=== PATIENT | female | born 1990 | race Hispanic/Latino ===

== ENCOUNTER 2016-08-10 14:22 | Emergency (ER) | payer MEDICARE, MEDICAID ==
[~2016-08-10 14:22] MED LIST: Acetaminophen PO; CARV25TA2 PO; CHOL500050 PO; DILT30TA30 PO; GABA-500 PO; INSLIS SUBQ; LORA10CA PO; MYCO180T3 PO; NORT25CA PO; OMEP40CA36 PO; OXYC-474 PO; PRD5T PO; PREG50CA PO; RANI150T11 PO; SEVE800T7 PO; SPIR25TA PO; TACR1CAP8 PO
[2016-08-10 14:27] VITALS: BP 180/110; PULSE 75; RESP 20; O2SAT 57
--- NOTE | 2016-08-10 16:08 | ED.REPORT ---
HPI-Extremity Problem Lower Date of Service Aug 10, 2016 ED Provider: Ezequiel Thomas MD Pt is a 26 y.o. female with a hx of ESRD and Type 1 DM who presents to the ED c/ o right foot pain worsening today. Pt is status post a right forefoot amputation , 1 week ago, performed by Dr. Jc. Pt is currently taking 5mg of Oxycodone every 4 hours with no relief. Pt is also on gabapentin. She states that her sugars have been good recently but has not taken them today. She states that she is currently on dialysis, Saturday, Saturday, and Saturday. Nursing Notes Stated Complaint: R FOOT Chief Complaint: Extremity Trauma Nursing Notes Reviewed: Yes Allergies: Coded Allergies: Contrast Media (Verified Allergy, Severe, FULL BODY RASH AND HIVES, ) tramadol (Verified Allergy, Unknown, 06/14/16) Scheduled ([Acetaminophen]) 325 MG TABLET 975 MG PO TID Carvedilol (Carvedilol) 25 Mg Tablet 50 MG PO BID Cholecalciferol (Vitamin D3) (Vitamin D3) 50,000 Unit Capsule 50,000 UNIT PO WEEKLY Given at Dialysis Diltiazem (Cardizem) 30 Mg Tablet 30 MG PO BID Gabapentin (Gabapentin) 100 Mg Capsule 200 MG PO TID Insulin Human Lispro (HumaLOG U100 Insulin Vial) 100 Unit/Ml Unit 0 UNIT SUBQ WMHS Check blood sugars before meals and at bedtime. Use correction factor only before meals. Blood Sugar Lispro Correction: <151, 0 units; 151-175, 1 unit; 176-200, 2 units; 201-225, 3 units; 226-250, 4 units; 251-275, 5 units; 276-300 , 6 units; 301-325, 7 units; 326-350, 8 units; 351-375, 9 units; 376-400, 10 units; >400, 12 units. Loratadine (Claritin) 10 Mg Capsule 10 MG PO DAILY Mycophenolate DR (Mycophenolic DR) 180 Mg Tablet 180 MG PO BID Nortriptyline (Nortriptyline) 25 Mg Capsule 25 MG PO HS Omeprazole (Omeprazole) 40 Mg Capsule.dr 40 MG PO DAILY Prednisone (PredniSONE) 5 Mg Tab 5 MG PO DAILY Pregabalin (Lyrica) 50 Mg Capsule 50 MG PO HS Ranitidine (Zantac) 150 Mg Tablet 150 MG PO BID Sevelamer Carbonate (Renvela) 800 Mg Tablet 2,400 MG PO TIDWM Spironolactone (Aldactone) 25 Mg Tablet 25 MG PO BID Tacrolimus (Tacrolimus) 1 Mg Capsule 1 MG PO BID Scheduled PRN Oxycodone (Roxicodone) 5 Mg Tablet 5-10 MG PO Q4H PRN PRN For Pain for acute ischemic limb pain General Time Seen by MD: 15:36 Chief Complaint Foot injury right Hx Obtained From: Patient Arrived By: Walk-in Onset Occurred: 1 week ago Symptom Duration: Since onset Location: : Foot right Quality: Painful Severity: Current: Severe Recent Healthcare: Previous surgery Past Medical History Past Medical History Notes: Business Machine Mechanic: Dr. Ra Dickens and Dr. Mckeon Auto Wash Buffer: Dr. Jc Past Medical History 1. end-stage renal disease--dialysis dependent with poor clearance and chronic uremia, 2. Hypertension with hypertensive heart disease and hypertensive nephrosclerosis. 3. 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 b. Fistula placement in left upper extremity February 2003, with previous attempted failed right-sided fistula. 4. Prednisone-induced diabetes mellitus, insulin requiring, diagnosed in September 2005. a. Admission in 2008 for DKA. 5. G3, P2, with one miscarriage. 6. GERD. 7. Allergic rhinitis. 8. Acute on chronic anemia 9. gangrene of left big toe 10. lower extremity vascular disease Past Surgical History Renal transplant, [facility], [place], 2004 Fistula placement, 2008 Placement of peritoneal dialysis catheter. Multiple left toe amputations. Reports: Tubal ligation Family History non-contributory Smoking History Never Smoker Social History Alcohol Use: Denies alcohol use Drug Use: Denies drug use Other Social History: Good social support, Local resident Ambulatory Status Independent Review of Systems Musculoskeletal: Reports: Extremity pain Complete sys rev & neg: except as marked. Physical Exam Initial Vital Signs Vital Signs (First) Date Time Temp Pulse Resp B/P Pulse Ox O2 Delivery O2 Flow Rate FiO2 08/10/16 14:27 36.9 75 20 180/110 57 Room Air Initial VS: Reviewed General/Constitutional: Well-developed, Well-nourished Head / Eyes: Atraumatic, Normocephalic Skin: Warm, Dry, No cyanosis Neurologic: Alert, Oriented, Nonfocal Psychiatric: Mood/affect normal, Behavior normal, Normal thought content Lower Extremity / Pelvis / MS: Atraumatic, Non-tender, No erythema Ankle / Foot: No erythema Amputation of right forefoot, nylon sutures present Right foot wound is clean and closed with no purulent discharge, well perfused, no erythema or induration. Left foot bandages are present. Respiratory / Chest: Atraumatic, Breath sounds NL, Breath sounds = bilat, No respiratory distress, No rales, No rhonchi, No wheezing, No retractions, No stridor Cardiovascular: Heart rate NL, Regular rhythm, Heart sounds NL, No gallop, No murmurs, No rubs Abdomen: Atraumatic, Soft, Non-tender, No guarding, No rebound, No distention Re-Eval/Medical Decision Med Decision/Clinical Course In summary, the patient is a 26-year-old female with a history of type I diabetes, severe peripheral neuropathy and recent amputation of the right forefoot presents the emergency department due to uncontrolled pain. She has had no fevers, redness, discharge, swelling or signs of infection about the operative site. Examination of the operative site shows good healing, intact skin and no evidence of infection. She is nontoxic in appearance. She reports that her blood sugars have been running from 100-200 and that she is taking her insulin. She is currently taking oxycodone 5 mg every 4 hours and states that this has been inadequate to control her pain. Here the emergency department she was detained on pulse oximetry and continuous cardiac monitoring and we missed her 2 mg of intramuscular hydromorphone. This managed her pain well. She has been advised to call her surgeon and primary care doctor for ongoing recommendations regarding pain management. In the meantime she may increase her oxycodone 25-10 mg every 6 hours. Follow initial precautions were reviewed in detail and she was discharged in good condition. Source of Hx: Old records Re-Evaluation/Progress : Time of Eval: 17:36 Re-Evaluation/Progress Note: Pt rechecked. Pt pain is improved. Discussed plan for discharge, pt understands and agrees with plan. Counseled Regarding: Diagnosis, Need for follow-up, When/why to return to ED Discharge & Departure Impression: Primary Impression: Postoperative pain Additional Impressions: History of type 1 diabetes mellitus Toe amputation status Laterality: right Qualified Code: Z89.421 - Acquired absence of other right toe(s) Disposition: Home Discharge Condition All VS Reviewed: Yes Condition: Stable Additional Instructions: Thank you for seeking care at emergency room. It is difficult for us to make definitive diagnoses in the ED but we believe that you are experiencing postoperative pain. Our primary goal today in the ED was to evaluate you for any life-threatening conditions. Your evaluation was reassuring. You were treated here with intramuscular hydromorphone. You are currently taking oxycodone 5 mg every 4-6 hours, you may increase this to 5-10 mg every 4- 6 hours. You should follow up with your surgeon or primary care physician regarding any ongoing prescriptions for pain medication. You should follow-up with your primary doctor in the next week. You should return to the ED immediately if you develop worse pain, redness, swelling, discharge from your surgical site, fevers, vomiting, cough, shortness of breath, chest pain, lightheadedness, weakness or any other concerning signs or symptoms. Thank you for letting us partake in your care today. Referrals: Neelima Dumont (PCP) Scribjaky Attestation Portions of this note were transcribed by Lida Darden. I, Dr. Thomas personally performed the history, physical exam and medical decision-making; I reviewed and confirmed the accuracy of the information in the transcribed note. Signed by: Philip Watts, 08/10/2016 and 1750. copies to: Neelima Dumont Beck O MD Aug 10, 2016 16:08 LIDA DARDEN Aug 10, 2016 16:19
[2016-08-10] MEDS ORDERED: HYDROmorphone 0.5 mg/0.5 mL iSecure Syringe IM ONE (16:15)
[2016-08-10 17:45] VITALS: BP 141/89; PULSE 97; RESP 14; O2SAT 98
[2016-11-05] MEDS ORDERED: INSU100V7 SUBQ ×2 (09:59)
== END 2016-08-10 17:46 | disposition home or self-care (01) ==
LOC: SED 14:22
DX: G89.18 Other acute postprocedural pain (principal); E10.22 Type 1 diabetes mellitus with diabetic chronic kidney disease; E10.40 Type 1 diabetes mellitus with diabetic neuropathy, unspecified; M79.671 Pain in right foot; I12.0 Hypertensive chronic kidney disease with stage 5 chronic kidney disease or end stage renal disease; N18.6 End stage renal disease; K21.9 Gastro-esophageal reflux disease without esophagitis; Z89.431 Acquired absence of right foot; Z99.2 Dependence on renal dialysis; Z79.4 Long term (current) use of insulin; Z91.041 Radiographic dye allergy status; Z88.5 Allergy status to narcotic agent
CPT/HCPCS: 96372; 99283; J1170

== ENCOUNTER 2016-08-23 01:01 | Day surgery (SDC) | payer MEDICARE, MEDICAID ==
[~2016-08-23] VITALS: Ht 149.9 cm; Wt 52.0 kg
[2016-08-23] VITALS (11 sets, daily range): BP systolic 111–180; BP diastolic 77–98; PULSE 68–84; RESP 12–20; O2SAT 94–100
--- NOTE | 2016-08-23 06:30 | NUR ---
ADMISSION NOTE FEMALE PT ADMITTED FOR FISTULOGRAM. DISCUSSED PLAN OF CARE WITH PT . SEE ADMIT AND FLOW SHEET
[2016-08-23] MEDS ORDERED: NOVALOG SQ (07:32)
[2016-08-23] MEDS ORDERED: ONDA4TAB6 PO (07:38)
[2016-08-23] MEDS ORDERED: FLUD0.1T PO (07:38)
[2016-08-23] MEDS ORDERED: Heparin 5,000 Units/500 mL NS Premix IV ONE ×3 (07:42→09:04)
[2016-08-23 07:43] LABS: BASOPHILS % (AUTO) 0 % (0-3); EOSINOPHILS % (AUTO) 0.6 % (0-5); MONOCYTES % (AUTO) 0.9 % (4-12); Mean Corpuscular Hemoglobin 26.8 pg (27.0-35.0); Mean Corpuscular Volume 82.2 fL (81-100); NEUTROPHILS % (AUTO) 87.8 % (40-74); Platelet Count 196 bil/L (150-400)
[2016-08-23 08:01] LABS: INR 1.01 ratio
[2016-08-23] MEDS ORDERED: Heparin 1,000 Unit/mL 10 mL Inj ONE (08:02)
[2016-08-23] MEDS ORDERED: 0.9% Sodium Chloride 1,000 ML ONE (08:11)
[2016-08-23] MEDS ORDERED: predniSONE 20 mg Tablet PO ONE (08:20)
[2016-08-23] MEDS ORDERED: CeFAZolin 1 Gm/50 mL D5W Duplex Bag IV ONE (08:27)
[2016-08-23] MEDS ORDERED: fentaNYL-PF 50 mCg/mL 2 mL Inj ONE (08:43)
--- NOTE | 2016-08-23 10:00 | NUR ---
POST PROCEDURE NOTE RETURNED FROM MOTION PICTURE PROJECTIONIST. PURSE STRING SUTURE ON LEFT SITE. DROWSY. SEE FLOW SHEET
[2016-08-23] MEDS ORDERED: diphenhydrAMINE 25 mg Capsule PO ONE ×2 (10:40→10:50)
--- NOTE | 2016-08-23 13:30 | DRSVH ---
PROCEDURE: ARTERIO VENOUS FISTULOGRAM (PNL) INDICATIONS: ESRD TECHNIQUE: FLUOROSCOPY TIME: 14.4 minutes. Technique: 1. Conscious sedation for 60 minutes. 2. Antegrade access of the left upper extremity venous outflow. 3. Blood angioplasty of a moderate grade stenosis at the confluence of the cephalic and axillary vein s. 4. Completion fistulogram. COMPARISON: [facility], XA, ARTERIO VENOUS FISTULOGRAM (PNL), 06/19/2016, 10:51. The indications, alternatives, benefits, risks, and complications of the procedure were explained to the patient. Informed written consent was obtained and placed in the chart. The patient was brought to the angiography suite, and conscious sedation was administered intravenously by snf s taff, while continuous cardiorespiratory monitoring was performed. Maximum sterile barrier technique was employed per standard protocol, including hand hygiene, cap, ma sk, sterile gown and gloves, and 2% chlorhexidine. One percent lidocaine was used to anesthetize the skin over the area of interest. Using Seldinger technique and a micropuncture kit, the venous outflow was accessed in antegrade fashion at the peripheral portion of the vein. Fistulogram was performed i n stations to the level of the SVC. The micropuncture sheath was exchanged for a short 6 [place] sheat h. An 035 wire was advanced with the tip in the central portion of the axillary vein with the aid of a Glidewire and Kumpe catheter. Balloon angioplasty was performed for a moderate grade stenosis at th e central portion of the cephalic vein. Fistulogram was performed. Multiple attempts were undertaken to guide a wire into the brachiocephalic vein across the weblike stenosis without success. This is at tributable to a large 360 curve in the central portion of the cephalic vein. At this point, the wire was removed and the sheath was removed and hemostasis was achieved. FINDINGS: Initial fistulogram demonstrates a patent venous outflow of the peripheral and midportion of the left upper extremity fistula. A moderate grade stenosis is present at the confluence of the ce phalic and axillary veins. Status post angioplasty of this region, no definite stenosis persists. A focal high-grade weblike stenosis is present at the confluence of the axillary and internal jugular veins. No angioplasty was performed of this region as a wire could not access this stenosis. IMPRESSION: 1. Status post balloon angioplasty of a moderate grade stenosis at the confluence of the cephalic and axillary veins. 2. High-grade, weblike stenosis at the confluence of the internal jugular and axillary veins. Please note, given the marked tortuosity of the inflow vein, a wire could not be passed across the stenosis from the left upper extremity. This stenosis is likely the etiology of the patient's left upper extre mity swelling. This lesion may be accessible from a right femoral vein approach. Repeat fistulogram f rom a right femoral approach is recommended if. This finding was discussed with Dr. Gastelum at 1:15 PM on 08/23/16. Dictated by: Saray Veliz M.D. on 08/23/2016 at 13:06 Approved by: Saray Veliz M.D. on 08/23/2016 at 13:28
--- NOTE | 2016-08-23 14:15 | NUR ---
DISCHARGE NOTE SITE STABLE, UP IN ROOM, NO COMPLAINTS.INSTRUCTIONS GIVEN. HOME WITH
[2016-11-05] MEDS ORDERED: INSU100V7 SUBQ ×2 (09:59)
== END 2016-08-23 23:59 | disposition home or self-care (01) ==
LOC: SOUO 01:01
PROVIDERS: ATTEND Radiology Diagnostic Radiology
DX: I87.1 Compression of vein (principal); E11.22 Type 2 diabetes mellitus with diabetic chronic kidney disease; I12.0 Hypertensive chronic kidney disease with stage 5 chronic kidney disease or end stage renal disease; N18.6 End stage renal disease; E11.42 Type 2 diabetes mellitus with diabetic polyneuropathy; N25.0 Renal osteodystrophy; D63.1 Anemia in chronic kidney disease; Z79.4 Long term (current) use of insulin; Z91.041 Radiographic dye allergy status; Z99.2 Dependence on renal dialysis
CPT/HCPCS: 36415; 36902; 80048; 85025; 85610; 85730; 99152; 99153; C1725; C1769; C1894; J1644; J2250; J3010; Q9967

== ENCOUNTER 2016-08-30 00:22 | Day surgery (SDC) | payer MEDICARE, MEDICAID ==
[~2016-08-30] VITALS: Ht 152.4 cm; Wt 52.0 kg
[2016-08-30] VITALS (10 sets, daily range): BP systolic 134–162; BP diastolic 85–93; PULSE 71–86; RESP 15–16; O2SAT 95–100
[~2016-08-30 00:22] MED LIST changes: +FLUD0.1T PO; -INSLIS SUBQ; +NOVALOG SQ; +ONDA4TAB6 PO; -SPIR25TA PO
[2016-08-30] MEDS ORDERED: 0.9% Sodium Chloride 1,000 ML ONE (09:17)
[2016-08-30] MEDS ORDERED: Heparin 5,000 Units/500 mL NS Premix IV ONE (09:20)
[2016-08-30] MEDS ORDERED: Heparin 1,000 Unit/mL 10 mL Inj ONE (09:20)
[2016-08-30] MEDS ORDERED: CeFAZolin 1 Gm/50 mL D5W Duplex Bag IV ONE (09:25)
[2016-08-30] MEDS ORDERED: fentaNYL-PF 50 mCg/mL 2 mL Inj ONE (09:46)
--- NOTE | 2016-08-30 11:46 | DRSVH ---
PROCEDURE: VENOGRAPHY EXTREMITY UNILAT INDICATIONS: ESRD COMPARISON: [facility], XA, ARTERIO VENOUS FISTULOGRAM (PNL), 08/23/2016, 8:52. Fluoroscopy time: 9.8 minutes Technique: 1. Conscious sedation for 30 minutes. 2. Sonographically guided right femoral vein access. 3. Right brachiocephalic venogram. 4. Sheath removal hemostasis. The indications, alternatives, benefits, risks, and complications of the procedure were explained to the patient. Informed written consent was obtained and placed in the chart. The patient was brought to the angiography suite, and conscious sedation was administered intravenously by long term s taff, while continuous cardiorespiratory monitoring was performed. Maximum sterile barrier technique was employed per standard protocol, including hand hygiene, cap, ma sk, sterile gown and gloves, and 2% chlorhexidine. Sterile ultrasound probe cover was also utilized. 1% lidocaine was used to anesthetize the skin over the right femoral vein. Under ultrasound guidanc e using a micropuncture kit the right femoral vein was accessed in an antegrade fashion. The micropun cture sheath was exchanged for a 5 [place] sheath an 035 wire and angled catheter were advanced into t he right brachiocephalic vein. Multiple attempts were undertaken to advance the wire into the central portion of the subclavian vein without success. A venogram was performed in this region. Once the ce ntral portion of the subclavian vein was determined to be completely occluded, the wire, catheter, an d sheath were removed and hemostasis was achieved. FINDINGS: The central aspect of the left subclavian vein is occluded at the confluence with the inter nal jugular vein. IMPRESSION: 1. 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 In retrospect, this finding is corroborated on the fistulogram dated 08/23/16 . There is delayed filling of the brachiocephalic vein with respect to the subclavian vein, likely be cause the brachiocephalic vein is filling via collaterals not the subclavian vein. This finding was discussed with Dr. Gastelum at 11:39 AM on 08/30/16. Consider vascular surgery consulta tion. Dictated by: Saray Veliz M.D. on 08/30/2016 at 11:36 Approved by: Saray Veliz M.D. on 08/30/2016 at 11:44
--- NOTE | 2016-08-30 12:30 | NUR ---
TD ASSUMED CARE OF PT AT 1040 UPON RETURN FROM CHILDREN'S BOOK AUTHOR. RIGHT GROIN VENOUS APPROACH IS COVERED WITH OPSITE AND IS C/D/I WITH NO BLEEDING OR HEMATOMA NOTED. RIGHT POST TIB 2+, RIGHT LEG IS WARM. PT IS AWAKE AND TAKING MEAL. VSS.
--- NOTE | 2016-08-30 13:10 | NUR ---
TD DISCHARGE PT COMPLETED BEDREST TIME. RIGHT GROIN HAS REMAINED STABLE, NO BLEEDING OR HEMATOMA PRESENT. DISCHARGE INSTRUCTIONS INCLUDING POST SEDATION AND F/U WERE REVIEWED AND PT VERBALIZED UNDERSTANDING. SHE WAS DISCHARGED WITH FAMILY MEMBER AT 1300 VIA W/C IN STABLE CONDITION.
[2016-11-05] MEDS ORDERED: INSU100V7 SUBQ ×2 (09:59)
== END 2016-08-30 23:59 | disposition home or self-care (01) ==
LOC: SOUO 00:22
PROVIDERS: ATTEND Radiology Vascular & Interventional Radiology
DX: I82.B12 Acute embolism and thrombosis of left subclavian vein (principal); I12.0 Hypertensive chronic kidney disease with stage 5 chronic kidney disease or end stage renal disease; E11.22 Type 2 diabetes mellitus with diabetic chronic kidney disease; N18.6 End stage renal disease; N25.0 Renal osteodystrophy; D63.1 Anemia in chronic kidney disease; Z94.0 Kidney transplant status; Z99.2 Dependence on renal dialysis; Z89.431 Acquired absence of right foot; Z79.4 Long term (current) use of insulin; Z79.899 Other long term (current) drug therapy
CPT/HCPCS: 36011; 75820; C1769; J1644; J2250; J3010; Q9967

== ENCOUNTER 2016-09-02 16:42 | Emergency (ER) | payer MEDICARE, MEDICAID ==
[~2016-09-02] VITALS: Ht 152.4 cm; Wt 53.0 kg
[2016-09-02 16:55] VITALS: BP 214/103; PULSE 96; RESP 15; O2SAT 95
[2016-09-02 17:40] VITALS: BP 204/99
--- NOTE | 2016-09-02 18:11 | ED.REPORT ---
HPI-Extremity Problem Lower Date of Service Sep 02, 2016 ED Provider: Dr. Alexi Castellon Pt is a 26-year-old female with a history of ESRD and Type 1 DM who presents to the ED c/o right foot pain worsening today. Pt is status post right forefoot amputation, three months ago, performed by Dr. Jc. Pt is currently taking 5mg of Oxycodone every 4 hours with no relief. Pt is also on gabapentin. The foot began to get swollen and fill with pus about three weeks ago. Upon instruction from her physician, she drained the fluid out herself. Pt also reports abdominal pain and nausea. She denies vomiting and diarrhea and has dialysis scheduled tomorrow. Nursing Notes Stated Complaint: PAIN IN FEET,STOMACH ,LEG Chief Complaint: Extremity Trauma Nursing Notes Reviewed: Yes Allergies: Coded Allergies: Contrast Media (Verified Allergy, Severe, FULL BODY RASH AND HIVES, ) tramadol (Verified Allergy, Unknown, Rash, 09/02/16) Scheduled ([Acetaminophen]) 325 MG TABLET 975 MG PO TID ([Novalog]) SQ ACHS FLEX PEN, PRN WITH MEALS Carvedilol (Carvedilol) 25 Mg Tablet 50 MG PO BID Cholecalciferol (Vitamin D3) (Vitamin D3) 50,000 Unit Capsule 50,000 UNIT PO WEEKLY Given at Dialysis Diltiazem (Cardizem) 30 Mg Tablet 30 MG PO BID Fludrocortisone Acetate (Fludrocortisone Acetate) 0.1 Mg Tablet 0.1 MG PO BID Gabapentin (Gabapentin) 100 Mg Capsule 200 MG PO TID Loratadine (Claritin) 10 Mg Capsule 10 MG PO DAILY Mycophenolate DR (Mycophenolic DR) 180 Mg Tablet 180 MG PO BID Nortriptyline (Nortriptyline) 25 Mg Capsule 25 MG PO HS Omeprazole (Omeprazole) 40 Mg Capsule.dr 40 MG PO DAILY Prednisone (PredniSONE) 5 Mg Tab 5 MG PO DAILY Pregabalin (Lyrica) 50 Mg Capsule 50 MG PO HS Ranitidine (Zantac) 150 Mg Tablet 150 MG PO BID Sevelamer Carbonate (Renvela) 800 Mg Tablet 2,400 MG PO TIDWM Tacrolimus (Tacrolimus) 1 Mg Capsule 1 MG PO BID Scheduled PRN Ondansetron (Zofran) 4 Mg Tablet 4 MG PO Q4H PRN PRN For Nausea Oxycodone (Roxicodone) 5 Mg Tablet 5-10 MG PO Q4H PRN PRN For Pain for acute ischemic limb pain General Time Seen by MD: 18:11 Chief Complaint Foot injury right Hx Obtained From: Patient Arrived By: Walk-in Onset Occurred: 1 day ago Symptom Duration: Since onset Location: : Foot right (right forefoot amputation 3 months ago) Quality: Painful Severity: Current: Moderate Recent Healthcare: Recent doctor visit, Recent hospitalization Similar Sx Previous: Yes Past Medical History Past Medical History Notes: Rate Quoting Operator: Dr. Ra Dickens and Dr. Mckeon Surveillance Specialist: Dr. Jc Past Medical History 1. end-stage renal disease--dialysis dependent with poor clearance and chronic uremia, 2. Hypertension with hypertensive heart disease and hypertensive nephrosclerosis. 3. 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 b. Fistula placement in left upper extremity February 2003, with previous attempted failed right-sided fistula. 4. Prednisone-induced diabetes mellitus, insulin requiring, diagnosed in September 2005. a. Admission in 2008 for DKA. 5. G3, P2, with one miscarriage. 6. GERD. 7. Allergic rhinitis. 8. Acute on chronic anemia 9. gangrene of left big toe 10. lower extremity vascular disease Past Surgical History Renal transplant, [facility], 2004 Fistula placement, 2008 Placement of peritoneal dialysis catheter. Multiple left toe amputations. Reports: Tubal ligation Family History non-contributory Smoking History Never Smoker Social History Alcohol Use: Denies alcohol use Drug Use: Denies drug use Other Social History: Good social support, Local resident Ambulatory Status Independent Review of Systems Musculoskeletal: Reports: Extremity pain (right foot pain) Complete sys rev & neg: except as marked. GI: Reports: Abdominal pain, Nausea, Denies: Diarrhea, Vomiting Physical Exam Initial Vital Signs Vital Signs (First) Date Time Temp Pulse Resp B/P Pulse Ox O2 Delivery O2 Flow Rate FiO2 09/02/16 16:55 36.4 96 15 214/103 95 Room Air Initial VS: Reviewed Head / Eyes: Atraumatic, Normocephalic, PERRL ENT: Mucous membranes moist, Conjunctiva normal, No scleral icterus Neck: Supple, Non-tender, Full range of motion Respiratory: Breath sounds normal, Clear to auscultation, No respiratory distress Cardiovascular: Regular rate & rhythm, Heart sounds normal, Intact distal pulses Abdomen / GI: Soft, Non-tender, No guarding, No rebound, No distention Upper Extremities: Vascular intact, Neuro intact, No swelling, No tenderness Neurologic: Alert, Oriented, Nonfocal Psychiatric: Mood/affect normal, Behavior normal, Normal thought content Lower Extremity / Pelvis / MS: Atraumatic, Full range of motion Right Foot: Positive: Amputation (amputation of all 5 right toes), Erythema present, Swelling present... (Mild), Tenderness present... (Mild) Left Foot: Positive: Amputation (amputation 5 left toes, healing well) lateral aspect of right toe amputation is healing well with mild swelling medial aspect of toe there is a 1 cm area of wound with yellow exudate and mild erythema General/Constitutional: Awake, Alert, Well appearing, Cooperative, Not toxic appearing Tenderness/Guarding/Rebound: Positive: Tender RUQ... (Mild) Interpretation & Diagnostics Interpretation & Diagnostics: US ABDOMEN: No specific acute abnormality. Probably an element of fatty infiltration of the liver. Mild splenomegaly. Radiologist: Yonatan Rabago M.D. Lab Results Interpretation Result Diagram: 09/02/16191209/02/161912 Test 09/02/16 19:13 White Blood Count 7.1th/mm3 (3.8-10.1) Red Blood Count 4.14mil/mm3 (3.90-5.20) Hemoglobin 11.3g/dL (12.0-15.6) Hematocrit 36.2% (35.0-46.0) Mean Corpuscular Volume 87.4fL (81-100) Mean Corpuscular Hemoglobin 27.3pg (27.0-35.0) Mean Corpuscular Hemoglobin Concent 31.2% (32.0-37.0) Red Cell Distribution Width 16.7% (12.3-15.4) Platelet Count 155bil/L (150-400) Neutrophils (%) (Auto) 81.0% (40-74) Lymphocytes (%) (Auto) 12.0% (14-46) Monocytes (%) (Auto) 3.7% (4-12) Eosinophils (%) (Auto) 2.1% (0-5) Basophils (%) (Auto) 0.1% (0-3) Sodium Level 141mEq/L (134-144) Potassium Level 5.3mEq/L (3.5-5.2) Chloride Level 99mEq/L (97-108) Carbon Dioxide Level 24mmol/L (18-29) Blood Urea Nitrogen 56mg/dL (6-20) Creatinine 5.98mg/dL (0.57-1.00) Estimat Glomerular Filtration Rate 12mL/min (>59) Glucose Level 293mg/dL (60-99) Calcium Level 8.6mg/dL (8.5-10.1) Total Bilirubin 0.4mg/dL (0.0-1.2) Aspartate Amino Transf (AST/SGOT) 11U/L (0-50) Alanine Aminotransferase (ALT/SGPT) 8U/L (0-32) Alkaline Phosphatase 96U/L (25-150) C-Reactive Protein 0.1mg/dL (0.0-0.5) Total Protein 6.6g/dL (6.4-8.4) Albumin 3.9g/dL (3.4-5.0) Hold Soliman Top Tube Received (Received) X-Ray Interpretation Xray Interpretation: FOOT X-RAY IMPRESSION: Postsurgical sequelae. No acute fracture. No osseous lesion. If clinical suspicion and/or symptoms persist, further assessment with repeat plainfilms, or advanced imaging (e.g., CT, MRI, or bone scan) may be helpful for further assessment. Dictated by: Aime Springer M.D. on 09/02/2016 at 19:13 Approved by: Aime Springer M.D. on 09/02/2016 at 19:14 X-Ray Ordered: Foot right Interpretation / Wet Read by: Interpret - Radiologist Re-Eval/Medical Decision Med Decision/Clinical Course 26-year-old female with complex medical history presents with wound infection of her foot. She also right upper quadrant pain. Laboratory work is reassuring. This shows her chronic renal failure. Potassium is 5.3. The wound did appear to be infected. IV clindamycin was infused. Ultrasound of her belly was benign. I consulted with Dr. Monte the supervisor color making. He recommends oral clindamycin and we will have outpatient follow-up by for her scheduled appointment or tomorrow if she is not improved. Re-Evaluation/Progress #1: Time of Eval: 20:26 Patient Status: Mild relief Re-Evaluation/Progress Note: Pt rechecked. Informed pt plan for treatment. Pt understands and agrees with plan. Re-Evaluation/Progress #2: Time of Eval: 23:15 Patient Status: Mild relief Re-Evaluation/Progress Note: Pt rechecked. Informed pt of diagnosis and plan for treatment. Pt understands and agrees with plan. F/U and RTER warnings given. All questions addressed. Counseled Regarding: Diagnosis, Lab results, Need for follow-up, When/why to return to ED Discharge & Departure Impression: Primary Impression: Postoperative wound cellulitis Encounter type: initial encounter Qualified Code: T81.4XXA - Infection following a procedure, initial encounter Additional Impression: Abdominal pain Abdominal location: right upper quadrant Qualified Code: R10.11 - Right upper quadrant pain Disposition: Home Discharge Condition All VS Reviewed: Yes Condition: Stable Patient Instructions: Acute Abdominal Pain (ED), Cellulitis (DC) Additional Instructions: Please see the handwritten discharge. [facility] Referrals: Neelima Dumont (PCP) Scribe Attestation Portion of this note were transcribed by Eric Dodson. I, Dr. Castellon, personally performed the history, physical exam, and medical decision-making: I reviewed and confirmed the accuracy for the information in the transcribed note. Signed by: teresa Oakley, 09/02/16 0656 copies to: Neelima Dumont Todd P DO Sep 02, 2016 18:11 ERIC DODSON Sep 02, 2016 18:33
[2016-09-02] MEDS ORDERED: Clindamycin Inj 600 MG in IV Premix 1 EACH IV ONE (18:45)
[2016-09-02 19:12] VITALS: BP 210/101; PULSE 93; O2SAT 99
--- NOTE | 2016-09-02 19:15 | DRSVH ---
PROCEDURE: X-RAY RIGHT FOOT COMPLETE, MINIMUM THREE VIEWS ([id number]) INDICATIONS: post amputation pain and wound infection TECHNIQUE: 3 views of the foot were acquired. COMPARISON: None. FINDINGS: Bones: No fractures or dislocations. No suspicious bony lesions. The digits have been resected. Soft tissues: No tibiotalar joint effusion. Achilles tendon appears normal. IMPRESSION: Postsurgical sequelae. No acute fracture. No osseous lesion. If clinical suspicion and/or symptoms persist, further assessment with repeat plainfilms, or advanced imaging (e.g., CT, MRI, or bone scan) may be helpful for further assessment. Dictated by: Aime Springer M.D. on 09/02/2016 at 19:13 Approved by: Aime Springer M.D. on 09/02/2016 at 19:14
[2016-09-02 19:24] LABS: BASOPHILS % (AUTO) 0.1 % (0-3); EOSINOPHILS % (AUTO) 2.1 % (0-5); MONOCYTES % (AUTO) 3.7 % (4-12); Mean Corpuscular Hemoglobin 27.3 pg (27.0-35.0); Mean Corpuscular Volume 87.4 fL (81-100); Platelet Count 155 bil/L (150-400)
[2016-09-02] MEDS ORDERED: HYDROmorphone 1 mg/mL Inj IVPUSH ONE ×2 (19:45→20:20)
[2016-09-02 20:12] VITALS: BP 193/100
[2016-09-02] MEDS ORDERED: Labetalol 5 mg/mL 4 mL Inj IVPUSH ONE (20:15)
[2016-09-02 21:35] VITALS: BP 197/103
--- NOTE | 2016-09-03 08:50 | DRSVH ---
PROCEDURE: US ABDOMEN INDICATIONS: right upper quadrant pain and tenderness TECHNIQUE: Real-time scanning was performed of the abdominal and retroperitoneal organs, with image documentatio n. COMPARISON: [facility], US, US ABDOMEN, 12/06/2015, 10:39. FINDINGS: Liver length: 16.84 cm Gallbladder Wall Thickness: 2.40 mm CHD: 5 mm CBD: 5.20 mm Spleen length: 13. 4 Aorta(Proximal): 2.19 cm Aorta(Mid): 2.03 cm Liver: Liver is diffusely increased in echogenicity. No focal hepatic abnormalities identified. No rmal hepatic size. Gallbladder: 3 mm gallbladder polyp otherwise normal gallbladder. Biliary ducts: Intrahepatic bile ducts are non-dilated. Extrahepatic bile duct caliber is normal. Normal is 6-7 mm or less in diameter, or 10 mm or less post-cholecystectomy. Pancreas: Visualized portions of the pancreas are sonographically normal. Spleen: Spleen is normal in size and homogeneous in echotexture. Kidneys: Bilateral renal atrophy in the [place] kidneys not visualized. Right lower quadrant allograf t transplant kidney is noted measuring 10 cm in length and no hydronephrosis is seen. Aorta: Visualized aorta is normal in caliber at less than 3 cm. Iliacs: Not visualized. IVC: Intrahepatic inferior vena cava is patent. Miscellaneous: Trace free intraperitoneal fluid. IMPRESSION: 1. Increased hepatic echogenicity noted likely related to fatty infiltration of the liver but other s ources of hepatocellular disease cannot be excluded. Recommend clinical correlation. 2. 3 mm gallbladder polyp unchanged. 3. Trace free intraperitoneal fluid. 4. Sonographic splenomegaly redemonstrated. Dictated by: Kemal Siegel [facility] Interpreted: Zoey Mai MD on 09/03/2016 at 8:46 Transcribed by: RAKESH on 09/03/2016 at 8:49 Approved by: Zoey Mai MD, PhD on 09/03/2016 at 17:02
[2016-11-05] MEDS ORDERED: INSU100V7 SUBQ ×2 (09:59)
== END 2016-09-02 23:53 | disposition home or self-care (01) ==
LOC: SED 16:42
DX: T81.4XXA Infection following a procedure, initial encounter (principal); Y83.8 Other surgical procedures as the cause of abnormal reaction of the patient, or of later complication, without mention of misadventure at the time of the procedure; Y92.9 Unspecified place or not applicable; Y99.8 Other external cause status; R10.11 Right upper quadrant pain; E10.22 Type 1 diabetes mellitus with diabetic chronic kidney disease; N18.6 End stage renal disease; K21.9 Gastro-esophageal reflux disease without esophagitis; Z99.2 Dependence on renal dialysis; Z88.8 Allergy status to other drugs, medicaments and biological substances; Z91.041 Radiographic dye allergy status
CPT/HCPCS: 36415; 73630; 76700; 80053; 82948; 85025; 86140; 96365; 96375; 96376; 99285; J1170

== ENCOUNTER 2016-09-04 19:31 | Emergency (ER) | payer MEDICARE, MEDICAID ==
[~2016-09-04] VITALS: Ht 152.4 cm; Wt 53.0 kg
[2016-09-04 19:33] VITALS: BP 189/104; PULSE 95; RESP 18; O2SAT 100
[2016-09-04 19:39] VITALS: BP 188/101
--- NOTE | 2016-09-04 20:59 | ED.REPORT ---
HPI-Abd Pain F Under 40 Date of Service Sep 04, 2016 ED Provider: Yohannes Huizar MD Pt is a 26 y.o. female with an extensive medical hx including ESRD on hemodialysis, HTN, DM, and GERD who presents to the ED c/o gradually worsening abdominal pain onset 4 days ago. Pt reports associated belching, nausea, and fever (101.3F). She denies vomiting, diarrhea, constipation, dark/tarry stool, and cough. She reports currently taking ranitidine and omeprazole for GERD. She is also on Clindamycin for an infection. She denies intake of spring or well water. Pt received hemodialysis today and is also scheduled for tomorrow. Nursing Notes Stated Complaint: STOMACH PAIN Chief Complaint: Female Abdominal Pain Nursing Notes Reviewed: Yes Allergies: Coded Allergies: Contrast Media (Verified Allergy, Severe, FULL BODY RASH AND HIVES, ) tramadol (Verified Allergy, Unknown, Rash, 09/04/16) Scheduled ([Acetaminophen]) 325 MG TABLET 975 MG PO TID ([Novalog]) SQ ACHS FLEX PEN, PRN WITH MEALS Carvedilol (Carvedilol) 25 Mg Tablet 50 MG PO BID Cephalexin (Keflex) 500 Mg Capsule 500 MG PO BID Cholecalciferol (Vitamin D3) (Vitamin D3) 50,000 Unit Capsule 50,000 UNIT PO WEEKLY Given at Dialysis Diltiazem (Cardizem) 30 Mg Tablet 30 MG PO BID Fludrocortisone Acetate (Fludrocortisone Acetate) 0.1 Mg Tablet 0.1 MG PO BID Gabapentin (Gabapentin) 100 Mg Capsule 200 MG PO TID Loratadine (Claritin) 10 Mg Capsule 10 MG PO DAILY Mycophenolate DR (Mycophenolic DR) 180 Mg Tablet 180 MG PO BID Nortriptyline (Nortriptyline) 25 Mg Capsule 25 MG PO HS Omeprazole (Omeprazole) 40 Mg Capsule.dr 40 MG PO DAILY Prednisone (PredniSONE) 5 Mg Tab 5 MG PO DAILY Pregabalin (Lyrica) 50 Mg Capsule 50 MG PO HS Ranitidine (Zantac) 150 Mg Tablet 150 MG PO BID Sevelamer Carbonate (Renvela) 800 Mg Tablet 2,400 MG PO TIDWM Tacrolimus (Tacrolimus) 1 Mg Capsule 1 MG PO BID Scheduled PRN Ondansetron (Zofran) 4 Mg Tablet 4 MG PO Q4H PRN PRN For Nausea Oxycodone (Roxicodone) 5 Mg Tablet 5-10 MG PO Q4H PRN PRN For Pain for acute ischemic limb pain General Time Seen by MD: 20:59 Chief Complaint Abdominal pain Hx Obtained From: Patient Sudden in Onset?: Yes Onset Occurred: 4 days ago Symptom Duration: Since onset Progression since Onset: Gradually worsening Location: : Diffuse Quality: Painful Radiation: : Back Severity: Current: Moderate Past Medical History Past Medical History Notes: Quality Management Coordinator: Dr. Ra Dickens and Dr. Mckeon Software Build Engineer: Dr. Jc Past Medical History 1. end-stage renal disease--dialysis dependent with poor clearance and chronic uremia, 2. Hypertension with hypertensive heart disease and hypertensive nephrosclerosis. 3. 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 b. Fistula placement in left upper extremity February 2003, with previous attempted failed right-sided fistula. 4. Prednisone-induced diabetes mellitus, insulin requiring, diagnosed in September 2005. a. Admission in 2008 for DKA. 5. G3, P2, with one miscarriage. 6. GERD. 7. Allergic rhinitis. 8. Acute on chronic anemia 9. gangrene of left big toe 10. lower extremity vascular disease Past Surgical History Renal transplant, [facility], 2004 Fistula placement, 2008 Placement of peritoneal dialysis catheter. Multiple left toe amputations. Reports: Tubal ligation Family History non-contributory Smoking History Never Smoker Social History Alcohol Use: Denies alcohol use Drug Use: Denies drug use Other Social History: Good social support, Local resident Ambulatory Status Independent Review of Systems Constitutional: Reports: Fever (101.3F) Respiratory: Denies: Non-productive cough GI: Reports: Abdominal pain, Belching, Nausea, Denies: Bloody/tarry stool, Constipation, Diarrhea, Vomiting Complete sys rev & neg: except as marked. Physical Exam Initial Vital Signs Vital Signs (First) Date Time Temp Pulse Resp B/P Pulse Ox O2 Delivery O2 Flow Rate FiO2 09/04/16 19:33 36.9 95 18 189/104 100 Room Air Initial VS: Reviewed Head / Eyes: Atraumatic Skin: Warm, Dry Neurologic: Alert, Oriented, Nonfocal Psychiatric: Mood/affect normal, Behavior normal, Normal thought content General/Constitutional: Awake, Alert, Not toxic appearing Respiratory / Chest: Atraumatic, Breath sounds NL, Breath sounds = bilat, No respiratory distress, No rales, No rhonchi, No wheezing, No retractions, No stridor Cardiovascular: Heart rate NL, Regular rhythm, Heart sounds NL, No gallop, No murmurs, No rubs Abdomen: Atraumatic, Soft, No guarding, No rebound, BS normoactive, No distention Tenderness/Guarding/Rebound: Positive: Tender RUQ... (Mild) Back: Atraumatic Interpretation & Diagnostics Lab Results Interpretation Result Diagram: 09/04/16210309/04/162103 Test 09/04/16 21:04 09/04/16 21:26 White Blood Count 6.8th/mm3 (3.8-10.1) Red Blood Count 4.06mil/mm3 (3.90-5.20) Hemoglobin 11.1g/dL (12.0-15.6) Hematocrit 36.2% (35.0-46.0) Mean Corpuscular Volume 89.2fL (81-100) Mean Corpuscular Hemoglobin 27.3pg (27.0-35.0) Mean Corpuscular Hemoglobin Concent 30.7% (32.0-37.0) Red Cell Distribution Width 17.7% (12.3-15.4) Platelet Count 156bil/L (150-400) Neutrophils (%) (Auto) 70.5% (40-74) Lymphocytes (%) (Auto) 16.6% (14-46) Monocytes (%) (Auto) 7.9% (4-12) Eosinophils (%) (Auto) 4.1% (0-5) Basophils (%) (Auto) 0.3% (0-3) Sodium Level 140mEq/L (134-144) Potassium Level 5.2mEq/L (3.5-5.2) Chloride Level 98mEq/L (97-108) Carbon Dioxide Level 26mmol/L (18-29) Blood Urea Nitrogen 42mg/dL (6-20) Creatinine 5.17mg/dL (0.57-1.00) Estimat Glomerular Filtration Rate 14mL/min (>59) Glucose Level 255mg/dL (60-99) Calcium Level 8.1mg/dL (8.5-10.1) Magnesium Level 1.9mg/dL (1.6-2.6) Total Bilirubin 0.3mg/dL (0.0-1.2) Aspartate Amino Transf (AST/SGOT) 14U/L (0-50) Alanine Aminotransferase (ALT/SGPT) 8U/L (0-32) Alkaline Phosphatase 91U/L (25-150) Total Protein 5.8g/dL (6.4-8.4) Albumin 3.3g/dL (3.4-5.0) Lipase 59U/L (13-60) Human Chorionic Gonadotropin, Qual 0.500 (Negative) Hold Soliman Top Tube Received (Received) Urine Color Yellow (YELLOW) Urine Appearance Clear (CLEAR,HAZY) Urine pH 8.5 (5.0-8.0) Urine Specific [place] 1.020 (1.003-1.035) Urine Protein 30mg/dL (NEG,TRACE) Urine Glucose (UA) 500mg/dL (NEGATIVE) Urine Ketones Negativemg/dL (NEGATIVE) Urine Occult Blood Trace (NEGATIVE) Urine Nitrite Negative (NEGATIVE) Urine Bilirubin Negative (NEGATIVE) Urine Urobilinogen Normalmg/dL (NORMAL) Urine Leukocyte Esterase Trace (NEGATIVE) Urine RBC 0-2/hpf (0-2) Urine WBC 6-10/hpf (0-5) Urine Epithelial Cells None/hpf (NONE-MOD) Urine Crystals None seen (NONE SEEN) Urine Bacteria Few/hpf (NONE-FEW) Urine Hyaline Casts None/lpf (NONE) Urine Granular Casts None seen (NONE SEEN) Urine Waxy Casts None seen (NONE SEEN) Urine Red Blood Cell Casts None seen (NONE SEEN) Urine White Blood Cell Casts None seen (NONE SEEN) Urine Mucus Present (None Seen) Urine Trichomonas None seen (NONE SEEN) Urine Yeast None (NONE SEEN) Urinalysis Comment None Urine Culture Reflexed Indicated CT Abd / Pelvis Interpretation CONCLUSION: Findings of patient's known renal failure with bilateral renal atrophy. Right iliac fossa renal transplant, and current peritoneal dialysis catheter with mild posterior pelvic ascites. Diffuse subcutaneous edema is noted and nonspecific but could indicate third spacing. Splenomegaly. Diffuse vascular calcifications noted could be related to patients renal status. Radiologist: Toribio Bill D.O. Re-Eval/Medical Decision Med Decision/Clinical Course Med Decision/Clinical Course: 46-year-old with end-stage renal disease and a failed transplant presents with right-sided flank pain and nausea. CAT scan shows no obvious pathology. Urine is positive for leukocytes and this is presumptively a UTI with some upper tract disease. SHe is begun with Keflex twice a day at the recommended dose for dialysis patients. Discharged in stable condition. Source of Hx: Old records Re-Evaluation/Progress : Time of Eval: 23:00 Re-Evaluation/Progress Note: Pt rechecked. Discussed lab results and plan for discharge. Pt understands and agrees with plan. Counseled Regarding: Diagnosis, Lab results, Need for follow-up, When/why to return to ED Discharge & Departure Shift Change Sign-Out Response to Therapy: Improved Primary Impression: Abdominal pain Abdominal location: right upper quadrant Qualified Code: R10.11 - Right upper quadrant pain Additional Impressions: UTI (urinary tract infection) ESRD on dialysis Disposition: Home Discharge Condition All VS Reviewed: Yes Condition: Stable Additional Instructions: Add Keflex one capsule twice daily to your antibiotics. Follow-up with your doctor in the office and at dialysis. Continue your current pain meds. Return if any immediate issues. Referrals: Neelima Dumont (PCP) Philip Attestation Portions of this note were transcribed by Lida Darden. I, Dr. Huizar personally performed the history, physical exam and medical decision-making; I reviewed and confirmed the accuracy of the information in the transcribed note. Signed by: Philip Watts, 09/04/16 and 0361. copies to: Neelima Dumont Christopher W MD Sep 04, 2016 20:59 LIDA DARDEN Sep 04, 2016 21:12
[2016-09-04 21:26] LABS: BASOPHILS % (AUTO) 0.3 % (0-3); EOSINOPHILS % (AUTO) 4.1 % (0-5); MONOCYTES % (AUTO) 7.9 % (4-12); Mean Corpuscular Hemoglobin 27.3 pg (27.0-35.0); Mean Corpuscular Volume 89.2 fL (81-100); NEUTROPHILS % (AUTO) 70.5 % (40-74); Platelet Count 156 bil/L (150-400)
[2016-09-04 21:43] LABS: APPEARANCE,URINE CLEAR (CLEAR,HAZY); COLOR,URINE YELLOW (YELLOW); OCCULT BLOOD,URINE TRACE (NEGATIVE); PH,URINE 8.5 (5.0-8.0)
[2016-09-04 21:43] LABS: Magnesium 1.9 mg/dL (1.6-2.6)
[2016-09-04 21:44] LABS: UROBILINOGEN,URINE NORMAL (NORMAL)
[2016-09-04 22:39] VITALS: BP 185/99; PULSE 87; O2SAT 100
[2016-09-04] MEDS ORDERED: CEPH-512 PO (23:06)
[2016-09-05 00:01] VITALS: BP 165/92; PULSE 85; O2SAT 92
--- NOTE | 2016-09-05 10:07 | DRSVH ---
PROCEDURE: CT KUB ([id number]) INDICATIONS: Right flank and abdominal pain. TECHNIQUE: Noncontrast 5 mm thick sections acquired from the diaphragms to the symphysis. 5 mm thick coronal an d sagittal reformats were then performed. For radiation dose reduction, the following was used: aut omated exposure control, adjustment of mA and/or kV according to patient size. COMPARISON: [facility], CT, CT KUB, 12/03/2015, 1:30. FINDINGS: Image quality: Excellent. Lung bases: Lung bases are clear. Heart size is normal. Urinary system: Severe atrophy of [place] kidneys. There is a transplant kidney in the right iliac fos sa. There is no hydronephrosis. Bladder contracted and not well seen; no calcified bladder stones. There is a peritoneal dialysis catheter. There is a small amount of free fluid in peritoneal cavity. Other solid organs: Liver and spleen are normal in size. Gallbladder is normal. Pancreas is normal in contours. No adrenal nodules. Peritoneum and bowel: Unenhanced bowel loops demonstrate normal wall thickness and caliber. No free fluid or air. Nodes and vessels: The stomach is distended and filled with fluid/debris. There is a large amount of stool in colon. No retroperitoneal or mesenteric adenopathy by size criteria. Aorta and inferior ve na cava are normal in caliber. There is extensive vascular calcification. Abdominal wall: No ventral hernias. Mild diffuse body wall edema. Pelvis: No free pelvic fluid. No inguinal hernias or adenopathy. Bones: Diffusely increased bone density is consistent with renal osteodystrophy. No vertebral body c ompression fractures. IMPRESSION: 1. There is a small amount of free fluid in peritoneal cavity, most likely related to peritoneal dial ysis. Peritonitis, however, is not excluded. 2. Severe atrophy of [place] kidneys. Transplant kidney in the right iliac fossa. No hydronephrosis. 3. Extensive atherosclerosis. 4. There is mild diffuse body wall edema. 5. Large amount of stool in colon. Stomach is distended and filled with fluid/debris. The finding is nonspecific. 6. Renal osteodystrophy. No significant discrepancy with the air intelligence specialist radiology preliminary report. Dictated by: Radha Petty M.D. on 09/05/2016 at 9:53 Approved by: Radha Petty M.D. on 09/05/2016 at 10:05
[2016-11-05] MEDS ORDERED: INSU100V7 SUBQ ×2 (09:59)
== END 2016-09-05 00:02 | disposition home or self-care (01) ==
LOC: SED 19:31
DX: R10.11 Right upper quadrant pain (principal); I13.11 Hypertensive heart and chronic kidney disease without heart failure, with stage 5 chronic kidney disease, or end stage renal disease; E11.22 Type 2 diabetes mellitus with diabetic chronic kidney disease; N18.6 End stage renal disease; N39.0 Urinary tract infection, site not specified; R14.2 Eructation; K21.9 Gastro-esophageal reflux disease without esophagitis; Z99.2 Dependence on renal dialysis; Z94.0 Kidney transplant status; Z88.5 Allergy status to narcotic agent; Z91.041 Radiographic dye allergy status

== ENCOUNTER 2016-09-07 03:09 | Emergency (ER) | payer MEDICARE, MEDICAID ==
[~2016-09-07 03:09] MED LIST changes: +CEPH-512 PO
[2016-09-07 03:11] VITALS: BP 98/61; PULSE 110; RESP 18; O2SAT 100
[2016-09-07] MEDS ORDERED: Dexamethasone 10 mg/mL Inj ONE (03:19)
--- NOTE | 2016-09-07 03:26 | ED.REPORT ---
HPI-General Illness Date of Service Sep 07, 2016 ED Provider: Yohannes Huizar MD Patient is a 26 year old female with a history of ESRD on dialysis, diabetes mellitus, and hypertension with hypertensive heart disease and nephrosclerosis who started taking Nifedipine yesterday presents to the ED after she awoke from sleep with the sensation of swelling in her throat and shortness of breath. The patient reports the feeling that there is a knot in her throat and she states that it is difficult to swallow. The patient is frequently coughing. She is accompanied by her mother, who states that her face appears swollen. She denies swelling in her legs, swelling of her tongue, or rash. Nursing Notes Stated Complaint: SHORT OF BREATH Chief Complaint: General Complaint Nursing Notes Reviewed: Yes Allergies: Coded Allergies: Contrast Media (Verified Allergy, Severe, FULL BODY RASH AND HIVES, 09/07/16 ) tramadol (Verified Allergy, Unknown, Rash, 09/07/16) Scheduled ([Acetaminophen]) 325 MG TABLET 975 MG PO TID ([Novalog]) SQ ACHS FLEX PEN, PRN WITH MEALS Carvedilol (Carvedilol) 25 Mg Tablet 50 MG PO BID Cephalexin (Keflex) 500 Mg Capsule 500 MG PO BID Cholecalciferol (Vitamin D3) (Vitamin D3) 50,000 Unit Capsule 50,000 UNIT PO WEEKLY Given at Dialysis Diltiazem (Cardizem) 30 Mg Tablet 30 MG PO BID Fludrocortisone Acetate (Fludrocortisone Acetate) 0.1 Mg Tablet 0.1 MG PO BID Gabapentin (Gabapentin) 100 Mg Capsule 200 MG PO TID Loratadine (Claritin) 10 Mg Capsule 10 MG PO DAILY Mycophenolate DR (Mycophenolic DR) 180 Mg Tablet 180 MG PO BID Nortriptyline (Nortriptyline) 25 Mg Capsule 25 MG PO HS Omeprazole (Omeprazole) 40 Mg Capsule.dr 40 MG PO DAILY Prednisone (PredniSONE) 5 Mg Tab 5 MG PO DAILY Prednisone (PredniSONE) 20 Mg Tablet 60 MG PO DAILY Pregabalin (Lyrica) 50 Mg Capsule 50 MG PO HS Ranitidine (Zantac) 150 Mg Tablet 150 MG PO BID Sevelamer Carbonate (Renvela) 800 Mg Tablet 2,400 MG PO TIDWM Tacrolimus (Tacrolimus) 1 Mg Capsule 1 MG PO BID Scheduled PRN Ondansetron (Zofran) 4 Mg Tablet 4 MG PO Q4H PRN PRN For Nausea Oxycodone (Roxicodone) 5 Mg Tablet 5-10 MG PO Q4H PRN PRN For Pain for acute ischemic limb pain diphenhydrAMINE HCl (Benadryl) 25 Mg Capsule 25 MG PO QID PRN PRN For Itching General Time Seen by MD: 03:18 Chief Complaint Other (difficulty swallowing, shortness of breath) Hx Obtained From: Patient Arrived By: Walk-in Sudden in Onset?: Yes Onset Occurred: Just prior to arrival Symptom Duration: Since onset Quality: Painful Severity: Current: Moderate Severity: Maximum: Moderate Recent Healthcare: No recent doctor visit, No recent hospitalization Similar Sx Previous: No Past Medical History Past Medical History Notes: Merchandising Stock Associate: Dr. Ra Dickens and Dr. Mckeon Supreme Court Judge: Dr. Jc Past Medical History 1. end-stage renal disease--dialysis dependent with poor clearance and chronic uremia, 2. Hypertension with hypertensive heart disease and hypertensive nephrosclerosis. 3. 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 b. Fistula placement in left upper extremity February 2003, with previous attempted failed right-sided fistula. 4. Prednisone-induced diabetes mellitus, insulin requiring, diagnosed in September 2005. a. Admission in 2008 for DKA. 5. G3, P2, with one miscarriage. 6. GERD. 7. Allergic rhinitis. 8. Acute on chronic anemia 9. dry gangrene of left big toe and right toes, s/p amputation 10. lower extremity vascular disease Past Surgical History Renal transplant, [facility], 2004 Fistula placement, 2008 Placement of peritoneal dialysis catheter. Right foot digital disarticulation 1 through 5 and transmetatarsal incision wound closure Reports: Tubal ligation Family History non-contributory Smoking History Never Smoker Social History Alcohol Use: Denies alcohol use Drug Use: Denies drug use Other Social History: Good social support, Local resident Ambulatory Status Independent Review of Systems Full Review of Systems Ears / Nose / Throat: Reports: Throat pain, Throat swelling, Denies: Tongue swelling Respiratory: Reports: Non-productive cough, Shortness of breath GI: Reports: Dysphagia Musculoskeletal: Denies: Extremity swelling Skin: Denies Rash Complete sys rev & neg: except as marked. Physical Exam Vital Signs Vital Signs Date Time Temp Pulse Resp B/P Pulse Ox O2 Delivery O2 Flow Rate FiO2 09/07/16 05:07 95 18 93/51 100 Room Air 09/07/16 03:49 68 14 100 Room Air 09/07/16 03:11 36.4 110 18 98/61 100 Room Air Initial VS: Reviewed Neurologic: Alert, Oriented, Nonfocal Psychiatric: Mood/affect normal, Behavior normal, Normal thought content General/Constitutional: Awake, Alert Appearance / Presentation: Positive: Obese peritoneal dialysis catheter Head / Eyes: Normocephalic, PERRL facial edema, patient was seen by me several days ago and edema is unchanged from prior examinations ENT: Airway patent, Pharynx NL, No facial swelling mouth does not open wide but throat does not appear swollen Neck: Supple, Non-tender Respiratory / Chest: Breath sounds NL, Breath sounds = bilat, No respiratory distress, No rales, No rhonchi, No wheezing persistent cough, bronchospastic Cardiovascular: Heart rate NL, Regular rhythm, Heart sounds NL Abdomen: Soft, Non-tender Upper Extremities Upper Extremity / MS: No swelling, No edema Lower Extremity / Pelvis / MS: No swelling, No edema Skin: No rash, Warm, Dry Interpretation & Diagnostics Lab Results Interpretation Test 09/07/16 03:24 Hold Purple Top Tube Received (Received) Hold Blue Top Tube Received (Received) Hold [place] Top Tube Received (Received) Hold Soliman Top Tube Received (Received) ECG Interpretation ECG Interpretation: Sinus tachycardia, Rate 104 Time: 03:38 Interpreted by: ED physician Normal ECG Interpretation: No acute ischemic changes X-Ray Chest Interpretation Chest Xray Interpretation: Impression: Cardiomegaly. No acute process. View: Portable Interpretation / Wet Read by: Wet read ED physician Re-Eval/Medical Decision Med Decision/Clinical Course 26-year-old with swelling in her throat subjectively, some mucus production, and cough, attributed to nifedipine just begun. Uncertain if S the cause, but this could be an allergic reaction and she is advised to stop the nifedipine. Contact her doctor today Improved after Decadron and racemic epinephrine neb here. Continue Benadryl when necessary, brief prednisone course, and prompt return if worsening despite treatment Source of Hx: Old records Time of Eval: 04:51 Patient Status: Condition improved Re-Evaluation/Progress Note: Rechecked the patient, who is improved. She no longer reports the sensation in her throat but states that she has pain. Patient understands and agrees with the plan to be discharged home. Discharge instructions and follow-up discussed. All questions were addressed. Return to the ED warnings given. Counseled Regarding: Diagnosis, Lab results, Need for follow-up, When/why to return to ED Discharge & Departure Primary Impression: Urticaria Additional Impressions: ESRD on dialysis Angioedema Disposition: Home Discharge Condition All VS Reviewed: Yes Condition: Stable Patient Instructions: Urticaria (ED) Additional Instructions: I do not know for sure, but suspect your problem came from your nifedipine. Stop your nifedipine and contact your doctor this morning. Prednisone three tabs daily for three days. Benadryl four times daily if needed for itching or swelling. Follow-up with your doctor in the office as soon as possible. Return if any difficulties with breathing or swallowing or new symptoms develop. Continue your other meds for now. Referrals: Neelima Dumont (PCP) Philip Attestation Portions of this note were transcribed by Rohini Pina. I, Dr. Huizar personally performed the history, physical exam and medical decision-making; I reviewed and confirmed the accuracy of the information in the transcribed note. Signed by: Philip Estrada, 09/07/2016 [id number] copies to: Neelima Dumont Christopher W MD Sep 07, 2016 03:26 Rohini Pina Sep 07, 2016 03:32
[2016-09-07] MEDS ORDERED: Famotidine Inj 20 MG in IV Premix 1 EACH IV ONE (03:30)
[2016-09-07] MEDS ORDERED: Epinephrine Racemic 2.25% 0.5 mL Inhalation Solution NEB ONE (03:30)
[2016-09-07 03:49] VITALS: PULSE 68; RESP 14; O2SAT 100
[2016-09-07] MEDS ORDERED: PRE20 PO (04:56)
[2016-09-07] MEDS ORDERED: DIPH25CA6 PO (04:56)
[2016-09-07 05:07] VITALS: BP 93/51; PULSE 95; RESP 18; O2SAT 100
--- NOTE | 2016-09-07 09:06 | DRSVH ---
PROCEDURE: X-RAY CHEST ONE VIEW, PORTABLE ([id number]) INDICATIONS: SHORT OF BREATH TECHNIQUE: One view of the chest was acquired. COMPARISON: [facility], CR, XR CHEST 1VW (PORTABLE), 08/03/2016, 21:13. FINDINGS: Surgical changes and devices: None. Lungs and pleura: No pleural effusions or pneumothorax. Lungs are clear. Mediastinum: Mediastinal contours appear normal. Heart size is normal. Bones and chest wall: No suspicious bony lesions. Overlying soft tissues appear unremarkable. IMPRESSION: No acute cardiopulmonary disease. Dictated by: Kemal Siegel [facility] Interpreted: Zoey Mai MD on 09/07/2016 at 9:05 Transcribed by: RAKESH on 09/07/2016 at 9:05 Approved by: Zoey Mai MD, PhD on 09/07/2016 at 16:45
[2016-11-05] MEDS ORDERED: INSU100V7 SUBQ ×2 (09:59)
== END 2016-09-07 05:09 | disposition home or self-care (01) ==
LOC: SED 03:09
DX: T78.3XXA Angioneurotic edema, initial encounter (principal); I12.0 Hypertensive chronic kidney disease with stage 5 chronic kidney disease or end stage renal disease; N18.6 End stage renal disease; E11.22 Type 2 diabetes mellitus with diabetic chronic kidney disease; K21.9 Gastro-esophageal reflux disease without esophagitis; Z99.2 Dependence on renal dialysis; Z88.5 Allergy status to narcotic agent; Z91.041 Radiographic dye allergy status; Z79.4 Long term (current) use of insulin
CPT/HCPCS: 71010; 82948; 93005; 94664; 96374; 96375; 99285; J1100; J1200; J3490

== ENCOUNTER 2016-09-09 19:52 | Inpatient (IN) | payer MEDICARE, MEDICAID ==
[~2016-09-09] VITALS: Ht 160 cm; Wt 56.8 kg
[~2016-09-09 19:52] MED LIST changes: +DIPH25CA6 PO; +PRE20 PO
[2016-09-09 20:00] VITALS: BP 209/109; PULSE 89; RESP 18; O2SAT 100
--- NOTE | 2016-09-09 20:13 | ED.REPORT ---
HPI-General Illness Date of Service Sep 09, 2016 ED Provider: Dr. Lex Grewal M.D. A 26 year old female with a medical history including hypertension, diabetes, GERD, lower extremity vascular disease, membranoproliferative glomerulonephritis , and ESRD on dialysis presents to the ED with generalized myalgias onset yesterday. Associated symptoms include hypertension (209/109 in ED), headache, belching, vomiting, fever (high of 100.3), abdominal pain, and acid reflux flares. Her last dialysis was two days ago and she is due for another tomorrow. The patient denies cough or constipation. She was in the ED two days ago with an allergic reaction to Nifedipine. Her medications include 5mg Prednisone, Carvedilol (50mg twice daily), and Felodipine (10mg once daily, started recently ). Nursing Notes Stated Complaint: HIGH BLOOD PRESSURE,ABD PAIN,NAUSEA Chief Complaint: General Complaint Nursing Notes Reviewed: Yes Allergies: Coded Allergies: Contrast Media (Verified Allergy, Severe, FULL BODY RASH AND HIVES, 09/07/16 ) tramadol (Verified Allergy, Unknown, Rash, 09/07/16) Scheduled ([Acetaminophen]) 325 MG TABLET 975 MG PO TID ([Novalog]) SQ ACHS FLEX PEN, PRN WITH MEALS Carvedilol (Carvedilol) 25 Mg Tablet 50 MG PO BID Cephalexin (Keflex) 500 Mg Capsule 500 MG PO BID Cholecalciferol (Vitamin D3) (Vitamin D3) 50,000 Unit Capsule 50,000 UNIT PO WEEKLY Given at Dialysis Diltiazem (Cardizem) 30 Mg Tablet 30 MG PO BID Fludrocortisone Acetate (Fludrocortisone Acetate) 0.1 Mg Tablet 0.1 MG PO BID Gabapentin (Gabapentin) 100 Mg Capsule 200 MG PO TID Loratadine (Claritin) 10 Mg Capsule 10 MG PO DAILY Mycophenolate DR (Mycophenolic DR) 180 Mg Tablet 180 MG PO BID Nortriptyline (Nortriptyline) 25 Mg Capsule 25 MG PO HS Omeprazole (Omeprazole) 40 Mg Capsule.dr 40 MG PO DAILY Prednisone (PredniSONE) 5 Mg Tab 5 MG PO DAILY Prednisone (PredniSONE) 20 Mg Tablet 60 MG PO DAILY Pregabalin (Lyrica) 50 Mg Capsule 50 MG PO HS Ranitidine (Zantac) 150 Mg Tablet 150 MG PO BID Sevelamer Carbonate (Renvela) 800 Mg Tablet 2,400 MG PO TIDWM Tacrolimus (Tacrolimus) 1 Mg Capsule 1 MG PO BID Scheduled PRN Ondansetron (Zofran) 4 Mg Tablet 4 MG PO Q4H PRN PRN For Nausea Oxycodone (Roxicodone) 5 Mg Tablet 5-10 MG PO Q4H PRN PRN For Pain for acute ischemic limb pain diphenhydrAMINE HCl (Benadryl) 25 Mg Capsule 25 MG PO QID PRN PRN For Itching General Time Seen by MD: 20:12 Chief Complaint Other (Generalized Myalgias) Hx Obtained From: Patient Arrived By: Walk-in Sudden in Onset?: No Onset Occurred: Yesterday Symptom Duration: Since onset Location: : Abdomen: Back: Head Quality: Painful Severity: Current: Moderate Severity: Maximum: Moderate Associated with: Reports: Abdominal pain, Fever, Nausea, Vomiting, Denies: Cough Pertinent Negative: Relieved by nothing Context Related History: Reports Diabetes mellitus, Reports GERD Recent Healthcare: Recent doctor visit Similar Sx Previous: Yes Past Medical History Past Medical History Notes: Salesperson Corsets: Dr. Ra Dickens and Dr. Mckeon Fabrication Machine Operator: Dr. Jc Past Medical History 1. End-stage renal disease--dialysis dependent with poor clearance and chronic uremia, 2. Hypertension with hypertensive heart disease and hypertensive nephrosclerosis. 3. 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 b. Fistula placement in left upper extremity February 2003, with previous attempted failed right-sided fistula. 4. Prednisone-induced diabetes mellitus, insulin requiring, diagnosed in September 2005. a. Admission in 2008 for DKA. 5. G3, P2, with one miscarriage. 6. GERD. 7. Allergic rhinitis. 8. Acute on chronic anemia 9. 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 Lower extremity vascular disease Past Surgical History Renal transplant, [facility], 2004 Fistula placement, 2009 Placement of peritoneal dialysis catheter. Right foot digital disarticulation 1 through 5 and transmetatarsal incision wound closure Reports: Tubal ligation Family History non-contributory Smoking History Never Smoker Social History Alcohol Use: Denies alcohol use Drug Use: Denies drug use Other Social History: Good social support, Local resident Ambulatory Status Independent Review of Systems + Hypertension (209/109 in ED), acid reflux flares Full Review of Systems Constitutional: Reports: Fever (High of 100.3) Respiratory: Denies: Non-productive cough GI: Reports: Abdominal pain, Belching, Vomiting, Denies: Constipation Musculoskeletal: Reports: Myalgia (Generalized) Neurologic: Reports: Headache Complete sys rev & neg: except as marked. Physical Exam Vital Signs Vital Signs Date Time Temp Pulse Resp B/P Pulse Ox O2 Delivery O2 Flow Rate FiO2 09/09/16 20:00 36.6 89 18 209/109 100 Initial VS: Reviewed Head / Eyes: Atraumatic, Normocephalic ENT: Conjunctiva normal, No scleral icterus Neck: Supple, Full range of motion Respiratory: Breath sounds normal, Clear to auscultation, No respiratory distress Skin: Warm, Dry, No cyanosis Neurologic: Alert, Oriented, Nonfocal Psychiatric: Mood/affect normal, Behavior normal, Normal thought content General/Constitutional: Awake, Alert Respiratory / Chest: Breath sounds NL, Breath sounds = bilat, No respiratory distress Cardiovascular: Regular rhythm, Heart sounds NL Heart Rate / Rhythm: Positive: Tachycardia Abdomen: Soft, BS normoactive Tenderness/Guarding/Rebound: Positive: Tender diffuse (Mild) Interpretation & Diagnostics Blood work from September 04, [address] KUB NO CONTRAST September 04, 2016 IMPRESSION: 1. There is a small amount of free fluid in peritoneal cavity, most likely related to peritoneal dialysis. Peritonitis, however, is not excluded. 2. Severe atrophy of [place] kidneys. Transplant kidney in the right iliac fossa. No hydronephrosis. 3. Extensive atherosclerosis. 4. There is mild diffuse body wall edema. 5. Large amount of stool in colon. Stomach is distended and filled with fluid/ debris. The finding is nonspecific. 6. Renal osteodystrophy. No significant discrepancy with the film processing shift supervisor radiology preliminary report. Dictated by: Radha Petty M.D. on 09/05/2016 at 9:53 Normal chest x-ray on September 07, 2016 Lab Results Interpretation Result Diagram: 09/09/16214109/09/162141 Test 09/09/16 21:42 White Blood Count 7.2th/mm3 (3.8-10.1) Red Blood Count 3.95mil/mm3 (3.90-5.20) Hemoglobin 11.0g/dL (12.0-15.6) Hematocrit 34.8% (35.0-46.0) Mean Corpuscular Volume 88.1fL (81-100) Mean Corpuscular Hemoglobin 27.8pg (27.0-35.0) Mean Corpuscular Hemoglobin Concent 31.6% (32.0-37.0) Red Cell Distribution Width 17.1% (12.3-15.4) Platelet Count 98bil/L (150-400) Neutrophils (%) (Auto) 83.2% (40-74) Lymphocytes (%) (Auto) 8.7% (14-46) Monocytes (%) (Auto) 5.6% (4-12) Eosinophils (%) (Auto) 1.4% (0-5) Basophils (%) (Auto) 0.1% (0-3) Sodium Level 138mEq/L (134-144) Potassium Level 6.4mEq/L (3.5-5.2) Chloride Level 95mEq/L (97-108) Carbon Dioxide Level 24mmol/L (18-29) Blood Urea Nitrogen 75mg/dL (6-20) Creatinine 6.09mg/dL (0.57-1.00) Estimat Glomerular Filtration Rate 12mL/min (>59) Glucose Level 302mg/dL (60-99) Calcium Level 8.7mg/dL (8.5-10.1) Total Bilirubin 0.3mg/dL (0.0-1.2) Aspartate Amino Transf (AST/SGOT) 8U/L (0-50) Alanine Aminotransferase (ALT/SGPT) 6U/L (0-32) Alkaline Phosphatase 89U/L (25-150) Total Protein 6.2g/dL (6.4-8.4) Albumin 3.7g/dL (3.4-5.0) Lipase 81U/L (13-60) ECG Interpretation Time: 23:21 Interpreted by: ED physician Normal ECG Interpretation: Normal ECG w/ rate of... (86) Re-Eval/Medical Decision Med Decision/Clinical Course 197/96 now @ 22:46 Source of Hx: Old records Time of Eval: 22:43 Patient Status: Condition improved Re-Evaluation/Progress Note: Patient rechecked. Time of Eval: 23:17 Patient Status: Condition improved Re-Evaluation/Progress Note: Discussed with patient lab results, diagnosis, and plan for admit. Patient agrees with plan for care and all questions were addressed. Consultation #1: Referral / Consult Name: Elodia Mckeon MD Consulted With: Nephrology Call Returned at: 23:15 Sex Crimes Detective: Agrees with eval, Agrees with plan Note: Recommends admit. Consultation #2: Referral / Consult Name: Ra Dickens DO Consulted With: Nephrology Call Returned at: 23:29 Sex Crimes Detective: Will see patient (Tomorrow), Agrees with eval, Agrees with plan Consultation #3: Referral / Consult Name: Cesilia Johnson DO Consulted With: Hospitalist Call Returned at: 23:56 Sex Crimes Detective: Agrees with eval, Agrees with plan, Accepts admit Counseled Regarding: Diagnosis, Lab results, Need for admission Discharge & Departure Primary Impression: Hyperkalemia Additional Impressions: Abdominal pain Abdominal location: generalized Qualified Code: R10.84 - Generalized abdominal pain ESRD on dialysis Fever Fever type: unspecified Qualified Code: R50.9 - Fever, unspecified Disposition: ADMITTED TO HOSPITAL Discharge Condition All VS Reviewed: Yes Condition: Stable Referrals: Neelima Dumont (PCP) Elodia Mckeon MD Attestation Portions of this note were transcribed by Cristina Bennett. I, Dr. Grewal, personally performed the history, physical exam, and medical decision-making; I reviewed and confirmed the accuracy of the information in the transcribed note. Signed by: Philip Grijalva, 09/09/2016, 23:45 copies to: Neelima Dumont; Elodia Mckeon MD, Kirk H MD Sep 09, 2016 20:13 CRISTINA BENNETT Sep 09, 2016 20:41
[2016-09-09] MEDS ORDERED: Ondansetron 2 mg/mL 2 mL Inj IVPUSH PRN ×2 (20:35→23:55)
[2016-09-09] MEDS ORDERED: Pantoprazole 4 mg/mL 10 mL Inj IVPUSH ONE (20:35)
[2016-09-09] MEDS: HYDROmorphone 1 mg/mL Inj IVPUSH PRN ×2 (21:44→21:45)
[2016-09-09 21:51] LABS: BASOPHILS % (AUTO) 0.1 % (0-3); EOSINOPHILS % (AUTO) 1.4 % (0-5); MONOCYTES % (AUTO) 5.6 % (4-12); Mean Corpuscular Hemoglobin 27.8 pg (27.0-35.0); Mean Corpuscular Volume 88.1 fL (81-100); NEUTROPHILS % (AUTO) 83.2 % (40-74); Platelet Count 98 bil/L (150-400)
[2016-09-09 22:05] VITALS: BP 178/92; PULSE 88; RESP 17; O2SAT 97
[2016-09-09 23:20] VITALS: BP 182/92; PULSE 88; RESP 18; O2SAT 99
[2016-09-09] MEDS ORDERED: Calcium GLUCOnate 10% (Gm) 1 Gm/10 mL Inj IVPUSH PRN (23:20)
[2016-09-09] MEDS ORDERED: Polyethylene Glycol (PEG) 17 Gm Powder PO PRN (23:55)
[2016-09-10] VITALS (13 sets, daily range): BP systolic 136–206; BP diastolic 67–118; PULSE 84–105; RESP 18–20; O2SAT 96–98
[2016-09-10] MEDS ORDERED: HYDROmorphone 1 mg/mL Inj IVPUSH ONE (00:45)
[2016-09-10] MEDS ORDERED: Labetalol 5 mg/mL 4 mL Inj IVPUSH ONE ×4 (01:40→19:55)
[2016-09-10] MEDS ORDERED: Insulin Human REGular 300 Unit/3 mL Inj SUBQ ONE (01:40)
[2016-09-10] MEDS ORDERED: Glucose 40% Oral Gel 15 Gm Tube PO PRN ×2 (01:45→02:25)
[2016-09-10] MEDS ORDERED: Alum-Mag Hydrox-Simeth 30 mL Suspension PO PRN (01:55)
[2016-09-10] MEDS ORDERED: Polyethylene Glycol (PEG) 17 Gm Powder PO PRN (01:55)
[2016-09-10] MEDS: Labetalol 5 mg/mL 4 mL Inj IVPUSH ONE ×2 (02:07→02:08)
[2016-09-10] MEDS: HYDROcodone-APAP 5-325 mg Tablet PO PRN ×2 (02:34→18:26)
--- NOTE | 2016-09-10 02:36 | PCM.HPMED ---
Subjective Date of Service Sep 10, 2016 Primary Provider: Admitting Physician: Cesilia Johnson DO Primary Care Physician: Neelima Dumont Attending Physician: Cesilia Johnson DO Chief Complaint: Abdominal pain, elevated blood pressure History of Present Illness: Patient is a 26-year-old female with hypertension, diabetes, GERD, and ESRD secondary to membranoproliferative glomerulonephritis presenting with generalized myalgias, fever and abdominal pain. The patient reports elevated blood pressure at home despite being on newly prescribed felodipine. She is followed by corporate librarian, Dr. Mckeon, who recently started the patient on nifedipine on 09/06/2016; however, she had an allergic reaction and this was subsequently switched to felodipine. Patient visited the ED on 09/07/2016 for urticaria and found to be allergic to the nifedipine. She was discharged from the ED with prescription for prednisone 60mg x 3 days. Patient also reports abdominal pain with belching, which has been an ongoing issue over the past two months. Patient states she has visited [facility] ED on a couple of occasions for the issue. Patient says the pain is in her upper quadrants and is intermittent. Pain medication seem to briefly help otherwise she hasn't found anything to help with the pain. She reportedly has an appointment with GI in November for evaluation of this abdominal pain. Patient has also been having acid reflux issues despite being on omeprazole and ranitidine. She reports having an episode of emesis yesterday. Patient also endorses myalgias of two days and a fever of 100.3F. Patient otherwise denies shortness of breath, chest pain, diarrhea, constipation, hematochezia, dysuria, hematemesis, cough, rhinorrhea. Patient says her elevated blood pressure prompted her to be brought in by her mother for further evaluation. In the ED, vitals: temp 36.6, HR 89, RR 18 satting 100% on room air, BP 209/ 109. Notable labs: platelets 47472, K 6.4, BUN 75, creatinine 6.09, glucose 302. EKG in the ED shows sinus rhythm with HR 86. Review of Systems: A comprehensive review of systems was conducted with the patient and found to be negative except as above in the History of Present Illness. Allergies Coded Allergies: Contrast Media (Verified Allergy, Severe, FULL BODY RASH AND HIVES, 09/07/16 ) nifedipine (Verified Allergy, Severe, Anaphylaxis, 09/10/16) "Throat closing up; couldn't breathe tramadol (Verified Allergy, Unknown, Rash, 09/07/16) Home Medications Zofran 4mg PRN Mycophenolate 180mg BID Prograf 1mg BID Prednisone 5mg daily Carvedilol 50mg BID Nortriptyline 25mg BID Ranitidine 150mg BID Omeprazole 40mg daily Loratadine 10mg daily Renvela 800mg TIDAC Felodipine 10mg daily . PMH 1. End-stage renal disease--dialysis dependent with poor clearance and chronic uremia 2. Hypertension with hypertensive heart disease and hypertensive nephrosclerosis. 3. 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 b. Fistula placement in left upper extremity February 2003, with previous attempted failed right-sided fistula. 4. Prednisone-induced diabetes mellitus, insulin requiring, diagnosed in September 2005. a. Admission in 2008 for DKA. 5. G3, P2, with one miscarriage. 6. GERD. 7. Allergic rhinitis. 8. Acute on chronic anemia 9. Gangrene of left big toe s/p amputation 10. Lower extremity vascular disease . Surgical History Renal transplant, [facility], 2004 Fistula placement, 2008 Placement of peritoneal dialysis catheter Bilateral toes amputations Tubal ligation Family History Mother alive with DM2, dyslipidemia Father unknown . Social History Hx Alcohol Use: No Hx Substance Use: No Hx Tobacco Use: No Smoking Status: Never Smoker Living Arrangement: with Family Exam Vital Signs Vital Sign - Last Date Time Temp Pulse Resp B/P Pulse Ox O2 Delivery O2 Flow Rate FiO2 09/10/16 01:12 36.9 84 18 188/96 98 Room Air Exam General: No acute distress, well-developed, well-nourished, appropriately interactive HEENT: Normocephalic, atraumatic. External ears without defect. Pupils equal, round, and reactive to light. Anicteric sclerae, moist conjunctivae, and no lid lag. Oropharynx free of erythema and cobble stoning with moist mucosa. Neck: Supple. Palpable submandibular nodes. No appreciable thyromegaly. Cardiovascular: Regular rate and rhythm with no murmurs, rubs, or gallops appreciated Pulmonary: Clear to auscultation bilaterally with no crackles, wheezes, or rhonchi. Normal respiratory effort with no use of accessory muscles. Abdomen: Bowel tones present. Soft, nondistended. Mild tenderness to palpation in upper quadrants. Extremities: Amputated toes bilaterally with healing incisions, though with small open wound at site of amputated 5th toe. The right side with open wounds at location of 1st and 5th toes. Left upper AV fistula. Skin: Normal temperature, turgor, and texture; no rash, ulcers, or subcutaneous nodules appreciated. Healing skin ulcer superior to left orbit. Neurological: Cranial nerves grossly intact. Psychiatric: Normal mood and affect. Alert and oriented to person, place, and time. Lab and Diagnostics Result Diagram: 09/09/16214109/09/162141 Assessment & Plan Patient is a 26-year-old female with hypertension, diabetes, GERD, and ESRD secondary to membranoproliferative glomerulonephritis presenting with generalized myalgias, fever and abdominal pain, and admitted for hypertension and hyperkalemia: 1. Hypertensive urgency, present on admission. Active -BP 209/109 -Continue home antihypertensives -Labetalol 10mg IV one time -Continue to monitor BP 2. Acute on chronic abdominal pain. Present on admission. Active -Patient has been to [facility] ED on 09/02/2016 and 09/05/2016 with c/o abdominal pain -CT KUB on 09/04/2016 without obvious pathology but did show stool filled colon -Continue with supportive care -Tylenol for pain. Breakthrough pain with hydrocodone and morphine -Zofran PRN 3. Acute hyperkalemia. Present on admission. Active -K 6.4 on admit. No peaked T-waves on EKG -Kayexalate, regular insulin. Repeat CMP in AM -Dialysis in am, AM team to call nephrology, contacted by ED prior to admission 4. Thrombocytopenia, acute. Present on admission. Active -Uncertain etiology -Continue to follow with CBC 5. s/p bilateral toes amputation. Present on admission -Open wounds on feet bilaterally, looks to be healing -Wound care consult 6. End stage renal disease on hemodialysis, present on admission -Regular dialysis on Mon, Wed, Fri -Nephrology to see patient 7. Insulin-dependent type II diabetes. Present on admission -HbA1c 5.6% in 07/2016 -Glucose 302 on admit. Note, patient is in the midst of prednisone burst 60mg daily -Bedside blood glucose checks -Insulin Lispro low correction Patient is admitted under observation status with expected length of stay less than 2 midnights due to risk of adverse event, and complexity of treatment plan. . VTE Prophylaxis: Sub-Q Heparin (Unfractionated) Resuscitation Status: CPR: Attempt Resuscitation Attending Statement The patient was seen and examined together with house staff on 09/10/2016 and I agree with the history, exam and plan as outlined in the note above. Shade Christine DO Sep 10, 2016 01:40 Cesilia Johnson DO Sep 10, 2016 05:04
--- NOTE | 2016-09-10 04:37 | NUR ---
admit note Pt is admitted to room 3021 from ED for hyperkalemia and fever of unknown etiology. Pt is A&Ox4. c/o 9/10 sharp abdominal pain relieved by 2 tabs of [place] and 1mg Morphine. Pt has open wounds to right toe incision with yellow drainage. applied dressing as what pt has been doing at home; xeroform dressing covered with kerlix bandage. tip of left foot has open wounds but no drainage noted. covered with telfa and kerlix. pt has a scab on sacrum; she stated that "they" said it's not pressure ulcer but she thinks it is. no redness noted around the scab on her sacrum. own wheelchair in the room. JONAS fistula (+) for thrills and bruits. 10mg Labetalol given for BP 177/95, went up to 180s/104. Rec'd an order for another dose of 10mg Labetalol-given. will closely monitor pt's BP. 5units of Regular insulin given for 229 BG; went down to 178. Kayexalate given for hyperkalemia-no BM yet. pt is oriented to room and plan of care; she verbalized understanding. Addendum: 09/10/16 at 0447 by HIEU NEAL RN arrived in the room around 2AM.
[2016-09-10 07:16] LABS: BASOPHILS % (AUTO) 0.2 % (0-3); MONOCYTES % (AUTO) 7.7 % (4-12); Mean Corpuscular Hemoglobin 27.6 pg (27.0-35.0); Mean Corpuscular Volume 89.2 fL (81-100); NEUTROPHILS % (AUTO) 74.3 % (40-74); Platelet Count 102 bil/L (150-400)
[2016-09-10] MEDS: Insulin LISPRO 300 Unit/3 mL Inj SUBQ SCH ×5 (08:00→22:33)
[2016-09-10] MEDS: Heparin 5,000 Unit/mL Inj SUBQ SCH ×2 (08:30→21:09)
[2016-09-10] MEDS: PT Own Med->Oral Medication PO SCH ×3 (08:30→20:30)
[2016-09-10] MEDS: Pantoprazole 40 mg ER24 Tablet PO SCH (09:21)
--- NOTE | 2016-09-10 10:22 | NUR ---
[place] in [facility] [place] by bed to room 244-2. Report received by Xiomy Estrada RN. registered dietitian at bedside. Addendum: 09/10/16 at 1829 by EVERARDO DUTTA RN Transported back to [facility] RN. Report given by GILMAR Cardenas RN
--- NOTE | 2016-09-10 14:55 | NUR ---
Social Work-attempted initial assessment: Data:EMR Reviewed. Pt is on day 1 of hospitalization for hyperkalemia per H&P. Pt's insurance is [facility] and [facility] and PCP is HARSHA Butcher. EMR Reviewed. SW attempted to see pt, but pt currently out of room. Pt resides at home with her and family and has DAVID caregivers. SW to follow up with pt to discuss discharge planning. SW will continue to follow. Assessment:Pt who is independent at baseline. Plan:SW to follow up again tomorrow to complete assessment. SW will continue to follow. LORENA Gimenez
--- NOTE | 2016-09-10 15:09 | NUR ---
Dialysis note: 4 hr tx, Net UF 3700. Graft accessed with 15 g. needles without difficulty. QB 400. Pt ate lunch, BG 126 at 1237. site clamped x 10 min and secured with SS, gauze. Pt returned to floor stable. Please see DTR for complete record of VS.
--- NOTE | 2016-09-10 15:27 | PCM.CHPMED ---
Subjective Date of Service: Sep 10, 2016 Primary Physician: Admitting Physician: Cesilia Johnson DO Primary Care Physician: Neelima Dumont Attending Physician: Cesilia Johnson DO Chief Complaint: Chief Complaint: Abdominal pain and high blood pressure. History of Present Illness: The patient is a 27-year-old female who has a history of end-stage renal disease secondary to membranoproliferative glomerulonephritis, DM-2, s/p kidney transplant now with graft failure who presented to hospital due to abdominal pain and uncontrolled BP. Renal service was consulted to continue hemodialysis while being hospitalized. She is a patient of Dr. CAROLINA Mckeon. She used to be on PD but switched to HD due to poor clearance. She is dialyzed every Saturday, Saturday and Saturday. She came to the hospital this time with the complaint of epigastric pain with belching. She has felt weak and with some fever, temp in ED was 36.6. Pt reports having nausea and vomiting yesterday. She has no chest pain, shortness of breath, palpitation, diarrhea, poor appetite. She is now on dialysis. BP was elevated, BP 198/117. She was recently prescribed nifedipine but developed allergic reaction. She came to the ED on . Prednisone and benadryl were given. PAST MEDICAL HISTORY: Significant for membranoproliferative GN, status post failed renal transplant, DM-2, GERD, chronic anemia hypertension with hypertensive heart disease and hypertensive nephrosclerosis, and severe peripheral vascular disease, renal osteodystrophy. PAST SURGICAL HISTORY: Significant for an AV fistula placement, tubal ligation, peritoneal catheter placement, and a renal transplant. Bilateral transmetarsal amputation. SOCIAL HISTORY: She denies use of alcohol, tobacco, or illicit drugs. FAMILY HISTORY: Remarkable only for diabetes. ALLERGIES: NIFEDIPINE, CONTRAST MEDIA AND TRAMADOL. REVIEW OF SYSTEMS: 14-point ROS performed. MEDICATIONS: reviewed. PMH Bedside Blood Glucose: 126 Allergies: Coded Allergies: Contrast Media (Verified Allergy, Severe, FULL BODY RASH AND HIVES, 09/07/16 ) nifedipine (Verified Allergy, Severe, Anaphylaxis, 09/10/16) "Throat closing up; couldn't breathe tramadol (Verified Allergy, Unknown, Rash, 09/07/16) Social History Hx Alcohol Use: NoHx Substance Use: NoHx Tobacco Use: No Smoking Status: Never Smoker Living Arrangement: with Family Exam Vital Signs Vital Sign - Last Date Time Temp Pulse Resp B/P Pulse Ox O2 Delivery O2 Flow Rate FiO2 09/10/16 11:30 87 09/10/16 05:58 36.7 20 180/97 97 Room Air General: Alert, Oriented X3, Cooperative Head: Normal Eyes: PERRLA, EOMI, Scleral Anicteric Ears: Canals Mouth: Lips, Mouth Normal, Mucous Membr Moist/[place] Neck: Supple, Tenderness Chest & Lungs: Chest Wall Normal, Clear to auscultation & percussion, No adventitious breath sounds Cardiovascular: Exam Unremarkable, Regular Rate/Rhythm, Normal S1, Normal S2, No Murmurs/Rubs/Gallops Abdomen: Tender, Non-tender, Non-distended, No masses, No hepatosplenomegaly Musculoskeletal: Unremarkable, Normal Range of Motion Extremities: Edema (left arm swelling, left AVF good thrill and bruit. ) Lab and Diagnostics Result Diagram: 09/10/1664409/10/16644 Assessment & Plan Assessment 1. ESRD on HD Q MWF. - with hyperkalemia. 2. Uncontrolled HTN with hypertensive nephrosclerosis. 3. Acute on chronic epigastric pain with underlying disease of GERD. 4. Membranoproliferative GN, status post failed renal transplant, 5. DM-2 6. Severe peripheral vascular disease s/p bilateral TMA 7. Renal osteodystrophy. plan: Continue coreg, add losartan and hydralazine. increase fluid removal during HD. Thank you for consultation. We will monitor along with you. Problems: VTE Prophylaxis: Sub-Q Heparin (Unfractionated) Resuscitation Status: CPR: Attempt Resuscitation Trent Patrick MD Sep 10, 2016 15:11
--- NOTE | 2016-09-10 15:29 | NUR ---
Wound Care [facility] Patient seen for wound care evaluation to bilateral feet at transmetatarsal amputation site. Right foot with two open areas, medial and lateral. Medial wound measures approx 2.5cmL x 2cmL x 0.2cmD with 100% yellow slough. Wound edges macerated. Wound with minimal yellow serous drainage. Lateral open area measures approx 3.5cmW x 1cmL x 0.2cmD with 100% yellow slough and min yellow serous drainage. Cleaned both with NS. Patted dry. Applied adaptic, 4x4, and 3" conform. Secured with paper tape. Left foot healed with small scab vs. dried drainage to inner fold of scar laterally. Cleaned with NS, applied adaptic, 4x4 and 3" conform. Secured with paper tape. Patient reports some tenderness to medial aspect of scar. No redness or fluctuance noted. Will continue to monitor. Patient also noted with healed pressure ulcer to coccyx. Patient states was scabbed over recently, now resolved. Wound care to follow up in 24-48 hours for right foot wound care. Nursing to re-wrap left foot q48 hours and as needed for soiling.
[2016-09-10] MEDS: predniSONE 5 mg Tablet PO SCH (15:58)
[2016-09-10] MEDS ORDERED: MYCO180T3 PO (16:13)
[2016-09-10] MEDS ORDERED: FELO10TA3 PO (16:13)
[2016-09-10] MEDS ORDERED: ONDA-53 PO (16:21)
[2016-09-10] MEDS ORDERED: INSU100I SC (16:21)
--- NOTE | 2016-09-10 18:35 | NUR ---
Case Management: FRANCO explained to patient at 1730, all questions answered. Signed original placed in chart, patient given a copy. Charo Galaviz RN Addendum: 09/10/16 at 2135 by CHARO GALAVIZ CM Case Management: COS to Inpatient (received dialysis today). IMM provided and explained to patient at 2130. Signed original in the chart, copy given to the patient. Charo Galaviz RN
--- NOTE | 2016-09-10 19:21 | NUR ---
Hypertension BP upon returning from dialysis 213/121 with HR 89. Provider notified. New orders for Labetalol IV 10mg, oral meds ordered by Nephrology and admin daily meds. Meds admin as they became available, awaiting pharmacy delivery at this time. Tele monitoring in place at this time with BP checks Q4H.
--- NOTE | 2016-09-10 19:51 | PCM.PNMED ---
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 Patient had dialysis this morning which is her normal dialysis day, she also complains of worsening abdominal pain that has been constant for the last 4-5 days it is along her lower rib line on her right side. She says it feels sharp and all at the same time, it gets worse in the afternoon she also feels like she continues to have acid reflux symptoms despite being on multiple medications. No headache, shortness of breath, chest pain, or dizziness. Exam Vital Signs Vital Sign - Last Date Time Temp Pulse Resp B/P Pulse Ox O2 Delivery O2 Flow Rate FiO2 09/10/16 05:58 36.7 88 20 180/97 97 Room Air Exam General: No acute distress, well-developed, well-nourished, appropriately interactive HEENT: Normocephalic, atraumatic. External ears without defect. Neck: Supple Cardiovascular: Regular rate and rhythm with no murmurs, rubs, or gallops appreciated Pulmonary: Clear to auscultation bilaterally with no crackles, wheezes, or rhonchi. Normal respiratory effort with no use of accessory muscles. Abdomen: Bowel tones present. Soft, nondistended. Tender in right upper quadrant , negative Schmidt's sign, voluntary guarding. No hepatosplenomegaly or masses appreciated. Extremities: No clubbing, cyanosis, edema, or lymphadenopathy appreciated. Toes amputated bilaterally under dressings Skin: Normal temperature, turgor, and texture; multiple hyperpigmented nodules appreciated on bilateral lower extremities. Neurological: Cranial nerves grossly intact. Normal muscle strength, tone, and bulk. No known gait impairment. Psychiatric: Normal mood and affect. Alert and oriented to person, place, and time. 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 Hypertensive urgency, present on admission. Active -BP 209/109 -Continue home antihypertensives -Labetalol 10mg IV given multiple times -Continue to monitor BP -Losartan and hydralazine added per nephrology consult. 2. Acute on chronic abdominal pain. Present on admission. Active -Patient has been to [facility] ED on 09/02/2016 and 09/05/2016 with c/o abdominal pain -CT KUB on 09/04/2016 without obvious pathology but did show stool filled colon -Continue with supportive care -Tylenol for pain. Breakthrough pain with hydrocodone and morphine -Zofran PRN 3. Acute hyperkalemia. Present on admission. Active -K 6.4 on admit. A.m. recheck was 5.8 No peaked T-waves on EKG -Kayexalate, regular insulin. Repeat CMP again in AM -Dialysis performed today 4. Thrombocytopenia, acute. Present on admission. Active -Uncertain etiology -Continue to follow with CBC 5. s/p bilateral toes amputation. Present on admission -Open wounds on feet bilaterally, looks to be healing -Wound care assessed and redressed today 6. End stage renal disease on hemodialysis, present on admission -Regular dialysis on Mon, Wed, Fri -Nephrology to see patient 7. Insulin-dependent type II diabetes. Present on admission -HbA1c 5.6% in 07/2016 -Glucose 302 on admit. Note, patient is in the midst of prednisone burst 60mg daily -Bedside blood glucose checks -Insulin Lispro low correction Patient is admitted under observation status with expected length of stay less than 2 midnights due to risk of adverse event, and complexity of treatment plan. . Pain Evaluation: Adequate Pain Control (He had questions) VTE Prophylaxis: Sub-Q Heparin (Unfractionated) Resuscitation Status: CPR: Attempt Resuscitation Time spent 30 minutes Attending Statement I have seen and evaluated patient at bedside in addition to directly supervising care provided by resident physician. I agree with above documentation. This very complex and unfortunate 26 YO admitted with hypertensive urgency with acute on chronic abdominal pain. Blood pressure issues addressed with addition of standing and PRN medications. Abdominal pain likely related to mass, which had been evaluated extensively in the past, pt already well known to Dr. Adams ID following treatment course for presumed abdominal TB which subsequent studies (continued growth of mass in setting of TB medications) seems to have disproven. This condition may require further eval and surgical intervention, but should BP stabilize and pain improve, this would not be required during this hospitalization. Will continue to monitor closely, consider further eval/intervention based on Pt condition in AM. ROSA MARQUIS DO Sep 10, 2016 07:39 Demetrius Washington DO Sep 10, 2016 22:42
[2016-09-10] MEDS: Felodipine 5 mg ER24 Tablet PO SCH (21:07)
[2016-09-11] VITALS (8 sets, daily range): BP systolic 108–191; BP diastolic 66–111; PULSE 85–98; RESP 16–18; O2SAT 98–100
--- NOTE | 2016-09-11 02:47 | NUR ---
Pt concerns: Pt states having hot and cold flashes over the last week, unrelated to fevers. Pt did ask RN to write a note about this, stating she didn't know why this would be occurring. Pt has been afebrile through the night.
--- NOTE | 2016-09-11 02:49 | NUR ---
BP: Pt's BP at the beginning of the shift was 206/118. Pt did receive day medications and newly ordered medications late due to dialysis and received a dose of IV Labatolol a few hours prior to this. An hour after HS medications were given, BP was reassessed, due to the OT dose of additional IV Labatolol that was ordered to be given. BP one hour after PO medication was 136/67. The additional Labatolol was not given. The next BP was 125/83; pt states lower than her "normal" BP. The second dose of Hydralazine was held, will continue to monitor BP.
[2016-09-11] MEDS: Insulin LISPRO 300 Unit/3 mL Inj SUBQ SCH ×4 (07:30→22:00)
[2016-09-11] MEDS: Pantoprazole 40 mg ER24 Tablet PO SCH (08:53)
[2016-09-11] MEDS: predniSONE 5 mg Tablet PO SCH (08:54)
[2016-09-11] MEDS: Felodipine 5 mg ER24 Tablet PO SCH (08:54)
[2016-09-11] MEDS: Heparin 5,000 Unit/mL Inj SUBQ SCH ×2 (09:04→21:01)
--- NOTE | 2016-09-11 11:11 | PCM.PNMED ---
Subjective Date of Service Sep 11, 2016 Subjective Her BP has been normalized. She reports having mild RUQ/epigastric pain. She was able to have breakfast today without episode of nausea and vomiting. She has no fever/chills. Exam Vital Signs Vital Sign - Last Date Time Temp Pulse Resp B/P Pulse Ox O2 Delivery O2 Flow Rate FiO2 09/11/16 11:04 85 09/11/16 10:36 36.8 18 118/73 100 Room Air Intake and Output 09/10/16 09/10/16 09/11/16 Cumulative From/Thru 15:00 23:00 07:00 09/10/16 01:36 - 09/11/16 06:05 Intake Total 118 ml 700 ml 440 ml 1258 ml Output Total 3700 ml 0 ml 3700 ml Balance -3582 ml 700 ml 440 ml -2442 ml Intake Oral 118 ml 700 ml 440 ml 1258 ml Output Urine Total 0 ml 0 ml 0 ml Ultrafiltrate 3700 ml 3700 ml # Voids 1 1 # Bowel Movements 0 0 0 Exam General: Alert, Oriented X3, Cooperative Head: Normal Eyes: PERRLA, EOMI, Scleral Anicteric Ears: Canals Mouth: Lips, Mouth Normal, Mucous Membr Moist/[place] Neck: Supple, Tenderness Chest & Lungs: Chest Wall Normal, Clear to auscultation & percussion, No adventitious breath sounds Cardiovascular: Exam Unremarkable, Regular Rate/Rhythm, Normal S1, Normal S2, No Murmurs/Rubs/Gallops Abdomen: Tender, mild tenderness on RUQ, Non-distended, No masses, No hepatosplenomegaly Musculoskeletal: Unremarkable, Normal Range of Motion Extremities: No cyanosis/clubbing left arm edema, AVF with good thrill, s/p bilateral TMA. Lab and Diagnostics Result Diagram: 09/10/16 0645 09/11/16 1000 Assessment & Plan 1. ESRD on HD Q MWF. 2. Uncontrolled HTN with hypertensive nephrosclerosis. 3. Acute on chronic epigastric pain with underlying disease of GERD. 4. Membranoproliferative GN, status post failed renal transplant, 5. DM-2 6. Severe peripheral vascular disease s/p bilateral TMA 7. Renal osteodystrophy. plan: Continue coreg and losartan Decrease hydralazine 50 mg to twice a day. Next HD in am. VTE Prophylaxis: Sub-Q Heparin (Unfractionated) Resuscitation Status: CPR: Attempt Resuscitation Trent Patrick MD Sep 11, 2016 11:10
[2016-09-11] MEDS ORDERED: Albuterol 2.5 mg/3 mL Inhalation Solution NEB ONE (12:40)
[2016-09-11] MEDS ORDERED: Insulin Human REGular-Omnicell 100 Unit/mL IV ONE ×2 (12:50→13:50)
--- NOTE | 2016-09-11 13:47 | PCM.PNMED ---
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 Overnight no acute events. Blood pressure is in normal range for patient with addition of hydralazine and losartan. She continues to report right upper quadrant abdominal pain that is only mildly relieved for a short time with IV morphine. She reports no headache, dizziness, or SOB. Exam Vital Signs Vital Sign - Last Date Time Temp Pulse Resp B/P Pulse Ox O2 Delivery O2 Flow Rate FiO2 09/11/16 04:34 36.7 85 18 144/87 99 Room Air Intake and Output 09/10/16 09/10/16 09/11/16 Cumulative From/Thru 15:00 23:00 07:00 09/10/16 01:36 - 09/11/16 06:05 Intake Total 118 ml 700 ml 440 ml 1258 ml Output Total 3700 ml 0 ml 3700 ml Balance -3582 ml 700 ml 440 ml -2442 ml Intake Oral 118 ml 700 ml 440 ml 1258 ml Output Urine Total 0 ml 0 ml 0 ml Ultrafiltrate 3700 ml 3700 ml # Voids 1 1 # Bowel Movements 0 0 0 Exam General: No acute distress, well-developed, well-nourished, appropriately interactive HEENT: Normocephalic, atraumatic. External ears without defect. Neck: Supple Cardiovascular: Regular rate and rhythm with no murmurs, rubs, or gallops appreciated Pulmonary: Clear to auscultation bilaterally with no crackles, wheezes, or rhonchi. Normal respiratory effort with no use of accessory muscles. Abdomen: Bowel tones present. Soft, nondistended. Tender in right upper quadrant , voluntary guarding, rebound tenderness. No hepatosplenomegaly or masses appreciated. Extremities: No clubbing, cyanosis, edema, or lymphadenopathy appreciated. Toes amputated bilaterally under dressings which are clean and dry. Skin: Normal temperature, turgor, and texture; multiple hyperpigmented nodules appreciated on bilateral lower extremities. Neurological: Cranial nerves grossly intact. Normal muscle strength, tone, and bulk. No known gait impairment. Psychiatric: Normal mood and affect. Alert and oriented to person, place, and time. 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 Hypertensive urgency, present on admission. resolved -BP 108/66 -Continue hydralazine, losartan, carvedilol, felodipine -Continue to monitor BP 2. Acute on chronic abdominal pain. Present on admission. Active -Patient has been to [facility] ED on 09/02/2016 and 09/05/2016 with c/o abdominal pain -CT KUB on 09/04/2016 without obvious pathology but did show stool filled colon -MiraLAX and Colace, senna PRN -Continue with supportive care -Tylenol for pain. Breakthrough pain with hydrocodone and morphine -Zofran PRN 3. Acute hyperkalemia. Present on admission. Active -K 6.4 on admit. A.m. recheck was 5.8, remains elevated at 5.7 this morning No peaked T-waves on EKG -Kayexalate, regular insulin, D5, albuterol. Repeat BMP again in AM -Hemodialysis in a.m. 4. Thrombocytopenia, acute. Present on admission. Active -Uncertain etiology -Continue to follow with CBC 5. s/p bilateral toes amputation. Present on admission -Open wounds on feet bilaterally, looks to be healing -Wound care assessed and is following thank you 6. End stage renal disease on hemodialysis, present on admission -Regular dialysis on Mon, Wed, Fri -Nephrology following, we appreciate your input 7. Insulin-dependent type II diabetes. Present on admission -HbA1c 5.6% in 07/2016 -Glucose 302 on admit. Note, patient is in the midst of prednisone burst 60mg daily -Bedside blood glucose checks -Insulin Lispro low correction Patient is admitted under observation status with expected discharge tomorrow after dialysis due to risk of adverse event, and complexity of treatment plan. . VTE Prophylaxis: Sub-Q Heparin (Unfractionated) Resuscitation Status: CPR: Attempt Resuscitation Attending Statement The patient was seen and examined together with Dr. Steward on 09/11/2016 and I agree with the history, exam and plan as outlined in the note above. Beatris Steward DO Sep 11, 2016 06:53 Merrill Desai MD Sep 12, 2016 10:27
[2016-09-11] MEDS: Ondansetron 2 mg/mL 2 mL Inj IVPUSH PRN ×2 (13:53→17:32)
--- NOTE | 2016-09-11 16:20 | NUR ---
Crit Lab Result Called by lab, critical result Potassium 6.2. RB. Paged of result, entered intervention. called back 16:20. Expected Lab value, treatment administered: Kayexalate + D50 & Insulin. Next Lab draw at 18:00. Will relay to next shift.
--- NOTE | 2016-09-11 16:51 | NUR ---
Social Work-initial assessment: Data:See initial assessment. Pt is a 26 y/o female who was admitted on 09/10/16 for hyperkalemia per H&P. Pt insurance is [employer] and [employer] and PCP is HARSHA Butcher. EMR reviewed. Pt resides at home with her where she remains independent with ADLs. Pt uses a w/c at baseline and does not drive. Pt has no HH Or SNF history. 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 SW discussed DPOA/ advanced directive, pt declining resources. Pt goes to dialysis. Pt has DAVID and her CM is Susan Obrien, clinicals faxed. Pt's family to provide transport home. SW provided phone number and plan on white board in room. No discharge needs identified. SW will continue to follow if needs arise. Assessment:Pt who is independent at baseline. Plan:Pt to discharge home when medically stable via POV. No discharge needs identified. SW will continue to follow if needs arise. LORENA Gimenez Addendum: 09/11/16 at 1654 by SUSAN OSHEA Amended: Links added.
[2016-09-11] MEDS: HYDROcodone-APAP 5-325 mg Tablet PO PRN (16:52)
[2016-09-11] MEDS: Polyethylene Glycol (PEG) 17 Gm Powder PO SCH (17:31)
--- NOTE | 2016-09-11 20:03 | NUR ---
HYPERKALEMIA Morning LAB value for K+ at 5.7. ordered Kayexalate, and D50 push, with 10 U Insulin Regular. Verified order with Pharmacy and MD. Initial BG 271. Medications administered. 1/2 Syringe D50 administered. Next BG checks in 15 min: 289. Continued checks QHour, BG dropping slowly. Continuing to monitor, Dinner Insulin held. Notified of critical lab value for K+: 6.2 at 1600. paged, Lab taken prior to medication administration. New labs ordered at 1800. Report given to next shift to continue with checks.
[2016-09-11] MEDS: PT Own Med->Oral Medication PO SCH ×2 (20:30)
[2016-09-11] MEDS: Alum-Mag Hydrox-Simeth 30 mL Suspension PO PRN (23:12)
[2016-09-12] VITALS (10 sets, daily range): BP systolic 123–216; BP diastolic 87–118; PULSE 45–101; RESP 17–20; O2SAT 95–100
--- NOTE | 2016-09-12 05:49 | NUR ---
Hypertension / Pain At start of shift BP 179/111 now BP 194/104 Pulse 90 MD aware of HTN Controlling pain with 2mg IV morphine. Pain declines from 7/10 to 5/10 in abdominal area with each admin. and is acceptable to patient.
[2016-09-12 06:46] LABS: Mean Corpuscular Hemoglobin 27.5 pg (27.0-35.0); Mean Corpuscular Volume 90.3 fL (81-100)
--- NOTE | 2016-09-12 07:05 | NUR ---
Hypertension Morning VS at 0705 had BP of 213/109 and HR of 45. paged, morning dose hydralazine given. Confirmed with pharmacy about heart medications, gave some heart meds early to lower BP: Losartan & Felodipine. Continuing to monitor BP/HR prior to Dialysis tx. 0830 BP 216/118, HR 97. Continuing care with MD to control BP/HR.
[2016-09-12] MEDS: Felodipine 5 mg ER24 Tablet PO SCH (07:51)
[2016-09-12] MEDS: Pantoprazole 40 mg ER24 Tablet PO SCH (07:51)
[2016-09-12] MEDS: Polyethylene Glycol (PEG) 17 Gm Powder PO SCH (07:53)
[2016-09-12] MEDS: Heparin 5,000 Unit/mL Inj SUBQ SCH ×2 (07:53→20:43)
[2016-09-12] MEDS: Insulin LISPRO 300 Unit/3 mL Inj SUBQ SCH ×4 (07:58→22:00)
[2016-09-12] MEDS: PT Own Med->Oral Medication PO SCH ×4 (08:30→20:30)
--- NOTE | 2016-09-12 08:50 | NUR ---
Off Floor to Dialysis - MOC Report given to AQUILES Lock in MOC. aware. Tele notified. Medications with chart for afternoon dose. Pt transferred via Bed with GROUP FITNESS INSTRUCTOR and SN. No apparent s/sx of distress.
--- NOTE | 2016-09-12 09:34 | NUR ---
Dialysis in [facility] Patient arrived to [facility] by bed to room 244-2. Plan of care discussed. supervisor pipe joints at bedside. Report received from Rajesh Mansfield RN. surgical scrub technologist notified of room change. Addendum: 09/12/16 at 1315 by EVERARDO DUTTA RN Dialysis has ended. PD catheter flushed by winch truck operator. Report given to Rajesh Mansfield RN. Awaiting transport. Addendum: 09/12/16 at 1355 by EVERARDO DUTTA RN Patient transported by bed back to room 3021.
--- NOTE | 2016-09-12 11:24 | PCM.PNMED ---
Subjective Date of Service Sep 12, 2016 Subjective c/o mild abd pain. Today she has pain on LUQ. She has no fever/chills. BP has elevated. She is seen while on HD. BP 168/70 Exam Vital Signs Vital Sign - Last Date Time Temp Pulse Resp B/P Pulse Ox O2 Delivery O2 Flow Rate FiO2 09/12/16 10:34 93 09/12/16 08:30 216/118 09/12/16 07:06 36.7 17 100 Room Air Intake and Output 09/11/16 09/11/16 09/12/16 Cumulative From/Thru 15:00 23:00 07:00 09/10/16 01:36 - 09/12/16 05:46 Intake Total 700 ml 400 ml 2358 ml Output Total 3700 ml Balance 700 ml 400 ml -1342 ml Intake Oral 700 ml 400 ml 2358 ml Output Urine Total 0 ml Ultrafiltrate 3700 ml # Voids 2 2 5 # Bowel Movements 0 0 Exam General: Alert, Oriented X3, Cooperative Head: Normal Eyes: PERRLA, EOMI, Scleral Anicteric Ears: Canals Mouth: Lips, Mouth Normal, Mucous Membr Moist/[place] Neck: Supple, Tenderness Chest & Lungs: Chest Wall Normal, Clear to auscultation & percussion, No adventitious breath sounds Cardiovascular: Exam Unremarkable, Regular Rate/Rhythm, Normal S1, Normal S2, No Murmurs/Rubs/Gallops Abdomen: Tender, mild tenderness on LUQ, Non-distended, No masses, No hepatosplenomegaly. PD cath: dry, clean and intact. Musculoskeletal: Unremarkable, Normal Range of Motion Extremities: No cyanosis/clubbing left arm edema, AVF with good thrill, s/p bilateral TMA. Lab and Diagnostics Result Diagram: 09/12/1662409/12/16624 Assessment & Plan 1. ESRD on HD Q MWF. 2. Uncontrolled HTN with hypertensive nephrosclerosis. 3. Acute on chronic epigastric pain with underlying disease of GERD. 4. Membranoproliferative GN, status post failed renal transplant, 5. DM-2 6. Severe peripheral vascular disease s/p bilateral TMA 7. Renal osteodystrophy. plan: Continue coreg, felodipine and losartan increase hydralazine 50 mg TID. will order PD fluid analysis for cell diff/count/gram stain/culture. VTE Prophylaxis: Sub-Q Heparin (Unfractionated) Resuscitation Status: CPR: Attempt Resuscitation Trent Patrick MD Sep 12, 2016 11:24
--- NOTE | 2016-09-12 12:45 | NUR ---
Dialysis note: 3 1/2 hrs tx. 3000 ml net UF. JONAS graft. Pls see DTR for VS details. Qb 400-450. Heparin given. O2 @ 2L via NC on. Tolerated tx, slept at intervals. Graft needle sites clotted w/in 10 min. PD catheter exit site dsg changed, no s/s of infection noted. PD catheter flushed, effluent clear, no fibrin, no sediments. PD solution 1.5% dwelled for culture, gm stain and cell count to be obtained after 1 hour. Report given to Hayde Leon and Markell Stauffer RN. Stable at time of transfer.
[2016-09-12] MEDS: predniSONE 5 mg Tablet PO SCH (14:26)
--- NOTE | 2016-09-12 14:49 | NUR ---
HANNAH signed. LORENA Gimenez
[2016-09-12 15:33] LABS: BFWBC 19 /mm3; MONOCYTES,BODY FLUID 18 %; OTHER CELLS,BODY FLUID 34
--- NOTE | 2016-09-12 15:47 | PCM.PNMED ---
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 Patient is elevated blood pressures throughout the night with highest pressure this morning of 216/118 despite being on 4 antihypertensive medications. She received dialysis this morning and her blood pressure afterward was 160/89. She reported having continued abdominal pain. Records review she had a gastric emptying study in August 2015 with 44% residual. She was subsequently seen at [facility] for gastroparesis. Dr. Babin recommended obtaining domperidone from [facility] as she is not eligible for a stimulator due to her peritoneal dialysis catheter. There was some concern about being on Reglan long-term due to possible side effects. Patient recalls eating exceptionally more while on Reglan but is willing to try it to see if treating her gastroparesis will help with her abdominal pain. EGD was performed in January 2015 with evidence of a linear esophageal ulcer. Exam Vital Signs Vital Sign - Last Date Time Temp Pulse Resp B/P Pulse Ox O2 Delivery O2 Flow Rate FiO2 09/12/16 14:00 36.8 101 18 160/89 99 Room Air Intake and Output 09/11/16 09/11/16 09/12/16 Cumulative From/Thru 14:59 22:59 06:59 09/10/16 01:36 - 09/12/16 05:46 Intake Total 700 ml 400 ml 2358 ml Output Total 3700 ml Balance 700 ml 400 ml -1342 ml Intake Oral 700 ml 400 ml 2358 ml Output Urine Total 0 ml Ultrafiltrate 3700 ml # Voids 2 2 5 # Bowel Movements 0 0 Exam General: No acute distress, well-developed, well-nourished, appropriately interactive, seen during hemodialysis HEENT: Normocephalic, atraumatic. External ears without defect. Neck: Supple Cardiovascular: Regular rate and rhythm with no murmurs, rubs, or gallops appreciated Pulmonary: Clear to auscultation bilaterally with no crackles, wheezes, or rhonchi. Normal respiratory effort with no use of accessory muscles. Abdomen: Bowel tones present. Soft, nondistended. mildly tender in right upper quadrant. No hepatosplenomegaly or masses appreciated. Extremities: No clubbing, cyanosis, edema, or lymphadenopathy appreciated. Toes amputated bilaterally under dressings which are clean and dry. Skin: Normal temperature, turgor, and texture; multiple hyperpigmented nodules and dry skin appreciated on bilateral lower extremities. Neurological: Cranial nerves grossly intact. Normal muscle strength, tone, and bulk. No known gait impairment. Psychiatric: Normal mood and affect. Alert and oriented to person, place, and time. 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 Hypertensive urgency, present on admission. Active -BP 160/89 - Hydralazine increased to every 8 hours -Continue hydralazine, losartan, carvedilol, felodipine -Continue to monitor BP 2. Acute on chronic abdominal pain. Present on admission. Active -Patient has been to [facility] ED on 09/02/2016 and 09/05/2016 with c/o abdominal pain -CT KUB on 09/04/2016 without obvious pathology but did show stool filled colon -Abdominal ultrasound 09/02/2016 shows increased hepatic echogenicity likely related to fatty infiltration of liver, and unchanged gallbladder polyp, trace free intraperitoneal fluid, sonographic splenomegaly. -Peritoneal fluid analysis pending -MiraLAX and Colace, senna PRN -Continue with supportive care -Tylenol for pain. Breakthrough pain with hydrocodone and morphine -Zofran PRN -5 mg Reglan by mouth 30 minutes before meals 3. Acute hyperkalemia. Present on admission. Active -K 6.4 on admit. A.m. recheck was 5.8, remains elevated at 5.7 this morning No peaked T-waves on EKG -Kayexalate, regular insulin, D5, albuterol. Repeat BMP this morning shows potassium of 5.9 -Hemodialysis done today. 4. Thrombocytopenia, acute. Present on admission. Active -Uncertain etiology -Continue to follow with CBC 5. s/p bilateral toes amputation. Present on admission -Open wounds on feet bilaterally, looks to be healing -Wound care assessed and is following thank you 6. End stage renal disease on hemodialysis, present on admission -Regular dialysis on Mon, Wed, Fri -Nephrology following, we appreciate your input 7. Insulin-dependent type II diabetes. Present on admission -HbA1c 5.6% in 07/2016 -Glucose 302 on admit. Note, patient is in the midst of prednisone burst 60mg daily -Bedside blood glucose checks -Insulin Lispro low correction Patient is admitted under observation status with expected discharge tomorrow based on improved blood pressure control. Pain Evaluation: Adequate Pain Control GI Prophylaxis: H2 stephen, Proton Pump Inhibitor VTE Prophylaxis: Sub-Q Heparin (Unfractionated) Resuscitation Status: CPR: Attempt Resuscitation Attending Statement The patient was seen and examined together with Dr. Steward on 09/12/2016 and I agree with the history, exam and plan as outlined in the note above. Beatris Steward DO Sep 12, 2016 15:47 Merrill Desai MD Sep 13, 2016 10:23
--- NOTE | 2016-09-12 15:58 | NUR ---
Social Work-readiness for discharge: Data:EMR Reviewed. Pt is on day 2 of hospitalization for Hyperkalemia per H&P. Pt is not medically stable, anticipate tomorrow. SW checked in with pt and she anticipates to return home no needs. Pt uses w/c at baseline. Pt to go to dialysis M/W/F. Pt's CM is Susan Obrien, updated clinicals have been faxed. Pt's family to provide transport home. No discharge needs identified. SW will continue to follow if needs arise. Assessment:Pt who is independent at baseline. Plan:Pt to discharge home with family when medically stable via POV. Pt to continue with DAVID at home. No discharge needs identified. SW will continue to follow if needs arise. LORENA Gimenez
--- NOTE | 2016-09-12 18:35 | NUR ---
Gastroparesis Pt started on treatment for gastroparesis. Given ordered 5mg Reglan 30 minutes before meals. Pt reports feeling some cramping and pinching in middle of abdomen after lunch meal. Discussed with pt and willing to continue with treatment for MD to assess gastroparesis. MD aware of symptoms. Continuing with plan of care, reporting to next shift.
[2016-09-12] MEDS: HYDROcodone-APAP 5-325 mg Tablet PO PRN (20:50)
[2016-09-13] VITALS (10 sets, daily range): BP systolic 91–207; BP diastolic 59–107; PULSE 75–100; RESP 18; O2SAT 95–100
[2016-09-13] MEDS: Ondansetron 2 mg/mL 2 mL Inj IVPUSH PRN ×3 (01:05→22:58)
--- NOTE | 2016-09-13 05:56 | NUR ---
Itchy back c/o itchy back, PRN order given for IV Benadryl. Patient reporting good response to medication.
[2016-09-13 06:31] LABS: Mean Corpuscular Hemoglobin 27.4 pg (27.0-35.0); Mean Corpuscular Volume 88.2 fL (81-100)
[2016-09-13] MEDS: Polyethylene Glycol (PEG) 17 Gm Powder PO SCH (08:30)
[2016-09-13] MEDS: PT Own Med->Oral Medication PO SCH ×4 (08:30→20:30)
[2016-09-13] MEDS: Heparin 5,000 Unit/mL Inj SUBQ SCH ×2 (09:08→20:47)
[2016-09-13] MEDS: Felodipine 5 mg ER24 Tablet PO SCH (09:09)
[2016-09-13] MEDS: Pantoprazole 40 mg ER24 Tablet PO SCH (09:09)
[2016-09-13] MEDS: predniSONE 5 mg Tablet PO SCH (09:09)
[2016-09-13] MEDS: Insulin LISPRO 300 Unit/3 mL Inj SUBQ SCH ×4 (09:26→22:00)
--- NOTE | 2016-09-13 12:34 | PCM.PNMED ---
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 Patient is elevated blood pressures throughout the night 180s-210's systolic despite being on 4 antihypertensive medications. She feels okay with some mild decrease in her abdominal pain. She did note some additional cramping while eating after taking the Reglan. Exam Vital Signs Vital Sign - Last Date Time Temp Pulse Resp B/P Pulse Ox O2 Delivery O2 Flow Rate FiO2 09/13/16 11:23 90 192/94 09/13/16 10:36 36.9 18 95 Room Air Intake and Output 09/12/16 09/12/16 09/13/16 Cumulative From/Thru 15:00 23:00 07:00 09/10/16 01:36 - 09/12/16 19:29 Intake Total 837 ml 3195 ml Output Total 3000 ml 6700 ml Balance -3000 ml 837 ml -3505 ml Intake Oral 837 ml 3195 ml Output Urine Total 0 ml Ultrafiltrate 3000 ml 6700 ml # Voids 0 5 # Bowel Movements 2 2 Exam General: No acute distress, well-developed, well-nourished, appropriately interactive HEENT: Normocephalic, atraumatic. External ears without defect. Neck: Supple Cardiovascular: Regular rate and rhythm with no murmurs, rubs, or gallops appreciated Pulmonary: Clear to auscultation bilaterally with no crackles, wheezes, or rhonchi. Normal respiratory effort with no use of accessory muscles. Abdomen: Bowel tones present. Soft, nondistended. mildly tender in right upper quadrant. No hepatosplenomegaly or masses appreciated. peritoneal dialysis catheter in LLQ without erythema dressing intact without erythema. Extremities: No clubbing, cyanosis, edema, or lymphadenopathy appreciated. Toes amputated bilaterally under dressings which are clean and dry. Skin: Normal temperature, turgor, and texture; multiple hyperpigmented nodules and dry skin appreciated on bilateral lower extremities. Neurological: Cranial nerves grossly intact. Normal muscle strength, tone, and bulk. No known gait impairment. Psychiatric: Normal mood and affect. Alert and oriented to person, place, and time. 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 Hypertensive urgency, present on admission. Active -BP systolic remains greater than 160 -Hydralazine discontinued minoxidil started per Dr. Burnette of Nephrology -Continue losartan, carvedilol, felodipine -Continue to monitor BP 2. Acute on chronic abdominal pain. Present on admission. Active -Patient has been to [facility] ED on 09/02/2016 and 09/05/2016 with c/o abdominal pain -CT KUB on 09/04/2016 without obvious pathology but did show stool filled colon -Abdominal ultrasound 09/02/2016 shows increased hepatic echogenicity likely related to fatty infiltration of liver, and unchanged gallbladder polyp, trace free intraperitoneal fluid, sonographic splenomegaly. -Peritoneal fluid analysis pending -MiraLAX and Colace, senna PRN -Continue with supportive care -Tylenol for pain. Breakthrough pain with hydrocodone and morphine -Zofran PRN -5 mg Reglan by mouth 30 minutes before meals -GI consulted, They are not able to formally consult and see patient as an inpatient but will see her within 10 days in the outpatient setting. 3. Acute hyperkalemia. Present on admission. Active -K 6.4 on admit. A.m. recheck was 5.8, remains elevated at 5.5 this morning No peaked T-waves on EKG on admission -Kayexalate given again today 4. Thrombocytopenia, acute. Present on admission. Active improving -Uncertain etiology -Trending upward 98 to 139 over the last 5 days -Continue to follow with CBC 5. s/p bilateral toes amputation. Present on admission -Open wounds on feet bilaterally, looks to be healing -Wound care assessed and is following thank you 6. End stage renal disease on hemodialysis, present on admission -Regular dialysis on Mon, Wed, Fri -Nephrology following, we appreciate their input 7. Insulin-dependent type II diabetes. Present on admission, stable -HbA1c 5.6% in 07/2016 -Glucose 302 on admit. Note, patient is in the midst of prednisone burst 60mg daily -Bedside blood glucose checks -Home insulin dose Patient is admitted under observation status with expected discharge tomorrow based on improved blood pressure control. Pain Evaluation: Adequate Pain Control GI Prophylaxis: H2 stephen, Proton Pump Inhibitor VTE Prophylaxis: Sub-Q Heparin (Unfractionated) Resuscitation Status: CPR: Attempt Resuscitation Attending Statement The patient was seen and examined together with Dr. Steward on 09/13/2016 and I agree with the history, exam and plan as outlined in the note above. Beatris Steward DO Sep 13, 2016 12:34 Merrill Desai MD Sep 14, 2016 11:58
--- NOTE | 2016-09-13 12:36 | PCM.PNMED ---
Subjective Date of Service Sep 13, 2016 Subjective Reglan started, doing better. BP very labile. Exam Vital Signs Vital Sign - Last Date Time Temp Pulse Resp B/P Pulse Ox O2 Delivery O2 Flow Rate FiO2 09/13/16 11:23 90 192/94 09/13/16 10:36 36.9 18 95 Room Air Intake and Output 09/12/16 09/12/16 09/13/16 Cumulative From/Thru 15:00 23:00 07:00 09/10/16 01:36 - 09/12/16 19:29 Intake Total 837 ml 3195 ml Output Total 3000 ml 6700 ml Balance -3000 ml 837 ml -3505 ml Intake Oral 837 ml 3195 ml Output Urine Total 0 ml Ultrafiltrate 3000 ml 6700 ml # Voids 0 5 # Bowel Movements 2 2 Exam General: Alert, Oriented X3, Cooperative Head: Normal Eyes: PERRLA, EOMI, Scleral Anicteric Ears: Canals Mouth: Lips, Mouth Normal, Mucous Membr Moist/[place] Neck: Supple, Tenderness Chest & Lungs: Chest Wall Normal, Clear to auscultation & percussion, No adventitious breath sounds Cardiovascular: Exam Unremarkable, Regular Rate/Rhythm, Normal S1, Normal S2, No Murmurs/Rubs/Gallops Abdomen: Tender, mild tenderness on LUQ, Non-distended, No masses, No hepatosplenomegaly. PD cath: dry, clean and intact. Musculoskeletal: Unremarkable, Normal Range of Motion Extremities: No cyanosis/clubbing left arm edema, AVF with good thrill, s/p bilateral TMA. Lab and Diagnostics Result Diagram: 09/13/16 0610 09/13/16 0610 Assessment & Plan 1. ESRD on HD Q MWF. - with hyperkalemia. 2. Uncontrolled HTN with hypertensive nephrosclerosis. - likely due to volume related, high SAUD activation ? from [place] kidneys and transplanted kidney. - will challenge more fluid removal with HD. 3. Acute on chronic epigastric pain with underlying disease of GERD. 4. Membranoproliferative GN, status post failed renal transplant. 5. DM-2. 6. Severe peripheral vascular disease s/p bilateral TMA. 7. Renal osteodystrophy. plan: Continue coreg, hydralazine, felodipine and losartan Add minoxidil. Continue to monitor her BP fo another 6-12 hr. Add one dose of kayexalate. GI Prophylaxis: H2 stephen, Proton Pump Inhibitor VTE Prophylaxis: Sub-Q Heparin (Unfractionated) Resuscitation Status: CPR: Attempt Resuscitation Trent Patrick MD Sep 13, 2016 12:36
--- NOTE | 2016-09-13 18:01 | NUR ---
B/P Patient continues to have elevated B/P. Provider notified and additional medications were ordered. She will receive dialysis in the am and be reevaluated by MD. Patient aware of plan, no questions at this time. Addendum: 09/13/16 at 1913 by ARNAV HAMILTON RN Reviewed and agree with student nurse Kristal's note. Pt also reports her back itching has resolved today after sponge bath and lotion applied to back, declines any need for benadryl this shift. Call light in reach. Care continues.
[2016-09-13] MEDS: Alum-Mag Hydrox-Simeth 30 mL Suspension PO PRN (20:43)
[2016-09-14] VITALS (11 sets, daily range): BP systolic 127–187; BP diastolic 82–103; PULSE 70–97; RESP 16–18; O2SAT 97–100
[2016-09-14] MEDS: PT Own Med->Oral Medication PO SCH ×2 (08:02)
[2016-09-14] MEDS: Polyethylene Glycol (PEG) 17 Gm Powder PO SCH (08:03)
[2016-09-14] MEDS: Insulin LISPRO 300 Unit/3 mL Inj SUBQ SCH ×2 (08:06→13:04)
[2016-09-14] MEDS: predniSONE 5 mg Tablet PO SCH (08:07)
[2016-09-14] MEDS: Pantoprazole 40 mg ER24 Tablet PO SCH (08:07)
[2016-09-14] MEDS: Heparin 5,000 Unit/mL Inj SUBQ SCH (08:08)
--- NOTE | 2016-09-14 08:27 | NUR ---
Off Unit: Patient transported to [facility] [place] room 243 in bed for dialysis. surgical tech notified. Scheduled am medications administered including BP med (except for 2QD BP meds) per mill crane operator request. Daily scheduled BP meds sent with patient per mill crane operator request.
--- NOTE | 2016-09-14 09:33 | PCM.PNMED ---
Subjective Date of Service Sep 14, 2016 Subjective Pt is seen while on HD treatment. BP is trending down during the treatment. Exam Vital Signs Vital Sign - Last Date Time Temp Pulse Resp B/P Pulse Ox O2 Delivery O2 Flow Rate FiO2 09/14/16 08:21 36.7 89 18 176/95 100 Room Air Intake and Output 09/13/16 09/13/16 09/14/16 Cumulative From/Thru 15:00 23:00 07:00 09/10/16 01:36 - 09/14/16 05:23 Intake Total 200 ml 500 ml 3895 ml Output Total 6700 ml Balance 200 ml 500 ml -2805 ml Intake Oral 200 ml 500 ml 3895 ml Output Urine Total 0 ml Ultrafiltrate 6700 ml # Voids 0 1 6 # Bowel Movements 1 2 5 Exam General: Alert, Oriented X3, Cooperative HEENT:: PERRLA, EOMI, Scleral Anicteric Mouth: Lips, Mouth Normal, Mucous Membr Moist/[place] Chest & Lungs: Chest Wall Normal, Clear to auscultation & percussion, No adventitious breath sounds Cardiovascular: Exam Unremarkable, Regular Rate/Rhythm, Normal S1, Normal S2, No Murmurs/Rubs/Gallops Abdomen: mild tenderness on LUQ, Non-distended, No masses, No hepatosplenomegaly. PD cath: dry, clean and intact. Musculoskeletal: Unremarkable, Normal Range of Motion Extremities: No cyanosis/clubbing left arm edema, AVF with good thrill, s/p bilateral TMA. Lab and Diagnostics Result Diagram: 09/13/1610 09/13/16 0610 Assessment & Plan 1. ESRD on HD Q MWF. 3.5 hr, UF 3-4L, DFR 600, BFR 400 1K for one hour and 2 K for the rest of the treatment. 35HCO3, revaclear, left AVF. 2. Uncontrolled HTN with hypertensive nephrosclerosis. - likely due to volume related, high SAUD activation ? from [place] kidneys and transplanted kidney. 3. Acute on chronic epigastric pain with underlying disease of GERD. 4. Membranoproliferative GN, status post failed renal transplant. 5. DM-2. 6. Severe peripheral vascular disease s/p bilateral TMA. 7. Renal osteodystrophy. plan: Continue minoxidil, coreg, hydralazine, felodipine and losartan. Will notify HD unit to increase fluid removal during HD. if stable after HD, she can be d/c'd home. GI Prophylaxis: H2 stephen, Proton Pump Inhibitor VTE Prophylaxis: Sub-Q Heparin (Unfractionated) Resuscitation Status: CPR: Attempt Resuscitation Trent Patrick MD Sep 14, 2016 09:32
--- NOTE | 2016-09-14 09:53 | NUR ---
Pt arrived to [facility] [place] [place]: Pt arrived to [facility] [place] [place] for dialysis. Report received from primary RN. press technician aware of transfer. Addendum: 09/14/16 at 1233 by OKSAR MCLEOD RN Pt completed treatment and may return to unit. Report given to primary. commercial hvac service technician aware of transfer.
--- NOTE | 2016-09-14 11:32 | NUR ---
Dialysis note: 3 1/2 hrs tx. 3000 ml net UF. JONAS graft. Pls see DTR for VS details. Qb 400. Heparin prime given. O2 @ 2L via NC on. Tolerated tx, slept at intervals. Graft needle sites clotted w/in 10 min. Report given to Amelia KWAN. Stable at time of transfer.
[2016-09-14] MEDS: Felodipine 5 mg ER24 Tablet PO SCH (13:02)
[2016-09-14] MEDS ORDERED: LOSA100T3 PO (14:17)
[2016-09-14] MEDS ORDERED: LON25 PO (14:17)
[2016-09-14] MEDS ORDERED: HYDR-3940 PO (14:17)
--- NOTE | 2016-09-14 14:23 | PCM.DIMED ---
Beatris Steward DO 09/12/16 0633: Discharge Instructions Date of Service Sep 14, 2016 Dates of Hospitalization Sep 10, 2016 at 00:10 Discharge Diagnosis Discharge Diagnosis Hypertension End Stage Renal Disease Gastroparesis Medication Instructions Take your hypertension medications as prescribed. Diet Renal Diet Activity No restrictions Call your provider Fever or Chills, Shortness of breath, Chest pain, Vomitting, Excessive diarrhea , Weakness (unilateral) Patient Instructions Take medications as prescribed. Try to eat small meals throughout the day. Follow-up plan Follow up with your rag cutting machine tender early next week. You will be able to see GI in the next 10 days regarding your abdominal pain and gastroparesis. Make an appointment to see your primary care provider within the next 2 weeks for a hospital follow up. Follow-up Provider: Elodia Mckeon MD Follow-up with PCP in: 1 week Provider: Ivelisse Hale MD Follow-up in: 1 week Mid-level Provider (F9): Elly Dumont Follow-up with Mid-level in: 2 weeks Merrill Desai MD 09/15/16 1419: Beatris Steward DO Sep 12, 2016 06:33 Merrill Desai MD Sep 15, 2016 14:19
--- NOTE | 2016-09-14 15:16 | NUR ---
Social Work: Discharge Data: Pt is on day 4 of hospitalization. EMR reviewed. No d/c planning needs identified. STAFF HOME THERAPY RN will continue to follow if needs arise. Assessment: Pt who is independent at baseline. Plan: Pt will d/c home today via POV. Pt is a dialysis pt. No d/c planning needs identified. STAFF HOME THERAPY RN will continue to follow if needs arise. LORENA Dacosta
--- NOTE | 2016-09-14 17:22 | NUR ---
Discharge: Patient discharged to home @ approx 1700. IV d/c'd intact, telemetry removed, desk monitor notified. Personal belongings sent home with patient. Home medication returned to patient. Reviewed three new prescriptions, home medication list, d/c instructions, and follow up appointments. Stressed importance of returning to hospital with severe ARCHIBALD and/or neurological symptoms. Patient verbalized understanding. Escorted to main entrance using patients personal wheelchair accompanied by HAIRSPRING VIBRATOR and family.
--- NOTE | 2016-09-14 17:30 | PCM.DC.MED ---
Discharge Summary Date of Service Sep 14, 2016 Dates of Hospitalization Date of Hospital Admission Sep 10, 2016 at 00:10 Date of Discharge: Sep 14, 2016 Providers: Admitting Physician: Cesilia Johnson DO Primary Care Physician: Neelima Dumont Attending Physician: Cesilia Johnson DO Diagnosis at Time of Discharge Diagnosis at Time of Discharge 1. Hypertensive urgency 2. Abdominal pain related to gastroparesis 3. Hyperkalemia 4. Thrombocytopenia 5. End-stage renal disease on hemodialysis 6. Insulin-dependent type II diabetes Consultations Dr. 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 Renal service was consulted to continue hemodialysis while being hospitalized. She is a patient of Dr. CAROLINA Mckeon. She used to be on PD but switched to HD due to poor clearance. She is dialyzed every Saturday, Saturday and Saturday. She came to the hospital this time with the complaint of epigastric pain with belching. She has felt weak and with some fever, temp in ED was 36.6. Pt reports having nausea and vomiting yesterday. She has no chest pain, shortness of breath, palpitation, diarrhea, poor appetite. She is now on dialysis. BP was elevated, BP 198/117. She was recently prescribed nifedipine but developed allergic reaction. She came to the ED on . Prednisone and benadryl were given. PAST MEDICAL HISTORY: Significant for membranoproliferative GN, status post failed renal transplant, DM-2, GERD, chronic anemia hypertension with hypertensive heart disease and hypertensive nephrosclerosis, and severe peripheral vascular disease, renal osteodystrophy. PAST SURGICAL HISTORY: Significant for an AV fistula placement, tubal ligation, peritoneal catheter placement, and a renal transplant. Bilateral transmetarsal amputation. SOCIAL HISTORY: She denies use of alcohol, tobacco, or illicit drugs. FAMILY HISTORY: Remarkable only for diabetes. ALLERGIES: NIFEDIPINE, CONTRAST MEDIA AND TRAMADOL. REVIEW OF SYSTEMS: 14-point ROS performed. MEDICATIONS: reviewed. Hospital Course Patient is a 26-year-old female with hypertension, diabetes, GERD, and ESRD secondary to membranoproliferative glomerulonephritis presenting with generalized myalgias, fever and abdominal pain, and admitted for hypertension and hyperkalemia: 1. Hypertensive urgency, present on admission. resolved -BP 165/97 -Continue hydralazine, losartan, carvedilol, felodipine, minoxidil for blood pressure control -Case discussed with Dr. Patrick of nephrology, patient stable after dialysis today with systolic blood pressure less than 180 she is okay to discharge with close follow-up. 2. Acute on chronic abdominal pain likely related to gastroparesis. Present on admission. Active -Patient has been to [facility] ED on 09/02/2016 and 09/05/2016 with c/o abdominal pain -CT KUB on 09/04/2016 without obvious pathology but did show stool filled colon -MiraLAX and Colace, senna PRN -5 mg Reglan 30 minutes before meals was started in the hospital with resolution of abdominal pain. -Continue with supportive care -Tylenol for pain. Breakthrough pain with hydrocodone and morphine -Zofran PRN -GI consulted, They are not able to formally consult and see patient as an inpatient but will see her within 10 days in the outpatient setting 3. Acute hyperkalemia. Present on admission. Active -K 6.4 on admit, No peaked T-waves on EKG -Kayexalate, regular insulin, D5, albuterol given once with subsequent dosing of Kayexalate -Hemodialysis was done on normal Saturday schedule 4. Thrombocytopenia, acute. Present on admission. Improving -Uncertain etiology -Platelets went from 98 up to 139 on day of discharge 5. s/p bilateral toes amputation. Present on admission -Open wounds on feet bilaterally, healing -Wound care assessed and is following thank you 6. End stage renal disease on hemodialysis, present on admission -Regular dialysis on Sat, Sat, Sat -Nephrology following 7. Insulin-dependent type II diabetes. Present on admission -HbA1c 5.6% in 07/2016 -Glucose 302 on admit. Note, patient is in the midst of prednisone burst 60mg daily -Bedside blood glucose checks -Home insulin dosing Exam Vital Signs (Last) Date Time Temp Pulse Resp B/P Pulse Ox O2 Delivery O2 Flow Rate FiO2 09/12/16 05:49 90 194/104 09/12/16 05:33 36.8 20 97 Room Air Exam General: No acute distress, well-developed, well-nourished, appropriately interactive HEENT: Normocephalic, atraumatic. External ears without defect. Neck: Supple Cardiovascular: Regular rate and rhythm with no murmurs, rubs, or gallops appreciated Pulmonary: Clear to auscultation bilaterally with no crackles, wheezes, or rhonchi. Normal respiratory effort with no use of accessory muscles. Abdomen: Bowel tones present. Soft, nondistended. nontender. No hepatosplenomegaly or masses appreciated. Extremities: No clubbing, cyanosis, edema, or lymphadenopathy appreciated. Toes amputated bilaterally under dressings. Skin: Normal temperature, turgor, and texture; multiple hyperpigmented nodules and dry skin appreciated on bilateral lower extremities. Neurological: Cranial nerves grossly intact. Normal muscle strength, tone, and bulk. No known gait impairment. Psychiatric: Normal mood and affect. Alert and oriented to person, place, and time. Test 09/09/16 21:42 09/10/16 02:25 09/10/16 06:45 09/11/16 10:00 Lipase 81U/L (13-60) Hold Soliman Top Tube Received (Received) White Blood Count 5.7th/mm3 (3.8-10.1) Red Blood Count 3.62mil/mm3 (3.90-5.20) Hemoglobin 10.0g/dL (12.0-15.6) Hematocrit 32.3% (35.0-46.0) Mean Corpuscular Volume 89.2fL (81-100) Mean Corpuscular Hemoglobin 27.6pg (27.0-35.0) Mean Corpuscular Hemoglobin Concent 31.0% (32.0-37.0) Red Cell Distribution Width 17.2% (12.3-15.4) Platelet Count 102bil/L (150-400) Neutrophils (%) (Auto) 74.3% (40-74) Lymphocytes (%) (Auto) 14.3% (14-46) Monocytes (%) (Auto) 7.7% (4-12) Eosinophils (%) (Auto) 3.0% (0-5) Basophils (%) (Auto) 0.2% (0-3) Total Bilirubin 0.2mg/dL (0.0-1.2) Aspartate Amino Transf (AST/SGOT) 7U/L (0-50) Alanine Aminotransferase (ALT/SGPT) 5U/L (0-32) Alkaline Phosphatase 77U/L (25-150) Total Protein 5.1g/dL (6.4-8.4) Albumin 3.2g/dL (3.4-5.0) Pro-B-Type Natriuretic Peptide 31459fa/mL (0-130) Test 09/11/16 15:00 09/11/16 18:28 Sodium Level 141mEq/L (134-144) Chloride Level 98mEq/L (97-108) Carbon Dioxide Level 27mmol/L (18-29) Blood Urea Nitrogen 48mg/dL (6-20) Creatinine 4.79mg/dL (0.57-1.00) Estimat Glomerular Filtration Rate 16mL/min (>59) Glucose Level 307mg/dL (60-99) Calcium Level 8.2mg/dL (8.5-10.1) Potassium Level 5.9mEq/L (3.5-5.2) Microbiology Results Blood culture showed no growth Discharge Medications Discharge Medications Carvedilol (Carvedilol) 25 Mg Tablet 50 MG PO BID (Reported) Felodipine ER (Felodipine ER) 10 Mg Tab.er.24h 10 MG PO DAILY (Reported) Hydralazine (Hydralazine) 50 Mg Tablet 50 MG PO Q8H Prescribed by: ROSA MARQUIS DO Insulin Aspart (NovoLOG U-100 Pen) 100 Unit/Ml Insuln.pen 1-12 UNITS SC ACHS ( Reported) 151-175 take 1unit 176-200 take 2units 201-225 take 3units 226-250 take 4units 251-275 take 5units 276-300 take 6units 301-325 take 7units 326-350 take 8units 351-375 take 9units 376-400 take 10units >400 take 12units Loratadine (Claritin) 10 Mg Capsule 10 MG PO DAILY (Reported) Losartan Potassium (Cozaar) 100 Mg Tablet 100 MG PO DAILY Prescribed by: ROSA MARQUIS DO Minoxidil (Minoxidil) 2.5 Mg Tablet 2.5 MG PO BID Prescribed by: ROSA MARQUIS DO Mycophenolate DR (Mycophenolic DR) 180 Mg Tablet 180 MG PO BID (Reported) Nortriptyline (Nortriptyline) 25 Mg Capsule 25 MG PO HS (Reported) Omeprazole (Omeprazole) 40 Mg Capsule.dr 40 MG PO DAILY (Reported) Prednisone (PredniSONE) 5 Mg Tab 5 MG PO DAILY (Reported) Ranitidine (Zantac) 150 Mg Tablet 150 MG PO BID (Reported) Sevelamer Carbonate (Renvela) 800 Mg Tablet 2,400 MG PO TIDWM (Reported) Tacrolimus (Tacrolimus) 1 Mg Capsule 1 MG PO BID (Reported) As needed Ondansetron (Ondansetron) 4 Mg Tablet 4 MG PO QID PRN PRN For Nausea (Reported) Followup Plan Disposition: Discharge home Follow-up plan Follow up with your zipper lining folder early next week. You will be able to see GI in the next 10 days regarding your abdominal pain and gastroparesis. Make an appointment to see your primary care provider within the next 2 weeks for a hospital follow up. Discharge Diet: Renal Diet Discharge Activity: No restrictions Patient Instructions Take medications as prescribed. Try to eat small meals throughout the day. Return to the hospital for severe sudden onset headache, or any unilateral weakness or other neurologic symptoms. Follow-up Provider: Elodia Mckeon MD Follow-up with PCP in: 1 week Provider: Ivelisse Hale MD Follow-up in: 1 week Mid-level Provider: Neelima Dumont Follow-up with Mid-level in: 2 weeks Time spent 45 minutes Attending Statement The patient was seen and examined together with Dr. Marquis on 09/14/2016 and I agree with the history, exam and plan as outlined in the note above. copies to: Ivelisse Hale MD; Neelima Dumont; Elodia Mckeon MD, Erika R DO Sep 12, 2016 06:34 Merrill Desai MD Sep 15, 2016 14:19
[2016-11-05] MEDS ORDERED: INSU100V7 SUBQ ×2 (09:59)
== END 2016-09-14 16:50 | disposition home or self-care (01) | DRG 391 ==
LOC: SED 19:52 → OBSVTOIN 09-10 00:10 → MPC 09-10 00:10 → INTOOBSV 09-10 00:10
PROVIDERS: ADMIT Internal Medicine; ATTEND Internal Medicine
PROC: 5A1D60Z (ICD-10-PCS; principal; 2016-09-10)
DX: K31.84 Gastroparesis (principal); N18.6 End stage renal disease; T86.12 Kidney transplant failure; I13.11 Hypertensive heart and chronic kidney disease without heart failure, with stage 5 chronic kidney disease, or end stage renal disease; E87.5 Hyperkalemia; I16.0 Hypertensive urgency; K21.9 Gastro-esophageal reflux disease without esophagitis; J30.9 Allergic rhinitis, unspecified; I73.9 Peripheral vascular disease, unspecified; D69.6 Thrombocytopenia, unspecified; Z79.4 Long term (current) use of insulin; Z89.412 Acquired absence of left great toe; Z89.421 Acquired absence of other right toe(s); Z99.2 Dependence on renal dialysis

== ENCOUNTER 2016-10-06 21:02 | Emergency (ER) | payer MEDICARE, MEDICAID ==
[~2016-10-06] VITALS: Ht 152.4 cm; Wt 56.0 kg
[~2016-10-06 21:02] MED LIST changes: -Acetaminophen PO; -CEPH-512 PO; -CHOL500050 PO; -DILT30TA30 PO; -DIPH25CA6 PO; +FELO10TA3 PO; -FLUD0.1T PO; -GABA-500 PO; +HYDR-3940 PO; +INSU100I SC; +LON25 PO; +LOSA100T3 PO; -NOVALOG SQ; +ONDA-53 PO; -ONDA4TAB6 PO; -OXYC-474 PO; -PRE20 PO; -PREG50CA PO
[2016-10-06 21:05] VITALS: BP 197/96; PULSE 99; RESP 16; O2SAT 100
--- NOTE | 2016-10-06 22:16 | ED.REPORT ---
HPI-General Illness Date of Service Oct 06, 2016 ED Provider: Luis Felipe Cabrera MD A 26 year old female with a history of ESRD on dialysis presents to the ED complaining of nonlabored shortness of breath. This has been occurring for the last two days. The pt is on MWF dialysis regularly, though she has had an extra treatment for the last three weeks. This is due to a new equation that has been used to calculate the amount of fluid to take off. With this equation, she has been fluid overloaded every time. She also had high potassium when labs were drawn four days ago. She was admitted for hyperkalemia on 10/01/2016. The pt denies pain. Nursing Notes Stated Complaint: SHORTNESS OF BREATH Chief Complaint: Respiratory Complaints Nursing Notes Reviewed: Yes Allergies: Coded Allergies: Contrast Media (Verified Allergy, Severe, FULL BODY RASH AND HIVES, 10/06/16 ) nifedipine (Verified Allergy, Severe, Anaphylaxis, 10/06/16) "Throat closing up; couldn't breathe tramadol (Verified Allergy, Unknown, Rash, 10/06/16) Scheduled Carvedilol (Carvedilol) 25 Mg Tablet 50 MG PO BID Felodipine ER (Felodipine ER) 10 Mg Tab.er.24h 10 MG PO DAILY Hydralazine (Hydralazine) 50 Mg Tablet 50 MG PO Q8H Insulin Aspart (NovoLOG U-100 Pen) 100 Unit/Ml Insuln.pen 1-12 UNITS SC ACHS 151-175 take 1unit 176-200 take 2units 201-225 take 3units 226-250 take 4units 251-275 take 5units 276-300 take 6units 301-325 take 7units 326-350 take 8units 351-375 take 9units 376-400 take 10units >400 take 12units Loratadine (Claritin) 10 Mg Capsule 10 MG PO DAILY Losartan Potassium (Cozaar) 100 Mg Tablet 100 MG PO DAILY Minoxidil (Minoxidil) 2.5 Mg Tablet 2.5 MG PO BID Mycophenolate DR (Mycophenolic DR) 180 Mg Tablet 180 MG PO BID Nortriptyline (Nortriptyline) 25 Mg Capsule 25 MG PO HS Omeprazole (Omeprazole) 40 Mg Capsule.dr 40 MG PO DAILY Prednisone (PredniSONE) 5 Mg Tab 5 MG PO DAILY Ranitidine (Zantac) 150 Mg Tablet 150 MG PO BID Sevelamer Carbonate (Renvela) 800 Mg Tablet 2,400 MG PO TIDWM Tacrolimus (Tacrolimus) 1 Mg Capsule 1 MG PO BID Scheduled PRN Ondansetron (Ondansetron) 4 Mg Tablet 4 MG PO QID PRN PRN For Nausea General Time Seen by MD: 22:11 Chief Complaint Other (Shortness of breath) Hx Obtained From: Patient Arrived By: Walk-in Sudden in Onset?: No Onset Occurred: 2 days ago Symptom Duration: Since onset Recent Healthcare: Recent doctor visit, Recent hospitalization Similar Sx Previous: Yes Past Medical History Past Medical History Notes: Supervisor Delivery Department: Dr. Ra Dickens and Dr. Mckeon Sprinkler Helper: Dr. Jc Past Medical History 1. End-stage renal disease--dialysis dependent with poor clearance and chronic uremia, 2. Hypertension with hypertensive heart disease and hypertensive nephrosclerosis. 3. Membranoproliferative glomerulonephritis diagnosed by kidney biopsy in 1998, Status post renal transplantation in [place] 2004, failed. b. Fistula placement in left upper extremity February 2003, with previous attempted failed right-sided fistula. 4. Prednisone-induced diabetes mellitus, insulin requiring, diagnosed in September 2005. a. Admission in 2008 for DKA. 5. G3, P2, with one miscarriage. 6. GERD. 7. Allergic rhinitis. 8. Acute on chronic anemia 9. 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 Lower extremity vascular disease Past Surgical History Renal transplant, [facility], [place], operated by [facility], 2004 Fistula placement, 2008 Placement of peritoneal dialysis catheter. Right foot digital disarticulation 1 through 5 and transmetatarsal incision wound closure Reports: Tubal ligation Family History non-contributory Smoking History Never Smoker Social History Alcohol Use: Denies alcohol use Drug Use: Denies drug use Other Social History: Good social support, Local resident Ambulatory Status Independent Review of Systems Full Review of Systems Constitutional: Denies: Fever Respiratory: Reports: Shortness of breath Cardiovascular: Denies: Chest pain GI: Denies: Abdominal pain, Nausea, Vomiting Musculoskeletal: Denies: Back pain, Neck pain Skin: Denies Rash Complete sys rev & neg: except as marked. Physical Exam Vital Signs Vital Signs Date Time Temp Pulse Resp B/P Pulse Ox O2 Delivery O2 Flow Rate FiO2 10/07/16 01:48 93 16 189/96 99 Room Air 10/06/16 23:50 91 21 98 Room Air 10/06/16 21:05 36.3 99 16 197/96 100 Room Air Initial VS: Reviewed, Vital signs abnormal General/Constitutional: Awake, Alert shunt site appears well facial puffiness Head / Eyes: Atraumatic, Normocephalic, PERRL, EOMI ENT: Atraumatic, Airway patent, Mucous membranes moist Neck: Atraumatic, Supple, Full range of motion Respiratory / Chest: Atraumatic, Breath sounds NL, Breath sounds = bilat, No respiratory distress Cardiovascular: Regular rhythm, Heart sounds NL mild tachycardia Abdomen: Atraumatic, Soft mild tenderness in RUQ, baseline Back: Atraumatic, Full range of motion Upper Extremities Upper Extremity / MS: Atraumatic, Full range of motion, No edema Lower Extremity / Pelvis / MS: Atraumatic, Full range of motion, No edema Skin: Atraumatic, Color NL, No rash, Warm, Dry Neurologic: Oriented X3, Speech NL, No motor deficits, No sensory deficits Psychiatric: Affect NL, Mood NL Interpretation & Diagnostics Lab Results Interpretation Result Diagram: 10/06/16 2355 10/06/16 2355 Test 10/06/16 23:55 White Blood Count 5.5th/mm3 (3.8-10.1) Red Blood Count 3.59mil/mm3 (3.90-5.20) Hemoglobin 10.1g/dL (12.0-15.6) Hematocrit 31.7% (35.0-46.0) Mean Corpuscular Volume 88.3fL (81-100) Mean Corpuscular Hemoglobin 28.1pg (27.0-35.0) Mean Corpuscular Hemoglobin Concent 31.9% (32.0-37.0) Red Cell Distribution Width 14.9% (12.3-15.4) Platelet Count 156bil/L (150-400) Neutrophils (%) (Auto) 62.5% (40-74) Lymphocytes (%) (Auto) 21.4% (14-46) Monocytes (%) (Auto) 10.5% (4-12) Eosinophils (%) (Auto) 4.0% (0-5) Basophils (%) (Auto) 0.7% (0-3) Sodium Level 140mEq/L (134-144) Potassium Level 5.0mEq/L (3.5-5.2) Chloride Level 95mEq/L (97-108) Carbon Dioxide Level 25mmol/L (18-29) Blood Urea Nitrogen 61mg/dL (6-20) Creatinine 6.09mg/dL (0.57-1.00) Estimat Glomerular Filtration Rate 12mL/min (>59) Glucose Level 355mg/dL (60-99) Calcium Level 8.7mg/dL (8.5-10.1) Magnesium Level 2.3mg/dL (1.6-2.6) Total Bilirubin 0.3mg/dL (0.0-1.2) Aspartate Amino Transf (AST/SGOT) 19U/L (0-50) Alanine Aminotransferase (ALT/SGPT) 17U/L (0-32) Alkaline Phosphatase 122U/L (25-150) Troponin T 0.097ug/L (0.0-0.011) Total Protein 6.4g/dL (6.4-8.4) Albumin 4.2g/dL (3.4-5.0) Hold Soliman Top Tube Received (Received) Lab Results Interpretation: Elevated blood glucose, normal potassium. All other values as expected. ECG Interpretation ECG Interpretation: sinus tachycardia with a rate of 100 Time: 22:45 Interpreted by: ED physician X-Ray Chest Interpretation Chest Xray Interpretation: no acute findings unchanged from previous dated 09/07/2016 Interpretation / Wet Read by: Wet read ED physician Re-Eval/Medical Decision Med Decision/Clinical Course 26-year-old female who dialyzes on Saturday. The last couple of runs they have taken off less fluid and she feels puffy an fluid overloaded. She is not having significant respiratory distress and there is no hypoxemia. No evidence of CHF on her chest x-ray. Her potassium is within normal limits. Her case was discussed with Dr. Hilton. She will be discharged home to follow up Saturday morning for dialysis as scheduled. She does not currently meet requirements for inpatient emergent hemodialysis. Source of Hx: Old records Time of Eval: 01:13 Patient Status: Condition improved Re-Evaluation/Progress Note: Pt rechecked, who is resting comfortably. She is informed of her lab and radiology results as well as the plan for nephrology consultation. Time of Eval: 01:20 Patient Status: Condition improved Re-Evaluation/Progress Note: Pt rechecked and informed of consultation and diagnosis. The plan for discharge is discussed. The pt understands and agrees with the plan. All questions are addressed at this time. Consultation : Referral / Consult Name: Elodia Mckeon MD Consulted With: Nephrology Call Returned at: 01:17 Note: Consulted with Dr. Mckeon, pt's teacher of the deaf/hard of hearing, regarding pt's case. Dr. Mckeon recommends discharge. Given lack of high K, low O2,and clinical evidence of CFH, Dr. Mckeon does not recmmend dialysis at this time. Counseled Regarding: Diagnosis, Lab results, Need for follow-up, When/why to return to ED Discharge & Departure Primary Impression: Fluid overload Hypervolemia type: other Qualified Code: E87.79 - Other fluid overload Additional Impressions: Chronic renal failure Chronic kidney disease stage: stage 5 Qualified Code: N18.5 - Chronic kidney disease, stage 5 Hemodialysis patient Hyperglycemia Disposition: Home Discharge Condition All VS Reviewed: Yes Condition: Stable Additional Instructions: Your case was discussed with Dr. Mckeon. He does not feel that emergent dialysis is necessary at this time but would like you to keep your scheduled dialysis appointment 06Saturday morning. Your blood sugar is high. Use your sliding scale as soon as you get home. Your potassium is normal. Referrals: Neelima Dumont (PCP) Scribe Attestation Portions of this note were transcribed by Yaquelin Wong. I, Dr. Cabrera personally performed the history, physical exam and medical decision-making; I reviewed and confirmed the accuracy of the information in the transcribed note. Signed by: Philip Frazier, 10/07/2016 and 0130. copies to: Neelima Dumont Howard L MD Oct 06, 2016 22:16 YAQUELIN WONG Oct 06, 2016 22:36
[2016-10-06 23:50] VITALS: PULSE 91; RESP 21; O2SAT 98
[2016-10-07 00:02] LABS: BASOPHILS % (AUTO) 0.7 % (0-3); MONOCYTES % (AUTO) 10.5 % (4-12); Mean Corpuscular Hemoglobin 28.1 pg (27.0-35.0); Mean Corpuscular Volume 88.3 fL (81-100); NEUTROPHILS % (AUTO) 62.5 % (40-74); Platelet Count 156 bil/L (150-400)
[2016-10-07 00:50] LABS: Magnesium 2.3 mg/dL (1.6-2.6); TROPONIN T 0.097 ug/L (0.0-0.011)
[2016-10-07 01:48] VITALS: BP 189/96; PULSE 93; RESP 16; O2SAT 99
--- NOTE | 2016-10-07 06:06 | DRSVH ---
PROCEDURE: X-RAY CHEST ONE VIEW, PORTABLE ([id number]) INDICATIONS: 26 year-old female with fluid overload. TECHNIQUE: One view of the chest was acquired. COMPARISON: [facility], CR, XR CHEST 1VW (PORTABLE), 09/07/2016, 3:38. [facility], CR, XR CHEST 1VW (PORTABLE), 08/03/2016, 21:13. [facility], CR, XR CHEST 1VW (POR TABLE), 07/31/2016, 23:40. FINDINGS: Surgical changes and devices: None. Lungs and pleura: No pleural effusions or pneumothorax. Lungs are clear. Mediastinum: Mediastinal contours appear normal. Heart size is normal given AP technique. Bones and chest wall: No suspicious bony lesions. Overlying soft tissues appear unremarkable. IMPRESSION: No pulmonary edema to suggest fluid overload. Dictated by: Spencer Rolon M.D. on 10/07/2016 at 6:04 Approved by: Spencer Rolon M.D. on 10/07/2016 at 6:05
[2016-11-05] MEDS ORDERED: INSU100V7 SUBQ ×2 (09:59)
== END 2016-10-07 01:50 | disposition home or self-care (01) ==
LOC: SED 21:02
DX: E87.79 Other fluid overload (principal); I12.0 Hypertensive chronic kidney disease with stage 5 chronic kidney disease or end stage renal disease; E09.65 Drug or chemical induced diabetes mellitus with hyperglycemia; T38.0X5A Adverse effect of glucocorticoids and synthetic analogues, initial encounter; N18.6 End stage renal disease; E09.22 Drug or chemical induced diabetes mellitus with diabetic chronic kidney disease; I11.9 Hypertensive heart disease without heart failure; K21.9 Gastro-esophageal reflux disease without esophagitis; Z99.2 Dependence on renal dialysis; Z94.0 Kidney transplant status; Z88.5 Allergy status to narcotic agent; Z88.8 Allergy status to other drugs, medicaments and biological substances; Z91.041 Radiographic dye allergy status

== ENCOUNTER 2016-10-21 18:03 | Inpatient (IN) | payer MEDICARE, MEDICAID ==
[~2016-10-21] VITALS: Ht 152.4 cm; Wt 62.6 kg
[2016-10-21] VITALS (7 sets, daily range): BP systolic 168–179; BP diastolic 91–106; PULSE 97–132; RESP 16–22; O2SAT 95–100
[2016-10-21 19:07] LABS: BASOPHILS % (AUTO) 0.3 % (0-3); MONOCYTES % (AUTO) 2.3 % (4-12); Mean Corpuscular Hemoglobin 28.4 pg (27.0-35.0); Mean Corpuscular Volume 86.1 fL (81-100); NEUTROPHILS % (AUTO) 85.6 % (40-74); Platelet Count 173 bil/L (150-400)
--- NOTE | 2016-10-21 19:35 | ED.REPORT ---
HPI-General Illness Date of Service Oct 21, 2016 ED Provider: Shelly Chambers MD A 26 year old female with a history of renal failure on dialysis, diabetes, hypertension, anemia, and multiple other medical concerns presents to the ED complaining of weakness. For the last two years, the pt has been experiencing occasional episodes of severe weakness where she is unable to walk or stand. She also experiences difficulty speaking, fatigue, and bilateral arm heaviness. An episode of these symptoms began this morning. She has improved slightly from this point, but is concerned because the symptoms usually resolve within an hour but are still ongoing today. Her last episode was in 03/2017. The pt's last dialysis was two days ago and she has been taking her insulin normally. She has not been evaluated for these symptoms before. Nursing Notes Stated Complaint: WEAKNESS, UNABLE TO WALK Chief Complaint: General Complaint Nursing Notes Reviewed: Yes Allergies: Coded Allergies: Contrast Media (Verified Allergy, Severe, FULL BODY RASH AND HIVES, ) nifedipine (Verified Allergy, Severe, Anaphylaxis, 10/21/16) "Throat closing up; couldn't breathe tramadol (Verified Allergy, Unknown, Rash, 10/21/16) Scheduled Carvedilol (Carvedilol) 25 Mg Tablet 50 MG PO BID Felodipine ER (Felodipine ER) 10 Mg Tab.er.24h 10 MG PO DAILY Hydralazine (Hydralazine) 50 Mg Tablet 50 MG PO Q8H Insulin Aspart (NovoLOG U-100 Pen) 100 Unit/Ml Insuln.pen 1-12 UNITS SC ACHS 151-175 take 1unit 176-200 take 2units 201-225 take 3units 226-250 take 4units 251-275 take 5units 276-300 take 6units 301-325 take 7units 326-350 take 8units 351-375 take 9units 376-400 take 10units >400 take 12units Loratadine (Claritin) 10 Mg Capsule 10 MG PO DAILY Losartan Potassium (Cozaar) 100 Mg Tablet 100 MG PO DAILY Minoxidil (Minoxidil) 2.5 Mg Tablet 2.5 MG PO BID Mycophenolate DR (Mycophenolic DR) 180 Mg Tablet 180 MG PO BID Nortriptyline (Nortriptyline) 25 Mg Capsule 25 MG PO HS Omeprazole (Omeprazole) 40 Mg Capsule.dr 40 MG PO DAILY Prednisone (PredniSONE) 5 Mg Tab 5 MG PO DAILY Ranitidine (Zantac) 150 Mg Tablet 150 MG PO BID Sevelamer Carbonate (Renvela) 800 Mg Tablet 2,400 MG PO TIDWM Tacrolimus (Tacrolimus) 1 Mg Capsule 1 MG PO BID Scheduled PRN Ondansetron (Ondansetron) 4 Mg Tablet 4 MG PO QID PRN PRN For Nausea General Time Seen by MD: 19:33 Chief Complaint Weakness Hx Obtained From: Patient Arrived By: Walk-in Sudden in Onset?: Yes Onset Occurred: 9 - 12 hours ago Symptom Duration: Since onset Recent Healthcare: Recent doctor visit, Recent hospitalization Similar Sx Previous: Yes Past Medical History Past Medical History Notes: Detailer Furniture: Dr. Ra Dickens and Dr. Mckeon [employer] Professor: Dr. Jc Past Medical History 1. End-stage renal disease--dialysis dependent with poor clearance and chronic uremia, 2. Hypertension with hypertensive heart disease and hypertensive nephrosclerosis. 3. 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 b. Fistula placement in left upper extremity February 2003, with previous attempted failed right-sided fistula. 4. Prednisone-induced diabetes mellitus, insulin requiring, diagnosed in September 2005. a. Admission in 2008 for DKA. 5. G3, P2, with one miscarriage. 6. GERD. 7. Allergic rhinitis. 8. Acute on chronic anemia 9. 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 Lower extremity vascular disease Past Surgical History Renal transplant, [facility], 2004 Fistula placement, 2008 Placement of peritoneal dialysis catheter. Right foot digital disarticulation 1 through 5 and transmetatarsal incision wound closure Reports: Tubal ligation Family History non-contributory Smoking History Never Smoker Social History Alcohol Use: Denies alcohol use Drug Use: Denies drug use Other Social History: Good social support, Local resident Ambulatory Status Independent Review of Systems difficulty speaking bilateral arm heaviness Full Review of Systems Constitutional: Reports: Fatigue, Weakness - generalized Cardiovascular: Denies: Chest pain GI: Denies: Abdominal pain, Vomiting Skin: Denies Rash Complete sys rev & neg: except as marked. Physical Exam Vital Signs Vital Signs Date Time Temp Pulse Resp B/P Pulse Ox O2 Delivery O2 Flow Rate FiO2 10/21/16 20:12 100 19 100 Room Air 10/21/16 19:56 132 21 100 Room Air 10/21/16 18:04 36.2 98 16 179/106 95 Room Air Initial VS: Reviewed General/Constitutional: Awake, Alert chronically ill appearing Head / Eyes: Atraumatic, Normocephalic, PERRL, EOMI ENT: Atraumatic, Airway patent, Mucous membranes moist Neck: Atraumatic, Supple, Full range of motion Respiratory / Chest: Atraumatic, Breath sounds NL, Breath sounds = bilat, No respiratory distress Cardiovascular: Heart rate NL, Regular rhythm, Heart sounds NL Abdomen: Atraumatic, Soft, Non-tender Back: Atraumatic, Full range of motion Upper Extremities Upper Extremity / MS: Atraumatic, Full range of motion fistula in LUE Lower Extremity / Pelvis / MS: Atraumatic, Full range of motion Skin: Atraumatic, Color NL, No rash, Warm, Dry Neurologic: Oriented X3, Speech NL, No motor deficits, No sensory deficits Psychiatric: Affect NL, Mood NL Interpretation & Diagnostics Lab Results Interpretation Result Diagram: 10/21/16185810/21/161858 Test 10/21/16 18:59 White Blood Count 7.5th/mm3 (3.8-10.1) Red Blood Count 4.09mil/mm3 (3.90-5.20) Hemoglobin 11.6g/dL (12.0-15.6) Hematocrit 35.2% (35.0-46.0) Mean Corpuscular Volume 86.1fL (81-100) Mean Corpuscular Hemoglobin 28.4pg (27.0-35.0) Mean Corpuscular Hemoglobin Concent 33.0% (32.0-37.0) Red Cell Distribution Width 14.6% (12.3-15.4) Platelet Count 173bil/L (150-400) Neutrophils (%) (Auto) 85.6% (40-74) Lymphocytes (%) (Auto) 9.7% (14-46) Monocytes (%) (Auto) 2.3% (4-12) Eosinophils (%) (Auto) 2.0% (0-5) Basophils (%) (Auto) 0.3% (0-3) Sodium Level 126mEq/L (134-144) Potassium Level 8.2mEq/L (3.5-5.2) Chloride Level 86mEq/L (97-108) Carbon Dioxide Level 18mmol/L (18-29) Blood Urea Nitrogen 85mg/dL (6-20) Creatinine 7.06mg/dL (0.57-1.00) Estimat Glomerular Filtration Rate 10mL/min (>59) Glucose Level 647mg/dL (60-99) Calcium Level 8.4mg/dL (8.5-10.1) Phosphorus Level 6.5mg/dL (2.5-4.9) Magnesium Level 2.4mg/dL (1.6-2.6) Total Bilirubin 0.3mg/dL (0.0-1.2) Aspartate Amino Transf (AST/SGOT) 32U/L (0-50) Alanine Aminotransferase (ALT/SGPT) 40U/L (0-32) Alkaline Phosphatase 192U/L (25-150) Total Protein 6.4g/dL (6.4-8.4) Albumin 4.1g/dL (3.4-5.0) Hold Soliman Top Tube Received (Received) Ketones Negative (Negative) Lab Results Interpretation: blood gas 20:09. pH 7.229/pCO2 45/pO2 49.9/cHCO3- 21.2/cBase -4.7 ECG Interpretation ECG Interpretation: normal sinus rhythm with a rate of [address] elevations Q wave in lead 3 peaked T waves T wave inversion in AVR Time: 19:50 Interpreted by: ED physician Re-Eval/Medical Decision Med Decision/Clinical Course 26-year-old female with extensive past medical history including diabetes, hypertension, end-stage renal disease on Saturday dialysis here with weakness. Differential diagnosis includes but is not limited to hyperkalemia versus DKA versus other electrolyte abnormality versus worried well. Patient's labs returned with hyperkalemia with potassium of 8. I immediately gave her calcium, insulin, and glucose. Additionally, she had an anion gap greater than 20, and bicarbonate was low. She is in DKA. Her pH on VBG was 7.3. She was started on an insulin drip and given hydration. I discussed the case with nephrology Dr. Dickens who came in for emergent dialysis. Patient has been accepted by the hospitalist to the ICU for hyperkalemia and DKA treatment. She is aware and amenable to plan. Source of Hx: Old records Time of Eval: 19:52 Re-Evaluation/Progress Note: Pt rechecked, who is stable. She is informed of her lab results and the plan for dialysis. The plan for admission is discussed. The pt understands and agrees with the plan. All questions were addressed at this time. Consultation #1: Referral / Consult Name: Ra Dickens DO Call Returned at: 19:50 Construction Supervisor/Carpenter: Agrees with eval, Agrees with plan Note: Spoke with Dr. Dickens, exhaust and muffler repairer, regarding pt's case. Dr. Dickens recommends immediate dialysis and agrees to do so himself. Consultation #2: Referral / Consult Name: Ra Dickens DO Call Returned at: 20:03 Construction Supervisor/Carpenter: Agrees with eval Note: Spoke with Dr. Dickens in the ED regarding pt's case. Dr. Dickens agrees with the evaluation. Consultation #3: Referral / Consult Name: Cesilia Johnson DO Consulted With: Hospitalist Call Returned at: 20:17 Construction Supervisor/Carpenter: Agrees with eval, Agrees with plan, Accepts admit Note: Spoke with Dr. Johnson, hospitalist, regarding pt's case. Dr. Johnson agrees with the evaluation and agrees to admit the pt. Counseled Regarding: Diagnosis, Lab results, Need for admission Discharge & Departure Primary Impression: Hyperkalemia Additional Impression: DKA (diabetic ketoacidoses) Disposition: ADMITTED TO HOSPITAL Discharge Condition All VS Reviewed: Yes Condition: Stable Referrals: Neelima Dumont (PCP) Elodia Mckeon MD Crit Care Except Billable Proc Time Spent: 30-74 minutes Services Performed: Patient management by me, Time spent at bedside, Reviewing test results, Reviewing imaging, Discussing patient care, Documentation in record Scribe Attestation Portions of this note were transcribed by Yaquelin Wong. I, Dr. Chambers personally performed the history, physical exam and medical decision-making; I reviewed and confirmed the accuracy of the information in the transcribed note. Signed by: Philip Frazier, 10/21/2016 and 1952. copies to: Neelima Dumont; Elodia Mckeno MD, Rebecca A MD Oct 21, 2016 19:35 YAQUELIN WONG Oct 21, 2016 19:47
[2016-10-21] MEDS ORDERED: Insulin Human REGular-Omnicell 100 Unit/mL SUBQ ONE (19:45)
[2016-10-21] MEDS ORDERED: Albuterol 2.5 mg/3 mL Inhalation Solution NEB ONE (19:45)
[2016-10-21 19:50] LABS: Magnesium 2.4 mg/dL (1.6-2.6); Phosphorus 6.5 mg/dL (2.5-4.9)
[2016-10-21] MEDS ORDERED: Calcium GLUCOnate 10% (Gm) 1 Gm/10 mL Inj IVPUSH PRN (19:50)
[2016-10-21] MEDS ORDERED: 0.9% Sodium Chloride 1,000 ML IV ONE (20:00)
--- NOTE | 2016-10-21 20:13 | ABG ---
DateTimeAnalyzed 20:09:00 -_ pH ____7.299 - 7.350 7.450 pCO2 ___44.5__ -mmHg 35.0 45.0 pO2 ___49.9__ -mmHg 69.0 116 HCO3- ___21.2__ -mmol/L ABE ___-4.7__ -mmol/L tHb ___12.5__ -g/dL O2Hb ___76.2__ -% COHb ____1.6__ -% MetHb ____1.2__ -% sO2 ___78.4__ -% FIO2 ___21.0__ -% Drawn By LT - Date/Time Notified____ 20:13:00 -_ Notified By LT - Notified Whom ___DR. LINK - B 763 -mmHg tO2 ___13.4__ -Vol% Mati test N/A -
[2016-10-21] MEDS ORDERED: Insulin Human REGular Inj 100 UNIT in 0.9% Sodium Chloride-Pha MIX 100 ML IV ONE (20:20)
[2016-10-21] MEDS ORDERED: Polyethylene Glycol (PEG) 17 Gm Powder PO PRN (20:20)
[2016-10-21] MEDS ORDERED: Senna-Docusate 8.6-50 mg Tablet PO PRN (20:20)
--- NOTE | 2016-10-21 21:05 | CONS ---
[address] [address] CONSULTATION REPORT PATIENT: AMIRA ZALDIVAR : 1990 MR#: [id number] ADMIT: 10/21/2016 JOB ID: [id number] DATE OF SERVICE: HISTORY OF PRESENT ILLNESS: The patient is a rather unfortunate 26-year-old female who was admitted to [facility] for acute hyperkalemia and diabetic ketoacidosis. She has a history of end-stage renal disease and renal consultation is being sought for further management of her acute hyperkalemia and end-stage renal disease. The patient is quite well known to me from previous evaluations and has a rather complicated medical history. She has a longstanding history of end-stage renal disease secondary to a failed renal transplant, membranoproliferative GN and insulin-requiring diabetes mellitus secondary to longstanding prednisone use. She normally dialyzes Saturday, Saturday and Saturday, and her last dialysis was on Saturday. She states that one of her children had been sick recently with a cough. For the last several days, she states that she has been having some diarrhea and today has had some progressive weakness to the point were she had considerable difficulty in walking. She was afraid of having acute hyperkalemia and in the emergency department she was found to have a potassium of 8.2. Her glucose was 647. I was contacted and we have made arrangements for her to receive acute dialysis this evening. She states that besides the weakness she has been having some difficulty in speaking, generalized fatigue. When asked if she ever checked her blood sugar, she stated she had not, but had been taking her insulin. PAST MEDICAL HISTORY: Significant for end-stage renal disease, which is dialysis dependent, membranoproliferative GN dating back 18 years, and status post failed renal transplant. Diabetes secondary to medication induced and multiple complications of dialysis including chronic anemia and calciphylaxis. She had been on peritoneal dialysis for about 10 months and was taken off of this because of progressive calciphylaxis. Since starting hemodialysis, she has had aggressive treatment with sodium thiosulfate. She has had some improvement in her calciphylaxis lesions. She also has a history of hypertension with hypertensive heart disease and hypertensive nephrosclerosis, peripheral vascular disease. PAST SURGICAL HISTORY: Is significant for renal transplant, fistula placed, peritoneal dialysis placement, right foot digital disarticulation of toes one through five due to dry gangrene and calciphylaxis. ALLERGIES: She is allergic to: 1. CONTRAST MEDIA. 2. NIFEDIPINE. 3. TRAMADOL. SOCIAL HISTORY: She denies use of alcohol, tobacco, or illicit drugs. REVIEW OF SYSTEMS: Is detailed above. Otherwise she denies any cough, wheezing, rash, or unilateral weakness. MEDICATIONS: At time of my evaluation, include carvedilol, felodipine, hydralazine, insulin, losartan, minoxidil, mycophenolate, nortriptyline, omeprazole, prednisone, Zantac, Renvela and tacrolimus. PHYSICAL EXAMINATION: Revealed a cushingoid 26-year-old white female who is alert and oriented x3, but appeared to have some generalized weakness. There is a healing skin lesion over the lateral aspect of her right orbit consistent with her history of calciphylaxis. HEENT examination: Otherwise was remarkable for pale sclerae. Neck is supple without adenopathy, thyromegaly or jugular venous distention. Lungs are clear to auscultation. Heart is regular and rhythmical with a soft systolic murmur. Abdomen is soft, without any tenderness, rebound, guarding or masses noted. Her bowel sounds are diminished. Extremities did not show any evidence of any clubbing, cyanosis or edema. Skin turgor is good. Sodium in the emergency department was 126, potassium 8.2, chloride of 86, bicarbonate of 18, BUN and creatinine were 85 and 7.1 respectively. Her glucose was 647 and her alkaline phosphatase was elevated at 192. EKG is remarkable only for a mild sinus tachycardia and peaked T-waves. There was no evidence of any intraventricular conduction delay. IMPRESSION: 1. Diabetic ketoacidosis. 2. Hyperkalemia secondary to #1. 3. End-stage renal disease. 4. Metabolic acidosis. 5. Diabetic nephropathy. RECOMMENDATION: I will make arrangements for her to be dialyzed this evening for two hours on a 2 potassium bath and a Revaclear Max dialyzer. We will load her with 1200 of heparin and try to take 1 L of fluid off. I will also make arrangements for her dialysis in the morning. Once again, I would like to thank you for allowing me to participate in the care of this most pleasant, but unfortunate, patient. I will be following her closely with you.
--- NOTE | 2016-10-21 21:36 | PCM.HPMED ---
Subjective Date of Service Oct 21, 2016 Primary Provider: Admitting Physician: Cesilia Johnson DO Primary Care Physician: Neelima Dumont Attending Physician: Cesilia Johnson DO Admit Status: From the Emergency Department Chief Complaint: weakness History of Present Illness: Patient is a 26-year-old female with hypertension, diabetes, GERD, and ESRD secondary to membranoproliferative glomerulonephritis admitted with generalized weakness found to have elevated potassium and elevated glucose. Patient states that she was at home prior to presentation and she became increasingly weak and eventually unable to walk. She mentions that this has happened over the past couple of years to the extent of immobility. Due to concerns of fatigue and possible hyperkalemia she came into the ED for further evaluation where she was found to be hyperkalemic and hyperglycemic. She denies fevers, chills, nausea, vomiting, changes in vision or hearing, chest pain, chest tightness, dyspnea. She does endorse mild diarrhea however this is semiformed and been 4 times over the course of the day. No melena or hematochezia. She has been compliant with medications and using SSI throughout the day. Review of Systems: complete review of systems obtained. positive as per HPI otherwise negative Allergies Coded Allergies: Contrast Media (Verified Allergy, Severe, FULL BODY RASH AND HIVES, ) nifedipine (Verified Allergy, Severe, Anaphylaxis, 10/21/16) "Throat closing up; couldn't breathe tramadol (Verified Allergy, Unknown, Rash, 10/21/16) Home Medications As per recent admit 2/2 Med rec pending Zofran 4mg PRN Mycophenolate 180mg BID Prograf 1mg BID Prednisone 5mg daily Carvedilol 50mg BID Nortriptyline 25mg BID Ranitidine 150mg BID Omeprazole 40mg daily Loratadine 10mg daily Renvela 800mg TIDAC Felodipine 10mg daily . PMH 1. End-stage renal disease--dialysis dependent with poor clearance and chronic uremia 2. Hypertension with hypertensive heart disease and hypertensive nephrosclerosis. 3. 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 b. Fistula placement in left upper extremity February 2003, with previous attempted failed right-sided fistula. 4. Prednisone-induced diabetes mellitus, insulin requiring, diagnosed in September 2005. a. Admission in 2008 for DKA. 5. G3, P2, with one miscarriage. 6. GERD. 7. Allergic rhinitis. 8. Acute on chronic anemia 9. Gangrene of left big toe s/p amputation 10. Lower extremity vascular disease Surgical History Renal transplant, [facility], 2004 Fistula placement, 2009 Placement of peritoneal dialysis catheter Bilateral toes amputations Tubal ligation Family History Mother alive with DM2, dyslipidemia Father unknown . Social History Hx Alcohol Use: No Hx Substance Use: No Hx Tobacco Use: No Smoking Status: Never Smoker Exam Vital Signs Vital Sign - Last Date Time Temp Pulse Resp B/P Pulse Ox O2 Delivery O2 Flow Rate FiO2 10/21/16 20:39 101 22 168/101 100 Room Air 10/21/16 18:04 36.2 Exam General: somnolent but easily arousable, Oriented X3, Cooperative, No acute Distress Eyes: PERRLA, Scleral Anicteric Mouth: Mouth Normal, Mucous Membranes Moist/Steger Neck: Supple, no Thyromegaly, trachea central. Chest & Lungs: CTA bilat, anterior exam, good resp effort Cardiovascular: Normal S1, Normal S2, No Murmurs/Rubs/Gallops, Regular Rate/ Rhythm, (No JVD, no peripheral edema) Pulses: Radial (present and equal), Dorsalis Pedi (present and equal) Abdomen: Soft, no tenderness, not distended, hypoactive bowel tones. Musculoskeletal: Unremarkable. Normal range of motion, no swollen or erythematous joints Extremities: No edema, no cyanosis, no clubbing. Skin: no rashes, ecchymosis Neurological: Grossly neurologically intact, has generalized weakness, Normal Speech, Sensation Intact Lymphatic: Lymph nodes Cervical and Axillary not palpable. Lab and Diagnostics Result Diagram: 10/21/16185810/21/161858 12-lead ECG 10/21/2016 @19:50:46 HR 99, sinus IL 193 QTc 460 Peaked T waves noted. Flipped T waves in AVR Assessment & Plan Patient is a 26-year-old female with hypertension, diabetes, GERD, and ESRD secondary to membranoproliferative glomerulonephritis admitted with generalized weakness found to have elevated potassium and elevated glucose Hyperosmotic hyperglycemic nonketotic state, HHNK -elevated glucose, no ketones, osml >320 -compliant with medications -DKA/HHS insulin gtt protocol -repeat BMP following dialysis -CCU status until resolved Hyperkalemia, acute, POA -ESRD on hemodialysis -hyperkalemia, potassium of 8.2, peaked T waves on EKG -urgent dialysis -patient was given insulin, calcium gluconate, kayexalate, albuterol in ED -repeat BMP following dialysis to reassess Hyponatremia, acute, POA - likely pseudohyponatremia secondary to elevated blood glucose - repeat following dialysis and with am labs End stage renal disease on hemodialysis, present on admission -Regular dialysis on Sat, Sat, Sat -s/p renal transplant 2003 (failed) continue prednisone, mycophenolate, tacrolimus -continue sevelamer -Nephrology consulted, recs appreciated Hypertension, chronic, POA -continue felodipine, carvedilol, hydralazine, losartan, minoxidil following dialysis as appropriate Insulin-dependent type II diabetes. Present on admission -insulin gtt as above -transition to subcutaneous in am GERD, chronic - continue ranitidine and pantoprazole (omeprazole as outpt) Pain Evaluation: Adequate Pain Control VTE Prophylaxis: Sub-Q Heparin (Unfractionated) Resuscitation Status: CPR: Attempt Resuscitation Cesilia Johnson DO Oct 21, 2016 21:36
[2016-10-22] VITALS (13 sets, daily range): BP systolic 145–207; BP diastolic 61–106; PULSE 83–102; RESP 11–18; O2SAT 97–100
[2016-10-22] MEDS ORDERED: Glucose 40% Oral Gel 15 Gm Tube PO PRN (00:55)
--- NOTE | 2016-10-22 01:00 | NUR ---
CCU admit Pt arrived from ER to CCU # 2019 approx at 2200. Upon arrival to CCU pt received HD session urgently. She was also on Insulin gtt DKA protocol. BG monitored. BG dropped to 97 while receiving HD treatment. Pt was asymptomatic. Pt is alert. Snacks provided. Dr. Johnson aware. No new orders . Pt tolerated HD treatment well. No overt complications noted.
--- NOTE | 2016-10-22 01:02 | NUR ---
Dialysis note: 2 hrs tx. 1000 ml net UF. JONAS graft. Pls see DTR for VS details. Qb 400. Heparin prime given. O2 @ 2L via NC on. Tolerated tx, slept at intervals. Graft needle sites clotted w/in 10 min. Report given to Tanner KWAN.
[2016-10-22] MEDS ORDERED: MYCOPHENOLATE 180 MG PO SCH (01:03)
[2016-10-22] MEDS ORDERED: MINOXIDIL 2.5 MG PO SCH (01:11)
--- NOTE | 2016-10-22 06:21 | NUR ---
Transfer Pt is hypertensive (which is chronic problem. She stated her BP 200s/100s). Home meds initiated. BG stable. Pt status downgraded to PCC/Tele. Last BG = 147. No overt complications noted.
[2016-10-22] MEDS: Pantoprazole 40 mg ER24 Tablet PO SCH (07:42)
[2016-10-22] MEDS: Felodipine 5 mg ER24 Tablet PO SCH (07:42)
[2016-10-22] MEDS: predniSONE 5 mg Tablet PO SCH (07:43)
[2016-10-22] MEDS: Insulin LISPRO 300 Unit/3 mL Inj SUBQ SCH ×5 (07:44→21:56)
--- NOTE | 2016-10-22 10:53 | NUR ---
[facility]. -updated [facility]
--- NOTE | 2016-10-22 11:28 | PCM.PNNEPH ---
Subjective Date of Service Oct 22, 2016 Subjective Her blood pressure has improved current one is 169/61. Her blood sugar came down to less than 200. She had an urgent dialysis yesterday given hyperkalemia. UF was 1L. Her current potassium level is 4.6. Exam Vital Signs Vital Sign - Last Date Time Temp Pulse Resp B/P Pulse Ox O2 Delivery O2 Flow Rate FiO2 10/22/16 09:23 93 10/22/16 09:08 169/61 10/22/16 07:37 36.9 18 100 Room Air Intake and Output 10/21/16 10/21/16 10/22/16 Cumulative From/Thru 15:00 23:00 07:00 10/21/16 18:04 - 10/21/16 22:53 Intake Total 1000 ml 1000 ml Output Total 1000 ml 1000 ml Balance 0 ml 0 ml Intake IV Total 1000 ml 1000 ml Output Ultrafiltrate 1000 ml 1000 ml Exam GENERAL: The patient in no apparent distress, and alert and oriented x3. HEENT: Head is normocephalic and atraumatic. Extraocular muscles are intact. Pupils are equal, round, and reactive to light and accommodation. Nares appeared normal. Mouth is well hydrated and without lesions. Mucous membranes are moist. Posterior pharynx clear of any exudate or lesions. NECK: Supple, no elevation of JVD, No carotid bruits. No lymphadenopathy or thyromegaly. LUNGS: Clear to auscultation, equal breath sounds bilaterally, no wheezing, no rhonchi no rales. HEART: Normal S1/S2, Regular rate and rhythm, soft murmurs, rubs or gallops. 2+ pules throughout. ABDOMEN: Soft, nontender, and nondistended. Positive bowel sounds. No hepatosplenomegaly was noted. EXTREMITIES: 1+ edema, bilateral transmetatarsal amputation. Lab and Diagnostics Result Diagram: 10/21/16 1859 10/22/16 0216 12-lead ECG 10/21/2016 @19:50:46 HR 99, sinus AL 193 QTc 460 Peaked T waves noted. Flipped T waves in AVR Plan Impression -End-stage disease on hemodialysis every Saturday was a Saturday -Hyperkalemia secondary to uncontrolled blood sugar, resolved -Pseudo-hyponatremia -Hyperosmotic hyperglycemic nonketotic state -History of membranoproliferative glomerulonephritis status post kidney transplant -Kidney graft failure -Hypertension with hypertensive nephrosclerosis. Plan We will perform a full treatment of hemodialysis today. Fluid removal as tolerated. Reason monitor antihypertensive medications including felodipine, carvedilol, hydralazine, losartan and minoxidil. Continue anti-rejection medications. The rest of management as per primary team. We will monitor along. Trent Patrick MD Oct 22, 2016 11:28
[2016-10-22] MEDS ORDERED: Insulin Human REGular Inj 100 UNIT in 0.9% Sodium Chloride-Pha MIX 100 ML IV SCH (14:30)
[2016-10-22] MEDS ORDERED: Dextrose 5% 0.45% NaCl 1,000 ML IV PRN (14:30)
--- NOTE | 2016-10-22 14:32 | NUR ---
NUTRITION ASSESSMENT Assess: 26 YO F admitted with DKA, hyperkalemia. 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 DIET: Heart healthy, Consistent Carb. PO intake 25% X 1 meal. LABS: BUN 39, Cr 4.08, Glu 171 Ca 8.2 MEDICATIONS: Reviewed. Prednisone, Insulin. GI: No BM noted. SKIN: No issues noted. ANTHROPOMETRICS: 64.3 kg, BMI 27.7 kg/m2 ESTIMATED NEEDS: DIALYSIS Calories: 2219-3459 kcal/day (25-35 kcal/kg BW) Protein: 77-129 g/day (1.2-2.0 g/kg BW) NUTRITION DIAGNOSIS: 1) Increased nutrient needs related to chronic kidney disease as evidenced by need for dialysis. INTERVENTION: 1) No intervention at this time. MONITOR/EVALUATE: PO intake, labs, nutrition status. Follow per moderate nutrition risk guidelines.
--- NOTE | 2016-10-22 16:16 | NUR ---
Social Work Note: Initial Assessment Data& Assessment: EMR reviewed. SW met with pt at bedside to discuss discharge planning, SW role explained. Annie Santana is a 26 year old female admitted on 10/21/2016 for DKA and hyperkaemia. Pt has Medicare and [employer] insurance coverage. Pt sees HARSHA Butcher for primary care. Pt lives in [place] with her family and is independent at baseline. Pt family usually drives pt to appointments. Pt does not use any DME at baseline. Pt does not have HH or SNF hx. Pt does not have LTC insurance or VA benefits. Pt is a M, W, F dialysis pt at [facility]. Pt is active with [facility] for 40hrs weekly. CM is Susan Obrien, clinicals have been faxed. Pt offered DPOA/Advance Directive paperwork but she declined and will follow up with [facility] if she changes her mind. Pt family to transport pt home when medically ready. Pt denies any other needs at this time. SW to continue to follow if any needs arise. Plan: Anticipated discharge home via POV when medically ready with continued [facility] caregiving. Pt denies any other needs at this time. SW to continue to follow if any needs arise. LORENA [place] Addendum: 10/22/16 at 1619 by FABIEN OSHEA Amended: Links added.
--- NOTE | 2016-10-22 18:48 | NUR ---
Blood glucose Pt. hyperglycemic today at lunch. BG 560s. Gave 8 units humalog and provider notified. f/u BG was 522. Insulin gtt ordered and started. Starting BG before insulin gtt start was 405. After 1 nour, BG 209. After another hour BG 110. (see NKDA intervention for record). MD notified of significant gtt. gtt to be continued per protocol. After 45 minutes, pt c/o feeling hypoglycemic. BG checked and it was 55. Insulin gtt stopped and 15 g oral glucose administered. After 15 min, BG was 74. paged. Will follow up with provider.
--- NOTE | 2016-10-22 19:26 | NUR ---
blood glucose/htn: pt. finishing up dialysis, blood glucose 74, was 55 earlier, night hospitalist paged, received order to dc insulin drip and restart ADA/Renal diet. bp was 184/100 will give hydralazine after dialysis.
--- NOTE | 2016-10-22 20:00 | NUR ---
Dialysis note: 4 hrs tx. 4000 ml net UF. JONAS graft. Pls see DTR for VS details. Qb 400. Heparin given. O2 @ 2L via NC on. Tolerated tx, slept at intervals. Graft needle sites clotted w/in 10 min. Report given to Sandra Catherine RN.
--- NOTE | 2016-10-22 20:08 | PCM.PNMED ---
Subjective Date of Service Oct 22, 2016 Subjective Leonard be doing well since overnight, feels better since admission. Tolerated hemodialysis well. Brings in numerous vague complaints not currently present this morning such as intermittent weakness in her legs, but is not currently present. Epigastric pain which she attributes to gastroparesis. He denies any lightheadedness, dizziness, nausea, vomiting, diarrhea, no chest pain. Exam Vital Signs Vital Sign - Last Date Time Temp Pulse Resp B/P Pulse Ox O2 Delivery O2 Flow Rate FiO2 10/22/16 19:37 100 14 188/96 100 Nasal Cannula 2.00 10/22/16 17:03 37.0 Intake and Output 10/21/16 10/21/16 10/22/16 Cumulative From/Thru 14:59 22:59 06:59 10/21/16 18:04 - 10/21/16 22:53 Intake Total 1000 ml 1000 ml Output Total 1000 ml 1000 ml Balance 0 ml 0 ml Intake IV Total 1000 ml 1000 ml Output Ultrafiltrate 1000 ml 1000 ml Exam General: Laying in bed, no apparent distress. HEENT: Normocephalic, atraumatic, EOMI grossly, Cardiovascular: Regular rate and rhythm, no clicks murmurs rubs, peripheral pulses 2/4 equal bilaterally Pulmonary: Clear to auscultation bilaterally, no W/R/R. Abdominal: Soft to palpation, bowel sounds present 4, no hepatosplenomegaly. Negative rebound. Peritoneal dialysis catheter in place right lower abdomen Extremities: No edema appreciated. No tenderness, asymmetry. Patient does not have any toes, surgically amputated bilaterally Neuro: Neurologically grossly intact, strength is equal bilaterally upper and lower extremities. MSK: able to move extremities on their own volition, strength 5 out of 5 equal bilaterally to upper and lower extremities. Lab and Diagnostics Result Diagram: 10/21/169 10/22/16 0216 12-lead ECG 10/21/2016 @19:50:46 HR 99, sinus [place] 193 QTc 460 Peaked T waves noted. Flipped T waves in AVR Assessment & Plan Patient is a 26-year-old female with hypertension, diabetes, GERD, and ESRD secondary to membranoproliferative glomerulonephritis admitted with generalized weakness found to have elevated potassium and elevated glucose #1 Hyperosmotic hyperglycemic nonketotic state, HHNK -elevated glucose, no ketones, osml >320 on admission -compliant with medications -Patient was able to be placed on sliding scale insulin, but sugar above 500, and non-DKA insulin drip was started -Dialysis today, able to remove 4 L - PCC status #2 End stage renal disease on hemodialysis, present on admission, ongoing -Regular dialysis on Mon, Sat, Sat -s/p renal transplant 2003 (failed) continue prednisone, mycophenolate, tacrolimus -continue sevelamer -Nephrology consulted, recs appreciated #3 Hyperkalemia, acute, POA, resolved -ESRD on hemodialysis -hyperkalemia, potassium of 8.2, peaked T waves on EKG on admission, has decreased to 4.6 -urgent dialysis performed, repeat dialysis today -patient was given insulin, calcium gluconate, kayexalate, albuterol in ED -repeat BMP in the morning #4 Hyponatremia, acute, POA, resolved - likely pseudohyponatremia secondary to elevated blood glucose - repeat following dialysis and with am labs #5 Hypertension, chronic, POA -continue felodipine, carvedilol, hydralazine, losartan, minoxidil following dialysis as appropriate #6 Insulin-dependent type II diabetes. Present on admission -insulin gtt as above -Patient did not tolerate transfer to sliding scale insulin. -We will reattempt transition to correctional insulin following second round of dialysis #7 GERD, chronic - continue ranitidine and pantoprazole (omeprazole as outpt) -Responded to 12.5 promethazine by mouth Pain Evaluation: Adequate Pain Control VTE Prophylaxis: Sub-Q Heparin (Unfractionated) VTE Mechanical Devices: Intermittant Pneumatic CD Resuscitation Status: CPR: Attempt Resuscitation Attending Statement The patient was seen and examined together with Dr. Moralez on 10/22/2016 and I agree with the history, exam and plan as outlined in the note above. . Mert Moralez DO Oct 22, 2016 20:08 Nadeem Plunkett MD Oct 26, 2016 07:36
[2016-10-22] MEDS ORDERED: HYDROcodone-APAP 5-325 mg Tablet PO PRN (23:05)
[2016-10-22] MEDS ORDERED: oxyCODONE-Acetamin 5-325 mg Tablet PO PRN (23:20)
[2016-10-23 03:08] VITALS: BP 190/100; PULSE 100; RESP 14; O2SAT 97
--- NOTE | 2016-10-23 03:14 | NUR ---
HTN: pt's blood pressure elevated 170-190's systolic 100's diastolic, pt. states shes not on the same blood pressure medications she on at home.
[2016-10-23 03:52] LABS: Mean Corpuscular Hemoglobin 28.1 pg (27.0-35.0); Mean Corpuscular Volume 89.2 fL (81-100)
[2016-10-23 07:42] VITALS: BP 206/93; PULSE 89; RESP 16; O2SAT 100
[2016-10-23] MEDS: Pantoprazole 40 mg ER24 Tablet PO SCH (08:08)
[2016-10-23] MEDS: Felodipine 5 mg ER24 Tablet PO SCH (08:08)
[2016-10-23] MEDS: predniSONE 5 mg Tablet PO SCH (08:08)
[2016-10-23 08:10] VITALS: PULSE 89
--- NOTE | 2016-10-23 10:30 | NUR ---
Wound Care Wound evaluation orders received, pt seen at bedside. 26 yo female, sees Dr Jc for foot care currently has a non healed TMA of the right foot. There are 2 wounds on the incision line. medial wound is 2 cm L x 1 cm W x 0.2 cm D, distal edge of skin is undermined 0.3 cm, periwound skin is macerated, would bed is fibrin, this was removed partial with sterile q tip, serous drainage is minimal. Lateral wound is 1 cm L x 0.5 cm D x 0.3 cm D, periwound skin is macerated, wound base is fibrinous slough this was removed partial with sterile q tip, drainage is serous and minimal. These wounds do not appear infected, no erythema noted, periwound skin was treated with calmoseptine to protect and aquacell ag was placed over the wounds and taped in place, pt instructed to change dresings q 48 hrs and follow up with Dr Jc in his office.
[2016-10-23] MEDS ORDERED: AMLO10TA3 PO (11:01)
[2016-10-23] MEDS ORDERED: ATEN50TA PO (11:01)
[2016-10-23] MEDS ORDERED: SODI15OR2 PO (11:05)
[2016-10-23 11:11] VITALS: PULSE 95
--- NOTE | 2016-10-23 11:30 | PCM.PNNEPH ---
Subjective Date of Service Oct 23, 2016 Subjective Patient had dialysis yesterday without complications. Ultrafiltration was 4 L. Her blood pressure remains elevated. Blood sugar has been better controlled. Exam Vital Signs Vital Sign - Last Date Time Temp Pulse Resp B/P Pulse Ox O2 Delivery O2 Flow Rate FiO2 10/23/16 11:11 95 10/23/16 07:42 36.9 16 206/93 100 Room Air 10/22/16 19:37 2.00 Intake and Output 10/22/16 10/22/16 10/23/16 Cumulative From/Thru 15:00 23:00 07:00 10/21/16 18:04 - 10/23/16 05:26 Intake Total 220 ml 700 ml 1920 ml Output Total 4000 ml 5000 ml Balance -3780 ml 700 ml -3080 ml Intake Oral 700 ml 700 ml IV Total 220 ml 1220 ml Output Ultrafiltrate 4000 ml 5000 ml # Voids 3 3 # Bowel Movements 0 0 Exam GENERAL: The patient in no apparent distress, and alert and oriented x3. HEENT: Head is normocephalic and atraumatic. Extraocular muscles are intact. Pupils are equal, round, and reactive to light and accommodation. Nares appeared normal. Mouth is well hydrated and without lesions. Mucous membranes are moist. Posterior pharynx clear of any exudate or lesions. NECK: Supple, no elevation of JVD, No carotid bruits. No lymphadenopathy or thyromegaly. LUNGS: Clear to auscultation, equal breath sounds bilaterally, no wheezing, no rhonchi no rales. HEART: Normal S1/S2, Regular rate and rhythm, soft murmurs, rubs or gallops. ABDOMEN: Soft, nontender, and nondistended. Positive bowel sounds. No hepatosplenomegaly was noted. EXTREMITIES: 1+ edema, bilateral transmetatarsal amputation. Lab and Diagnostics Result Diagram: 10/23/16 0320 10/23/16 0320 12-lead ECG 10/21/2016 @19:50:46 HR 99, sinus SC 193 QTc 460 Peaked T waves noted. Flipped T waves in AVR Plan Impression -End-stage disease on hemodialysis every Saturday was a Saturday -Hyperkalemia secondary to uncontrolled blood sugar, resolved -Pseudo-hyponatremia -Hyperosmotic hyperglycemic nonketotic state -History of membranoproliferative glomerulonephritis status post kidney transplant -Kidney graft failure -Hypertension with hypertensive nephrosclerosis. Plan Patient will have dialysis tomorrow for 4 hours. We will add minoxidil 5 mg daily. Continue current blood pressure medications. Patient to be discharged home once her blood pressure is better controlled. Trent Patrick MD Oct 23, 2016 11:30
[2016-10-23 12:00] VITALS: BP 152/89; PULSE 67; RESP 16; O2SAT 100
[2016-10-23] MEDS: Insulin LISPRO 300 Unit/3 mL Inj SUBQ SCH (13:07)
--- NOTE | 2016-10-23 13:32 | PCM.DIMED ---
Mert Moralez DO 10/23/16 1332: Discharge Instructions Date of Service Oct 23, 2016 Dates of Hospitalization Oct 21, 2016 at 20:20 Discharge Diagnosis Discharge Diagnosis Hyperosmotic hyperglycemic nonketotic state, HHNK End stage renal disease on hemodialysis Hyperkalemia Hypertension Insulin-dependent type II diabetes. GERD Pseudo-hyponatremia History of membranoproliferative glomerulonephritis status post kidney transplant Kidney graft failure Medication Instructions You are not receiving any additional medications with your discharge. Diet Low fat, Low Sodium, Heart Healthy, Diabetic, Renal Diet Activity No restrictions Call your provider Fever or Chills, Shortness of breath, Bleeding, Chest pain, Vomitting, Excessive diarrhea, Weakness (unilateral) Patient Instructions Please follow up with your primary care and employment coordinator within one week. Your blood sugar was very high when you came into the hospital and was very high during your stay requiring additional insulin management. Please check your blood sugar with every meal until you see your primary care. If you notice your blood sugar continues to rise, despite insulin, contact your primary care or report to Urgent Care or if necessary the emergency department. Additionally, if you have any of the symptoms that led you to this current hospitalization do not hesitate to report to the ER or call 911 if necessary. Follow-up Provider: Neelima Dumont Follow-up with PCP in: 1 week Provider: Elodia Mckeon MD Follow-up in: 1 week Nadeem Plunkett MD 10/26/16 0737: Discharge Instructions Attending's Statement The patient was seen and examined together with Dr. Moralez on 10/23/2016 and I agree with the history, exam and plan as outlined in the note above. . Mert Moralez DO Oct 23, 2016 13:32 Nadeem Plunkett MD Oct 26, 2016 07:37
[2016-10-23] MEDS ORDERED: Alum-Mag Hydrox-Simeth 30 mL Suspension PO ONE (13:40)
--- NOTE | 2016-10-23 15:50 | NUR ---
Discharge note Patient a/o x 4, denies pain or sob, but c/o indigestion and nausea. Taking diet fair. See vitals. IV SL and tele removed intact. Patient given discharge instructions, medication reconciliation, info on diagnosis. No new prescriptions. All questions answered. Patient taken to the car via wheelchair with all belongings and discharged home with family.
--- NOTE | 2016-10-23 19:26 | PCM.DC.MED ---
Discharge Summary Date of Service Oct 23, 2016 Dates of Hospitalization Date of Hospital Admission Oct 21, 2016 at 20:20 Date of Discharge: Oct 23, 2016 Providers: Admitting Physician: Cesilia Johnson DO Primary Care Physician: Neelima Dumont Attending Physician: Cesilia Johnson DO Diagnosis at Time of Discharge Diagnosis at Time of Discharge Hyperosmotic hyperglycemic nonketotic state, HHNK End stage renal disease on hemodialysis Hyperkalemia Hypertension Insulin-dependent type II diabetes. GERD Pseudo-hyponatremia History of membranoproliferative glomerulonephritis status post kidney transplant Kidney graft failure Procedures ECG 12 Lead 10/21/2016 @19:50:46 HR 99, sinus IA 193 QTc 460 Peaked T waves noted. Flipped T waves in AVR Brief History From admission note: "Patient is a 26-year-old female with hypertension, diabetes, GERD, and ESRD secondary to membranoproliferative glomerulonephritis admitted with generalized weakness found to have elevated potassium and elevated glucose. Patient states that she was at home prior to presentation and she became increasingly weak and eventually unable to walk. She mentions that this has happened over the past couple of years to the extent of immobility. Due to concerns of fatigue and possible hyperkalemia she came into the ED for further evaluation where she was found to be hyperkalemic and hyperglycemic. She denies fevers, chills, nausea, vomiting, changes in vision or hearing, chest pain, chest tightness, dyspnea. She does endorse mild diarrhea however this is semiformed and been 4 times over the course of the day. No melena or hematochezia. She has been compliant with medications and using SSI throughout the day." Hospital Course Patient is a 26-year-old female with hypertension, diabetes, GERD, and ESRD secondary to membranoproliferative glomerulonephritis admitted with generalized weakness found to have elevated potassium and elevated glucose, received 2 rounds of dialysis and required insulin drip, upon stabilization patient was discharged. #1 Hyperosmotic hyperglycemic nonketotic state, HHNK -elevated glucose, no ketones, osml >320 on admission -compliant with medications -Patient was able to be placed on sliding scale insulin, but sugar above 500, and non-DKA insulin drip was necessary on hospital day 2, she was able to be discharged on home insulin schedule on hospital day 3 -Dialysis 2 #2 End stage renal disease on hemodialysis, present on admission, ongoing -Regular dialysis on Mon, Wed, Sat -s/p renal transplant 2003 (failed) continue prednisone, mycophenolate, tacrolimus -continue sevelamer -Nephrology consulted during hospital stay, dialysis was performed 2 #3 Hyperkalemia, acute, POA, resolved -ESRD on hemodialysis -hyperkalemia, potassium of 8.2, peaked T waves on EKG on admission, has decreased to 3.7 on discharge -urgent dialysis performed -patient was given insulin, calcium gluconate, kayexalate, albuterol in ED #4 Hyponatremia, acute, POA, resolved - likely pseudohyponatremia secondary to elevated blood glucose - 145 on day of discharge #5 Hypertension, chronic, POA -Received felodipine, carvedilol, hydralazine, losartan, in patient -Restarted on home medications on day of discharge #6 Insulin-dependent type II diabetes. Present on admission -insulin gtt as above -Was able to tolerate home insulin dosing following second round of dialysis. #7 GERD, chronic - continue ranitidine and pantoprazole (omeprazole as outpt) -Responded to 12.5 promethazine by mouth Exam Vital Signs (Last) Date Time Temp Pulse Resp B/P Pulse Ox O2 Delivery O2 Flow Rate FiO2 10/23/16 12:00 37.1 67 16 152/89 100 Room Air 10/22/16 19:37 2.00 Exam General: Laying in bed, no apparent distress. HEENT: Normocephalic, atraumatic, EOMI grossly, Cardiovascular: Regular rate and rhythm, no clicks murmurs rubs, peripheral pulses 2/4 equal bilaterally Pulmonary: Clear to auscultation bilaterally, no W/R/R. Abdominal: Soft to palpation, bowel sounds present 4, no hepatosplenomegaly. Negative rebound. Peritoneal dialysis catheter in place right lower abdomen Extremities: No edema appreciated. No tenderness, asymmetry. Patient does not have any toes, surgically amputated bilaterally Neuro: Neurologically grossly intact, strength is equal bilaterally upper and lower extremities. MSK: able to move extremities on their own volition, strength 5 out of 5 equal bilaterally to upper and lower extremities. Test 10/21/16 18:59 10/23/16 03:20 Neutrophils (%) (Auto) 85.6% (40-74) Lymphocytes (%) (Auto) 9.7% (14-46) Monocytes (%) (Auto) 2.3% (4-12) Eosinophils (%) (Auto) 2.0% (0-5) Basophils (%) (Auto) 0.3% (0-3) Osmolality 342 (275-300) Phosphorus Level 6.5mg/dL (2.5-4.9) Magnesium Level 2.4mg/dL (1.6-2.6) Hold Soliman Top Tube Received (Received) Ketones Negative (Negative) White Blood Count 6.4th/mm3 (3.8-10.1) Red Blood Count 4.24mil/mm3 (3.90-5.20) Hemoglobin 11.9g/dL (12.0-15.6) Hematocrit 37.8% (35.0-46.0) Mean Corpuscular Volume 89.2fL (81-100) Mean Corpuscular Hemoglobin 28.1pg (27.0-35.0) Mean Corpuscular Hemoglobin Concent 31.5% (32.0-37.0) Red Cell Distribution Width 15.1% (12.3-15.4) Platelet Count 216bil/L (150-400) Sodium Level 145mEq/L (134-144) Potassium Level 3.7mEq/L (3.5-5.2) Chloride Level 99mEq/L (97-108) Carbon Dioxide Level 30mmol/L (18-29) Blood Urea Nitrogen 18mg/dL (6-20) Creatinine 3.05mg/dL (0.57-1.00) Estimat Glomerular Filtration Rate 26mL/min (>59) Glucose Level 76mg/dL (60-99) Calcium Level 8.6mg/dL (8.5-10.1) Total Bilirubin 0.4mg/dL (0.0-1.2) Aspartate Amino Transf (AST/SGOT) 24U/L (0-50) Alanine Aminotransferase (ALT/SGPT) 36U/L (0-32) Alkaline Phosphatase 167U/L (25-150) Total Protein 5.9g/dL (6.4-8.4) Albumin 4.1g/dL (3.4-5.0) Discharge Medications Discharge Medications Amlodipine (Amlodipine) 10 Mg Tablet 10 MG PO HS (Reported) Atenolol (Atenolol) 50 Mg Tablet 50 MG PO HS (Reported) Carvedilol (Carvedilol) 25 Mg Tablet 50 MG PO BID (Reported) Felodipine ER (Felodipine ER) 10 Mg Tab.er.24h 10 MG PO DAILY (Reported) Insulin Aspart (NovoLOG U-100 Pen) 100 Unit/Ml Insuln.pen 1-12 UNITS SC ACHS ( Reported) 151-175 take 1unit 176-200 take 2units 201-225 take 3units 226-250 take 4units 251-275 take 5units 276-300 take 6units 301-325 take 7units 326-350 take 8units 351-375 take 9units 376-400 take 10units >400 take 12units Loratadine (Claritin) 10 Mg Capsule 10 MG PO DAILY (Reported) Losartan Potassium (Cozaar) 100 Mg Tablet 100 MG PO DAILY Prescribed by: ROSA MARQUIS DO Minoxidil (Minoxidil) 2.5 Mg Tablet 2.5 MG PO BID Prescribed by: ROSA MARQUIS DO Mycophenolate DR (Mycophenolic DR) 180 Mg Tablet 180 MG PO BID (Reported) Nortriptyline (Nortriptyline) 25 Mg Capsule 25 MG PO HS (Reported) Omeprazole (Omeprazole) 40 Mg Capsule.dr 40 MG PO DAILY (Reported) Prednisone (PredniSONE) 5 Mg Tab 5 MG PO DAILY (Reported) Ranitidine (Zantac) 150 Mg Tablet 150 MG PO BID (Reported) Sevelamer Carbonate (Renvela) 800 Mg Tablet 2,400 MG PO TIDWM (Reported) Sodium Polystyrene Sulfonate (Kionex) 15 Gm/60 Ml Oral.susp 30 GM PO WEEKLY ( Reported) Tacrolimus (Tacrolimus) 1 Mg Capsule 1 MG PO BID (Reported) As needed Ondansetron (Ondansetron) 4 Mg Tablet 4 MG PO QID PRN PRN For Nausea (Reported) Additional med instructions You are not receiving any additional medications with your discharge. Followup Plan Discharge Diet: Low fat, Low Sodium, Heart Healthy, Diabetic, Renal Diet Discharge Activity: No restrictions Patient Instructions Please follow up with your primary care and carpenters within one week. Your blood sugar was very high when you came into the hospital and was very high during your stay requiring additional insulin management. Please check your blood sugar with every meal until you see your primary care. If you notice your blood sugar continues to rise, despite insulin, contact your primary care or report to Urgent Care or if necessary the emergency department. Additionally, if you have any of the symptoms that led you to this current hospitalization do not hesitate to report to the ER or call 911 if necessary. Follow-up Provider: Neelima Dumont Follow-up with PCP in: 1 week Provider: Elodia Mckeon MD Follow-up in: 1 week Time spent Greater than 30 minutes was spent in preparation of discharge with greater than 50% of that time dedicated to patient counseling and coordination of care. . Attending Statement The patient was seen and examined together with Dr. Moralez on 10/23/2016 and I agree with the history, exam and plan as outlined in the note above. . copies to: Neelima Dumont; Elodia Mckeon MD, Noah M DO Oct 23, 2016 19:26 Nadeem Plunkett MD Oct 26, 2016 07:37
[2016-11-05] MEDS ORDERED: INSU100V7 SUBQ ×2 (09:59)
== END 2016-10-23 15:55 | disposition home or self-care (01) | DRG 637 ==
LOC: SED 18:03 → CCU 20:20 → PCC 10-22 05:16
PROVIDERS: ADMIT Internal Medicine; ATTEND Internal Medicine
PROC: 4A033B1 Measurement of Arterial Pressure, Peripheral, Percutaneous Approach (ICD-10-PCS; 2016-10-21)
PROC: 5A1D00Z (ICD-10-PCS; principal; 2016-10-22)
DX: E11.00 Type 2 diabetes mellitus with hyperosmolarity without nonketotic hyperglycemic-hyperosmolar coma (NKHHC) (principal); N18.6 End stage renal disease; I12.0 Hypertensive chronic kidney disease with stage 5 chronic kidney disease or end stage renal disease; T86.12 Kidney transplant failure; E87.1 Hypo-osmolality and hyponatremia; E83.59 Other disorders of calcium metabolism; E87.5 Hyperkalemia; E11.21 Type 2 diabetes mellitus with diabetic nephropathy; K21.9 Gastro-esophageal reflux disease without esophagitis; J30.9 Allergic rhinitis, unspecified; E11.51 Type 2 diabetes mellitus with diabetic peripheral angiopathy without gangrene; Z99.2 Dependence on renal dialysis; T38.0X5S Adverse effect of glucocorticoids and synthetic analogues, sequela; Z79.4 Long term (current) use of insulin; Z89.412 Acquired absence of left great toe; Z89.422 Acquired absence of other left toe(s); Z89.421 Acquired absence of other right toe(s)

== ENCOUNTER 2016-10-30 10:51 | Day surgery (SDC) | payer MEDICARE, MEDICAID ==
[~2016-10-30] VITALS: Ht 152.4 cm; Wt 62.1 kg
[~2016-10-30 10:51] MED LIST changes: +0.9% Sodium Chloride 500 ML IV SCH; +AMLO10TA3 PO; +ATEN50TA PO; +CeFAZolin 2 Gm/50 mL D5W IV Premix IV SCH; -HYDR-3940 PO; -LON25 PO; -LOSA100T3 PO; +SODI15OR2 PO
[2016-10-30 11:24] VITALS: BP 153/87; PULSE 71; RESP 16; O2SAT 97
[2016-10-30] MEDS ORDERED: CeFAZolin Inj 2 gm / 50mL D5W IV ONE (11:42)
[2016-11-05] MEDS ORDERED: INSU100V7 SUBQ ×2 (09:59)
== END 2016-10-30 23:59 | disposition home or self-care (01) ==
LOC: SAS 10:51
PROVIDERS: ATTEND Surgery
DX: T85.611A Breakdown (mechanical) of intraperitoneal dialysis catheter, initial encounter (principal); I12.0 Hypertensive chronic kidney disease with stage 5 chronic kidney disease or end stage renal disease; E11.22 Type 2 diabetes mellitus with diabetic chronic kidney disease; E11.65 Type 2 diabetes mellitus with hyperglycemia; N18.6 End stage renal disease; Z99.2 Dependence on renal dialysis; Z79.4 Long term (current) use of insulin; Z53.09 Procedure and treatment not carried out because of other contraindication
CPT/HCPCS: 36415; 84132; J7040

== ENCOUNTER 2016-11-06 08:36 | Day surgery (SDC) | payer MEDICARE, MEDICAID ==
--- NOTE | 2016-11-05 12:02 | PCM.ANEPRE ---
Anesthesia Pre-Op Review Reason for Review: case cx last week due to bs, review current info Anesthesia Recommendations: Proceed with Procedure Additional Comments Pt's surgery was canceled 10/30/16 due to blood sugar of 400. At that time patient had been discontinued off her Lantus; In a follow-up note dated 10/31/16 , it states patient endorses better glycemic control on Lantus. She appears to have been restarted on Lantus 20units qAM 40units qPM with sliding scale regular insulin. I presume her blood sugars should be improved having added Lantus back to her regimen. Can proceed without additional workup or interventions at this time. Final determination as to whether she is optimized for surgery will depend on her blood sugar levels day of surgery. Chart Reviewed by: Jack Jj MD, MD Nov 05, 2016 12:02
[2016-11-06] VITALS (9 sets, daily range): BP systolic 143–174; BP diastolic 80–95; PULSE 63–81; RESP 12–18; O2SAT 93–100
[~2016-11-06] VITALS: Ht 152.4 cm; Wt 67.5 kg
[~2016-11-06 08:36] MED LIST changes: +0.9% Sodium Chloride 1,000 ML IV SCH; -0.9% Sodium Chloride 500 ML IV SCH; +CeFAZolin 2 Gm/50 mL D5W IV Premix IV ONE; -CeFAZolin 2 Gm/50 mL D5W IV Premix IV SCH; +INSU100V7 SUBQ; -SODI15OR2 PO
[2016-11-06] MEDS ORDERED: Ondansetron 2 mg/mL 2 mL Inj ONE (08:37)
[2016-11-06] MEDS ORDERED: Propofol 10,000 mCg/mL 20 mL Inj ONE (08:37)
[2016-11-06] MEDS ORDERED: CeFAZolin Inj 2 gm / 50mL D5W IV ONE (08:41)
--- NOTE | 2016-11-06 08:54 | PCM.HPANE ---
Patient Data Surgeon Admitting Provider: Attending Provider:Josemanuel Tang MD Primary Care Physician:Neelima Dumont Other Provider:BakariocYojana Anesthesia Reason for Visit Dysfunctional Peritoneal Dialysis Catheter Ht/WT & BMI Weight (Kilograms): 63 Body Mass Index .00 Allergies Coded Allergies: Contrast Media (Verified Allergy, Severe, FULL BODY RASH AND HIVES, ) nifedipine (Verified Allergy, Severe, Anaphylaxis, 10/21/16) "Throat closing up; couldn't breathe tramadol (Verified Allergy, Unknown, Rash, 10/21/16) Past Anesthesia History Anesthesia History: Denies:: Abnormal Airway, Anesthesia Reactions, Difficult Intubation, Fam Anesthesia Reaction, Fam Malignant Hypertherm, Malignant Hyperthermia Diabetes History Hx Diabetes?: Yes Glycemic Control: Insulin Dependent Current Bedside Blood Glucose: 36 MRSA MRSA: No Medications Blood Thinner: Aspirin Hypertension Medication: Yes Home Meds Incl Beta Akin: Yes Date Beta Akin Taken: Nov 06, 2016 Time Beta Akin Taken: 08:00 Reported Medications Insulin Glargine (Lantus U100 Insulin Vial)100 Unit/Ml Vial40 Unit SUBQ QPM #1 VIAL Ref 0 11/05/16 Insulin Glargine (Lantus U100 Insulin Vial)100 Unit/Ml Vial20 Unit SUBQ QAM #1 VIAL Ref 0 11/05/16 Atenolol 50 Mg Dqjxso09 Mg PO HS #30 TABLET Ref 0 10/23/16 Amlodipine 10 Mg Jcxttd30 Mg PO HS Ref 0 10/23/16 Insulin Aspart (NovoLOG U-100 Pen)100 Unit/Ml Insuln.pen1-12 Units SC ACHS 151-175 take 1unit 176-200 take 2units 201-225 take 3units 226-250 take 4units 251-275 take 5units 276-300 take 6units 301-325 take 7units 326-350 take 8units 351-375 take 9units 376-400 take 10units >400 take 12units 09/10/16 Ondansetron 4 Mg Tablet4 Mg PO QID PRN For Nausea 09/10/16 Felodipine ER 10 Mg Tab.er.24h10 Mg PO DAILY Ref 0 09/10/[address] (Mycophenolic DR)180 Mg Wyeeup015 Mg PO BID 09/10/16 Sevelamer Carbonate (Renvela)800 Mg Tablet2,400 Mg PO TIDWM 90 Days 06/14/16 Omeprazole 40 Mg Capsule.dr40 Mg PO DAILY 05/19/16 Carvedilol 25 Mg Loidwo12 Mg PO BID 01/13/16 Ranitidine (Zantac)150 Mg Ynmoor415 Mg PO BID 01/13/16 Nortriptyline 25 Mg Wnspdua94 Mg PO HS 11/22/15 Loratadine (Claritin)10 Mg Uqwvjqg51 Mg PO DAILY 05/10/15 Tacrolimus 1 Mg Capsule1 Mg PO BID 02/18/14 Prednisone (PredniSONE)5 Mg Tab5 Mg PO DAILY 02/18/14 History History of ENT Problems?: No HEENT History: Denies:: Abnormal Airway Cataracts Difficult Intubation Dysphagia Hearing Problem Sinus Problem Hx of Heart Problems?: Yes Cardiovascular History: Positive for:: Edema Heart Murmur Hypertension Denies:: AICD Atrial Fibrillation Cardiac Surgery Chest Pain Congestive Heart Failure Irregular Heartbeat Pacemaker Thrombophlebitis Valvular Heart Disease (echo 2015 ef- 70-75%) Hx of Respiratory Problem?: Yes Respiratory History: Positive for:: Pneumonia Denies:: Asthma COPD Chest Surgery Cough Dyspnea Emphysema Hemoptysis Oxygen Administration Tuberculosis Use of C-PAP Machine Hx Neurologic Problems?: No Neurological History: Denies:: Alzheimer's Disease CVA Dementia Dizziness Headaches Parkinson's Disease Seizures Hx of GI Problems?: Yes Gastrointestinal History: Positive for:: Gastroesphageal Reflux Heartburn Denies:: Cirrhosis Diverticulitis Gastrointestinal Bleeding Hepatitis Hiatal Hernia Rectal Bleeding Hx of Problems?: Yes Genitourinary History: Positive for:: HX of Hemodialysis (dialysis 3x week Mon , Wed, Sat , ESRF- last am 11/05/16) Urinary Tract Infection Denies:: Kidney Stones HX of Peritoneal Dialysis: Yes (non functional cath current admission catheter) Female Hx: Positive for:: Problems with Breasts? (left breast is swollen ) Denies:: Currently (hx tubal ligation) Endometriosis Pelvic Inflammatory Skin History: Positive for:: Pressure Ulcers Denies:: History Skin Disorders? Hx Musculoskeletal Problems?: Yes Musculoskeletal History: Positive for:: Musculoskeletal Trauma (periph vasc disease, hx of gangrene, toe amputations ) Denies:: Back Injury Joint Replacement Hx of Psycho/Social Problems?: No Psycho Social History: Denies:: Anxiety Bipolar Disorder Hx Depression Suicide Attempt Hx Surgeries?: Yes (kidney transplant , left partial foot amp, Amp Ltoes 06/20 , Rtoes 07/20) Hx Any Other Health Problems?: Yes Other History: Positive for:: Hospitalization (childbirth, kidney transplant, surgeries) Denies:: Cancer Endocrine Disease Thyroid Disease History Blood Transfusions: Positive for:: Blood Transfusions (jun 2016) Denies:: Blood Transfuse Reaction Hx Diabetes: Yes Hx Alcohol Use: NoHx Substance Use: No Smoking Status: Never Smoker Have You Smoked inLast 12 mo: No Stop/Bang Treated for Sleep Apnea?: No Do You Have a CPAP Machine?: No P-Blood Pressure: treated: No B- Body Mass Index > 35 kg/m2: No A- Age over 50: No N- Neck Large Circumference: No G- Gender Male: No SURYA Risk Assessment: Low Risk, <3 Yes Risk Assessment Category Category 1A: Patient has history of documented sleep apnea, and HAS NOT received any narcotic, sedative or anesthesia administration during this stay. Category 1B: Patient has history of documented sleep apnea, and HAS received any narcotic , sedative or anesthesia administration during this stay Category 2: Patient has SUSPECTED Obstructive Sleep Apnea, and HAS received any narcotic , sedative or anesthesia administration during this stay. Category 3: Patient has SUSPECTED Obstructive Sleep Apnea and HAS NOT received narcotic, sedative or anesthesia administration during this stay. Category 4: Outpatient in Procedural Areas with known sleep apnea or who screen positive for High Risk via the STOP/BANG questionnaire. Exam Exam General Appearance: Alert, Oriented X3, Cooperative, No Acute Distress HEENT/AIRWAY: MP 2 Lungs: Clear to Auscultation, Normal Air Movement Heart: Exam Unremarkable, Regular Rate/Rhythm, No Murmurs/Rubs/Gallops Meds/Labs/Diagnostics Bedside Blood Glucose: 36 (noted and treated with small amount of oral apple juice) Plan Impression Patient chart reviewed, patient interviewed and anesthestic plan with risks, benefits, and alternatives discussed, and informed consent obtained. NPO Status: 10/29/16 ASA Physical Status: ASA3 Severe Disease (brittle end stage diabetic-BS last admit was 400...case cancelled....36 this am, given apple juice and will recheck ) Anesthetic Plan: GA Bene/Risks/Altern/Consents: Yes HP Complete Prior to Induction: Yes Eliecer Mcmullen MD Nov 06, 2016 08:54
[2016-11-06] MEDS: 0.9% Sodium Chloride 500 ML IV SCH ×2 (08:56→10:20)
[2016-11-06] MEDS ORDERED: Bupivacaine 0.5%/EPI 50 mL Inj INFILTRATE ONE (10:55)
[2016-11-06] MEDS ORDERED: HYDROcodone-APAP 5-325 mg Tablet PO PRN (11:15)
[2016-11-06] MEDS ORDERED: Lactated Ringer's 500 ML IV PRN (11:21)
[2016-11-06] MEDS ORDERED: Lactated Ringer's 1,000 ML IV SCH (11:21)
[2016-11-06] MEDS ORDERED: Ondansetron 2 mg/mL 2 mL Inj IVPUSH PRN (11:25)
[2016-11-06] MEDS ORDERED: fentaNYL-PF 50 mCg/mL 2 mL Inj IVPUSH PRN (11:25)
[2016-11-06] MEDS ORDERED: MetoCLOpramide 5 mg/mL 2 mL Inj IVPUSH PRN (11:25)
[2016-11-06] MEDS ORDERED: Phenylephrine 10,000 mCg/mL Inj IVPUSH PRN (11:25)
[2016-11-06] MEDS ORDERED: HYDROmorphone 1 mg/mL Inj IVPUSH PRN (11:25)
[2016-11-06] MEDS ORDERED: EPHEDrine Sulfate 50 mg/mL Inj IVPUSH PRN (11:25)
[2016-11-06] MEDS ORDERED: Dexamethasone 4 mg/mL Inj IVPUSH PRN (11:25)
--- NOTE | 2016-11-06 11:43 | OP ---
[address] [address] OPERATIVE REPORT PATIENT: AMIRA ZALDIVAR : 1990 MR#: [id number] ADMIT: 11/06/2016 JOB ID: [id number] DATE OF SURGERY: 11/06/2016 PREOPERATIVE DIAGNOSIS(ES): Dysfunctional peritoneal dialysis catheter. POSTOPERATIVE DIAGNOSIS(ES): Dysfunctional peritoneal dialysis catheter. PROCEDURE: Remove dysfunctional peritoneal dialysis catheter. SURGEON: Josemanuel Tang MD. LIGHTING DESIGNER: Damion Dumont PA-C INDICATIONS: The patient is a 26-year-old female who has end-stage renal failure. She is now being dialyzed through a left upper arm fistula. She has a peritoneal dialysis catheter that is not being used, and after discussing options with the patient, it was elected to remove it. FINDINGS: The catheter was removed intact. There were three cuffs on the catheter. They were all removed. DESCRIPTION OF PROCEDURE: At the beginning and end of the operation, a SCOAP checklist was completed. An LMA anesthetic was induced and using Betadine she was prepped and draped in the usual fashion. She received local anesthesia with 0.5% bupivacaine with epinephrine. This catheter was placed at another institution but I had read the operative report and it was placed through a 12 mm trocar. That trocar site could be identified. It was anesthetized with local anesthesia, opened and then the catheter identified. With traction it turned out there were three separate Rd cuffs. All were removed intact with sharp and blunt dissection, and upon freeing up the deepest cuff, then the entire catheter was removed from the peritoneal cavity. At the conclusion, there was no residual catheter or cuff left. The deep tract was ligated with 3-0 Vicryl. The subcutaneous tissue closed with interrupted 3-0 Vicryl, skin with subcuticular 4-0 Vicryl. The external exit site had umbilicated as is typical. The umbilicated skin was excised after injecting local anesthesia. This wound was left open and just a dressing applied. Over the trocar site incision, the wound was closed with Steri-Strips and then a Band-Aid. The estimated blood loss was less than 10 cc. There were no apparent complications. I did not send the catheter to Pathology. The final sponge, needle and instrument counts were announced as correct. The patient returned to recovery room in stable condition. Critical assistance provided by Abad Dumont PA-C.
--- NOTE | 2016-11-07 07:26 | PCM.ANEP1 ---
Post Anesthesia Phase 1 PACU Phase 1 Assessment Anesthetic Administered: GA Level of Alertness: Awake, talking XIONG's with Equal Strength: Yes Pain: No Nausea or Vomiting: No Airway Device: Oralpharangeal Airway Oxygen Delivery: Simple Mask Lungs: Clear to Auscultation, Normal Air Movement Dermatome Level: Full Sensation Eliecer Mcmullen MD Nov 07, 2016 07:26
--- NOTE | 2016-11-07 09:50 | PCM.ANEP2 ---
Post Anesthesia Evaluation ASA/CMS Post Anesthesia VS in Patient's Normal Range?: Yes Resp Stable; Airway Patent?: Yes CV Function & Hydration Stable: Yes Mental Status Recovered?: Yes Pain control Satisfactory?: Yes N/V Control Satisfactory?: Yes Eliecer Mcmullen MD Nov 07, 2016 09:50
== END 2016-11-06 23:59 | disposition home or self-care (01) ==
LOC: SAS 08:36
PROVIDERS: ATTEND Surgery
DX: T85.611A Breakdown (mechanical) of intraperitoneal dialysis catheter, initial encounter (principal); I12.0 Hypertensive chronic kidney disease with stage 5 chronic kidney disease or end stage renal disease; E11.69 Type 2 diabetes mellitus with other specified complication; E11.22 Type 2 diabetes mellitus with diabetic chronic kidney disease; N18.6 End stage renal disease; K21.9 Gastro-esophageal reflux disease without esophagitis; N05.5 Unspecified nephritic syndrome with diffuse mesangiocapillary glomerulonephritis; Z79.4 Long term (current) use of insulin; Z79.82 Long term (current) use of aspirin; Z89.431 Acquired absence of right foot; Z99.2 Dependence on renal dialysis
CPT/HCPCS: 49422; 84132; J0690; J2405; J7040

== ENCOUNTER 2016-11-15 22:32 | Emergency (ER) | payer MEDICARE, MEDICAID ==
[~2016-11-15] VITALS: Ht 152.4 cm; Wt 65.0 kg
[~2016-11-15 22:32] MED LIST changes: -0.9% Sodium Chloride 1,000 ML IV SCH; -CeFAZolin 2 Gm/50 mL D5W IV Premix IV ONE
[2016-11-15 22:36] VITALS: BP 160/89; PULSE 91; RESP 20; O2SAT 100
--- NOTE | 2016-11-16 00:44 | ED.REPORT ---
HPI-General Illness Date of Service Nov 16, 2016 ED Provider: Dr. Castellon A 26 year old female dialysis patient with a history of CKD, diabetes and anemia presents to the ED complaining of pain around incision site from peritoneal dialysis catheter removal. The patient had peritoneal catheter removed on 11/06/2016. Today she felt something pop around the incision site. Associated symptoms include bleeding around incision site with blood that is pink-fady. Nursing Notes Stated Complaint: POST OP INCISION ISSUES Chief Complaint: General Complaint Nursing Notes Reviewed: Yes Allergies: Coded Allergies: Contrast Media (Verified Allergy, Severe, FULL BODY RASH AND HIVES, ) nifedipine (Verified Allergy, Severe, Anaphylaxis, 10/21/16) "Throat closing up; couldn't breathe tramadol (Verified Allergy, Unknown, Rash, 10/21/16) Scheduled Amlodipine (Amlodipine) 10 Mg Tablet 10 MG PO HS Atenolol (Atenolol) 50 Mg Tablet 50 MG PO HS Carvedilol (Carvedilol) 25 Mg Tablet 50 MG PO BID Felodipine ER (Felodipine ER) 10 Mg Tab.er.24h 10 MG PO DAILY Insulin Aspart (NovoLOG U-100 Pen) 100 Unit/Ml Insuln.pen 1-12 UNITS SC ACHS 151-175 take 1unit 176-200 take 2units 201-225 take 3units 226-250 take 4units 251-275 take 5units 276-300 take 6units 301-325 take 7units 326-350 take 8units 351-375 take 9units 376-400 take 10units >400 take 12units Insulin Glargine (Lantus U100 Insulin Vial) 100 Unit/Ml Vial 20 UNIT SUBQ QAM Insulin Glargine (Lantus U100 Insulin Vial) 100 Unit/Ml Vial 40 UNIT SUBQ QPM Loratadine (Claritin) 10 Mg Capsule 10 MG PO DAILY Mycophenolate DR (Mycophenolic DR) 180 Mg Tablet 180 MG PO BID Nortriptyline (Nortriptyline) 25 Mg Capsule 25 MG PO HS Omeprazole (Omeprazole) 40 Mg Capsule.dr 40 MG PO DAILY Prednisone (PredniSONE) 5 Mg Tab 5 MG PO DAILY Ranitidine (Zantac) 150 Mg Tablet 150 MG PO BID Sevelamer Carbonate (Renvela) 800 Mg Tablet 2,400 MG PO TIDWM Tacrolimus (Tacrolimus) 1 Mg Capsule 1 MG PO BID Scheduled PRN Ondansetron (Ondansetron) 4 Mg Tablet 4 MG PO QID PRN PRN For Nausea General Time Seen by MD: 00:44 Chief Complaint Other (Incision site pain) Hx Obtained From: Patient Arrived By: Walk-in Sudden in Onset?: No Onset Occurred: 5 - 8 hours ago Symptom Duration: Since onset Severity: Current: Moderate Severity: Maximum: Moderate Recent Healthcare: Recent doctor visit Similar Sx Previous: No Past Medical History Past Medical History Notes: Sports Clerk: Dr. Ra Dickens and Dr. Mckeon Recruitment Director: Dr. Jc Past Medical History Patient had peritoneal dialysis catheter removed on 11/06/2016. 1. End-stage renal disease--dialysis dependent with poor clearance and chronic uremia, 2. Hypertension with hypertensive heart disease and hypertensive nephrosclerosis. 3. 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 b. Fistula placement in left upper extremity February 2003, with previous attempted failed right-sided fistula. 4. Prednisone-induced diabetes mellitus, insulin requiring, diagnosed in September 2005. a. Admission in 2008 for DKA. 5. G3, P2, with one miscarriage. 6. GERD. 7. Allergic rhinitis. 8. Acute on chronic anemia 9. 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 Lower extremity vascular disease Past Surgical History Renal transplant, [facility], [place], operated by [facility], 2004 Fistula placement, 2008 Placement of peritoneal dialysis catheter. Right foot digital disarticulation 1 through 5 and transmetatarsal incision wound closure Reports: Tubal ligation Family History non-contributory Smoking History Never Smoker Social History Alcohol Use: Denies alcohol use Drug Use: Denies drug use Other Social History: Good social support, Local resident Ambulatory Status Independent Review of Systems Full Review of Systems Constitutional: Denies: Chills, Fever Respiratory: Denies: Non-productive cough GI: Reports: Abdominal pain (Pain and bleeding around catheter incision site) Complete sys rev & neg: except as marked. Physical Exam Vital Signs Vital Signs Date Time Temp Pulse Resp B/P Pulse Ox O2 Delivery O2 Flow Rate FiO2 11/16/16 02:22 90 16 162/94 97 Room Air 11/15/16 22:36 36.4 91 20 160/89 100 Room Air Initial VS: Reviewed General/Constitutional: Awake, Alert Head / Eyes: Atraumatic, Normocephalic, PERRL, EOMI ENT: Atraumatic, Airway patent, Mucous membranes moist Respiratory / Chest: Atraumatic, Breath sounds NL, Breath sounds = bilat, No respiratory distress, No rales, No rhonchi, No wheezing Cardiovascular: Heart rate NL, Regular rhythm, Heart sounds NL, No gallop, No murmurs, No rubs Abdomen: Soft, Non-tender Cellulities to anterior abdominal wall. Induration where catheter removed, mild erythema and induration. Upper Extremities Upper Extremity / MS: Inspection NL, Full range of motion Lower Extremity / Pelvis / MS: No swelling, No edema Skin: Color NL, Warm, Dry Neurologic: Oriented X3, Speech NL Interpretation & Diagnostics Lab Results Interpretation Result Diagram: 11/16/16 0116 Test 11/16/16 01:16 White Blood Count 4.9th/mm3 (3.8-10.1) Red Blood Count 2.99mil/mm3 (3.90-5.20) Hemoglobin 8.4g/dL (12.0-15.6) Hematocrit 26.5% (35.0-46.0) Mean Corpuscular Volume 88.6fL (81-100) Mean Corpuscular Hemoglobin 28.1pg (27.0-35.0) Mean Corpuscular Hemoglobin Concent 31.7% (32.0-37.0) Red Cell Distribution Width 14.2% (12.3-15.4) Platelet Count 140bil/L (150-400) Neutrophils (%) (Auto) 71.9% (40-74) Lymphocytes (%) (Auto) 17.1% (14-46) Monocytes (%) (Auto) 7.8% (4-12) Eosinophils (%) (Auto) 2.4% (0-5) Basophils (%) (Auto) 0.4% (0-3) Hold Soliman Top Tube Received (Received) Re-Eval/Medical Decision Med Decision/Clinical Course Mild anterior abdominal wall cellulitis. I suspect that there may be a seroma associated with the wound. No evidence of sepsis. Benign abdomen. She is afebrile with normal white blood cell count. She is a good candidate for outpatient therapy. Staph and strep coverage. Clindamycin prescribed. Source of Hx: Old records Time of Eval: 00:44 Re-Evaluation/Progress Note: Explained diagnosis, and plan for discharge. Patient understands and agrees with the plan. All questions addressed. Counseled Regarding: Diagnosis, Lab results, Need for follow-up, When/why to return to ED Discharge & Departure Primary Impression: Abdominal wall cellulitis Disposition: Home Patient Instructions: Cellulitis (ED) Additional Instructions: Clindamycin 3 times daily for 7 days. Call your surgeon tomorrow for follow-up appointment. This may need drainage if it forms an abscess of follow-up is essential. Warm compress to the area may help. Come back to her department if you develop a fever or if the redness grows in size or if he has any new or worsening symptoms. She developed any diarrhea while you are taking the clindamycin the need to stop taking the clindamycin and have your stool tested for Clostridium difficile. Usually her oxycodone as prescribed for pain. Referrals: Neelima Dumont (PCP) Josemanuel Tang MD Attestation Portions of this note were transcribed by Gus Jimenez. I, Dr. Castellon personally performed the history, physical exam and medical decision-making; I reviewed and confirmed the accuracy of the information in the transcribed note. Signed by: Philip Ruiz, 11/16/2016, 0238. copies to: aR Dickens DO; Neelima Dumont; Josemanuel Tang MD; Elodia Mckeon MD; Jayjay Jc DPM, Todd P DO Nov 16, 2016 00:44 Gus Jimenez Nov 16, 2016 00:55
[2016-11-16] MEDS ORDERED: HYDROmorphone 1 mg/mL Inj IM ONE (00:55)
[2016-11-16 01:27] LABS: BASOPHILS % (AUTO) 0.4 % (0-3); EOSINOPHILS % (AUTO) 2.4 % (0-5); MONOCYTES % (AUTO) 7.8 % (4-12); Mean Corpuscular Hemoglobin 28.1 pg (27.0-35.0); Mean Corpuscular Volume 88.6 fL (81-100); NEUTROPHILS % (AUTO) 71.9 % (40-74); Platelet Count 140 bil/L (150-400)
[2016-11-16 02:22] VITALS: BP 162/94; PULSE 90; RESP 16; O2SAT 97
== END 2016-11-16 02:22 | disposition home or self-care (01) ==
LOC: SED 22:32
DX: T81.4XXA Infection following a procedure, initial encounter (principal); L03.311 Cellulitis of abdominal wall; Y84.8 Other medical procedures as the cause of abnormal reaction of the patient, or of later complication, without mention of misadventure at the time of the procedure; Y92.9 Unspecified place or not applicable; Y93.89 Activity, other specified; Y99.8 Other external cause status; I13.11 Hypertensive heart and chronic kidney disease without heart failure, with stage 5 chronic kidney disease, or end stage renal disease; N18.6 End stage renal disease; E11.22 Type 2 diabetes mellitus with diabetic chronic kidney disease; K21.9 Gastro-esophageal reflux disease without esophagitis; D64.9 Anemia, unspecified; Z98.890 Other specified postprocedural states; Z79.4 Long term (current) use of insulin; Z99.2 Dependence on renal dialysis; Z94.0 Kidney transplant status; Z91.041 Radiographic dye allergy status; Z88.8 Allergy status to other drugs, medicaments and biological substances; Z88.5 Allergy status to narcotic agent
CPT/HCPCS: 85025; 96372; 99284; J1170

== ENCOUNTER 2016-11-18 19:46 | Emergency (ER) | payer MEDICARE, MEDICAID ==
[~2016-11-18] VITALS: Ht 152.4 cm; Wt 65.0 kg
[2016-11-18 20:09] VITALS: BP 202/113; PULSE 93; RESP 38; O2SAT 84
--- NOTE | 2016-11-18 21:17 | DRSVH ---
PROCEDURE: X-RAY CHEST ONE VIEW, PORTABLE ([id number]) INDICATIONS: SOB TECHNIQUE: One view of the chest was acquired. COMPARISON: [facility], CR, XR CHEST 1VW (PORTABLE), 09/07/2016, 3:38. [facility], CR, XR CHEST 1VW (PORTABLE), 10/06/2016, 22:29. FINDINGS: Surgical changes and devices: None. Lungs and pleura: Shallow inspiration and diffuse interstitial prominence. No pleural effusions or p neumothorax. Mediastinum: Mediastinal contours appear normal. Heart size is normal. Bones and chest wall: No suspicious bony lesions. Overlying soft tissues appear unremarkable. IMPRESSION: Shallow inspiration and diffuse interstitial prominence. Dictated by: Radha Petty M.D. on 11/18/2016 at 21:14 Approved by: Radha Petty M.D. on 11/18/2016 at 21:15
[2016-11-18] MEDS ORDERED: Labetalol 5 mg/mL 4 mL Inj IVPUSH ONE (21:20)
[2016-11-18] MEDS ORDERED: Furosemide 10 mg/mL 10 mL Inj IVPUSH ONE (21:25)
[2016-11-18 21:27] LABS: BASOPHILS % (AUTO) 0.7 % (0-3); EOSINOPHILS % (AUTO) 4.5 % (0-5); MONOCYTES % (AUTO) 4.5 % (4-12); Mean Corpuscular Hemoglobin 28.1 pg (27.0-35.0); Mean Corpuscular Volume 88.3 fL (81-100); NEUTROPHILS % (AUTO) 74.5 % (40-74); Platelet Count 140 bil/L (150-400)
[2016-11-18 21:43] VITALS: BP 190/88; PULSE 110; RESP 28; O2SAT 100
[2016-11-18 22:17] LABS: TROPONIN T 0.136 ug/L (0.0-0.011)
[2016-11-18] MEDS ORDERED: Calcium GLUCOnate 10% (Gm) 1 Gm/10 mL Inj IVPUSH PRN (22:30)
[2016-11-18] MEDS ORDERED: Sodium Polystyrene Sulfonate 0.25 Gm/mL 500 mL Suspension PO ONE (22:30)
[2016-11-18] MEDS ORDERED: Insulin Human REGular-Omnicell 100 Unit/mL IV ONE (22:30)
[2016-11-18 22:52] VITALS: BP 186/98; PULSE 95; RESP 20; O2SAT 100
[2016-11-18] MEDS ORDERED: Calcium GLUCO 10% (Gm) Inj 1 GM in Dextrose 5% 50 ML IV ONE (23:30)
[2016-11-19 00:08] VITALS: BP 196/90; PULSE 98; RESP 18; O2SAT 100
[2016-11-19] MEDS ORDERED: Ondansetron 2 mg/mL 2 mL Inj ONE (00:42)
[2016-11-19 00:45] LABS: APPEARANCE,URINE CLEAR (CLEAR,HAZY); COLOR,URINE YELLOW (YELLOW); OCCULT BLOOD,URINE NEGATIVE (NEGATIVE); PH,URINE 5.5 (5.0-8.0); UROBILINOGEN,URINE NORMAL (NORMAL)
[2016-11-19 01:49] VITALS: BP 176/87; PULSE 97; RESP 18; O2SAT 99
[2016-11-19 02:18] VITALS: BP 202/94; PULSE 98; RESP 16; O2SAT 98
--- NOTE | 2016-11-19 02:19 | ED.REPORT ---
HPI-Dyspnea / Wheezing Date of Service Nov 18, 2016 ED Provider: Yohannes Huizar MD Annie Santana is a pleasant 26-year-old woman with a history of diabetes type II diagnosed at 7 years old insulin-dependent, end-stage renal disease requiring hemodialysis 3 times a week, status post amputations metatarsals bilaterally, presents to [facility] emergency department with abrupt onset shortness of breath and tightness in her chest that occurred while she was at the dinner table roughly 4 hours before evaluation. She states she has never had this before, she feels a little lightheaded, she also states that her left leg is a little swollen compared to her right, and this is new as well. She is not on any anticoagulation other than aspirin, she recently had a peritoneal dialysis catheter removed and states that the removal site is hard, and painful. She has a dry cough, but she states that is not new. No recent illness, no fevers, chills, weakness in arms and sputum legs, abdominal pain other than that associated with the peritoneal dialysis shunt site, no nausea, vomiting, diarrhea. No rashes, no headaches. Nursing Notes Stated Complaint: SOB,TIGHT CHEST Chief Complaint: Respiratory Complaints Nursing Notes Reviewed: Yes Allergies: Coded Allergies: Contrast Media (Verified Allergy, Severe, FULL BODY RASH AND HIVES, ) nifedipine (Verified Allergy, Severe, Anaphylaxis, 10/21/16) "Throat closing up; couldn't breathe tramadol (Verified Allergy, Unknown, Rash, 10/21/16) Scheduled Amlodipine (Amlodipine) 10 Mg Tablet 10 MG PO HS Atenolol (Atenolol) 50 Mg Tablet 50 MG PO HS Carvedilol (Carvedilol) 25 Mg Tablet 50 MG PO BID Felodipine ER (Felodipine ER) 10 Mg Tab.er.24h 10 MG PO DAILY Insulin Aspart (NovoLOG U-100 Pen) 100 Unit/Ml Insuln.pen 1-12 UNITS SC ACHS 151-175 take 1unit 176-200 take 2units 201-225 take 3units 226-250 take 4units 251-275 take 5units 276-300 take 6units 301-325 take 7units 326-350 take 8units 351-375 take 9units 376-400 take 10units >400 take 12units Insulin Glargine (Lantus U100 Insulin Vial) 100 Unit/Ml Vial 20 UNIT SUBQ QAM Insulin Glargine (Lantus U100 Insulin Vial) 100 Unit/Ml Vial 40 UNIT SUBQ QPM Loratadine (Claritin) 10 Mg Capsule 10 MG PO DAILY Mycophenolate DR (Mycophenolic DR) 180 Mg Tablet 180 MG PO BID Nortriptyline (Nortriptyline) 25 Mg Capsule 25 MG PO HS Omeprazole (Omeprazole) 40 Mg Capsule.dr 40 MG PO DAILY Prednisone (PredniSONE) 5 Mg Tab 5 MG PO DAILY Ranitidine (Zantac) 150 Mg Tablet 150 MG PO BID Sevelamer Carbonate (Renvela) 800 Mg Tablet 2,400 MG PO TIDWM Tacrolimus (Tacrolimus) 1 Mg Capsule 1 MG PO BID Scheduled PRN Ondansetron (Ondansetron) 4 Mg Tablet 4 MG PO QID PRN PRN For Nausea General Time Seen by MD: 20:58 Chief Complaint Shortness of breath Sudden in Onset?: Yes Similar Sx Previous: No Past Medical History Past Medical History Notes: Academic Affairs Assistant: Dr. Ra iDckens and Dr. Mckeon Bush Regenerator: Dr. Jc Past Medical History Patient had peritoneal dialysis catheter removed on 11/06/2016. 1. End-stage renal disease--dialysis dependent with poor clearance and chronic uremia, 2. Hypertension with hypertensive heart disease and hypertensive nephrosclerosis. 3. 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 b. Fistula placement in left upper extremity February 2003, with previous attempted failed right-sided fistula. 4. Prednisone-induced diabetes mellitus, insulin requiring, diagnosed in September 2005. a. Admission in 2008 for DKA. 5. G3, P2, with one miscarriage. 6. GERD. 7. Allergic rhinitis. 8. Acute on chronic anemia 9. 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 Lower extremity vascular disease Past Surgical History Renal transplant, [facility], 2004 Fistula placement, 2009 Placement of peritoneal dialysis catheter. Right foot digital disarticulation 1 through 5 and transmetatarsal incision wound closure Reports: Tubal ligation Family History Denies myocardial infarction, stroke, cancer. non-contributory Smoking History Never Smoker Social History Alcohol Use: Denies alcohol use Drug Use: Denies drug use Other Social History: Good social support, Local resident Ambulatory Status Independent Review of Systems Complete sys rev & neg: except as marked. Physical Exam General: Laying in bed, apparently uncomfortable. HEENT: Normocephalic, atraumatic, EOMI grossly, mucous membranes moist, neck is supple without lymphadenopathy, there is no JVD appreciated, conjunctiva are pink, Cardiovascular: Tachycardic, regular rhythm, no clicks murmurs rubs, peripheral pulses 2/4 equal bilaterally Pulmonary: As excursion equal bilaterally, there are rails bilaterally diffuse, greater at the bases, there is expiratory wheezes bilaterally. Abdominal: Rotund, mildly firm, there is tenderness and discomfort with palpation, there is a bandage over peritoneal dialysis removal site, tenderness around, do not appreciate any leakage, purulence, or redness. There is a smaller 1 cm open lesion inferior to bandage, nondraining, noninflamed. There is no hepatojugular reflux. Extremities: Trace pitting edema bilaterally, greater left than right. Distal portion of bilateral feet surgically removed. Neuro: Neurologically grossly intact, strength is equal bilaterally upper and lower extremities. MSK: Patient is able to move extremities of her own volition. Strength is bilaterally 5 equal bilaterally. Initial Vital Signs Vital Signs (First) Date Time Temp Pulse Resp B/P Pulse Ox O2 Delivery O2 Flow Rate FiO2 11/18/16 20:09 35.9 93 38 202/113 84 Room Air Initial VS: Reviewed Interpretation & Diagnostics Lab Results Interpretation Result Diagram: 11/18/165 11/19/16 0120 Test 11/18/16 20:24 11/18/16 21:15 11/19/16 01:20 Urine Color Yellow (YELLOW) Urine Appearance Clear (CLEAR,HAZY) Urine pH 5.5 (5.0-8.0) Urine Specific [place] 1.010 (1.003-1.035) Urine Protein Negativemg/dL (NEG,TRACE) Urine Glucose (UA) 250mg/dL (NEGATIVE) Urine Ketones Tracemg/dL (NEGATIVE) Urine Occult Blood Negative (NEGATIVE) Urine Nitrite Negative (NEGATIVE) Urine Bilirubin Negative (NEGATIVE) Urine Urobilinogen Normalmg/dL (NORMAL) Urine Leukocyte Esterase Negative (NEGATIVE) Urine RBC 0-2/hpf (0-2) Urine WBC 0-5/hpf (0-5) Urine Epithelial Cells Occasional/hpf (NONE-MOD) Urine Crystals None seen (NONE SEEN) Urine Bacteria Few/hpf (NONE-FEW) Urine Hyaline Casts None/lpf (NONE) Urine Granular Casts None seen (NONE SEEN) Urine Waxy Casts None seen (NONE SEEN) Urine Red Blood Cell Casts None seen (NONE SEEN) Urine White Blood Cell Casts None seen (NONE SEEN) Urine Mucus Present (None Seen) Urine Trichomonas None seen (NONE SEEN) Urine Yeast None (NONE SEEN) Urinalysis Comment None Urine Culture Reflexed Not indicated White Blood Count 6.0th/mm3 (3.8-10.1) Red Blood Count 3.42mil/mm3 (3.90-5.20) Hemoglobin 9.6g/dL (12.0-15.6) Hematocrit 30.2% (35.0-46.0) Mean Corpuscular Volume 88.3fL (81-100) Mean Corpuscular Hemoglobin 28.1pg (27.0-35.0) Mean Corpuscular Hemoglobin Concent 31.8% (32.0-37.0) Red Cell Distribution Width 14.4% (12.3-15.4) Platelet Count 140bil/L (150-400) Neutrophils (%) (Auto) 74.5% (40-74) Lymphocytes (%) (Auto) 15.3% (14-46) Monocytes (%) (Auto) 4.5% (4-12) Eosinophils (%) (Auto) 4.5% (0-5) Basophils (%) (Auto) 0.7% (0-3) Sodium Level 134mEq/L (134-144) Chloride Level 91mEq/L (97-108) Carbon Dioxide Level 21mmol/L (18-29) Blood Urea Nitrogen 95mg/dL (6-20) Creatinine 8.70mg/dL (0.57-1.00) Estimat Glomerular Filtration Rate 8mL/min (>59) Calcium Level 7.8mg/dL (8.5-10.1) Total Bilirubin 0.3mg/dL (0.0-1.2) Aspartate Amino Transf (AST/SGOT) 24U/L (0-50) Alanine Aminotransferase (ALT/SGPT) 24U/L (0-32) Alkaline Phosphatase 149U/L (25-150) Troponin T 0.136ug/L (0.0-0.011) Pro-B-Type Natriuretic Peptide 50617fy/mL (0-130) Total Protein 6.6g/dL (6.4-8.4) Albumin 3.9g/dL (3.4-5.0) Hold Soliman Top Tube Received (Received) Potassium Level 5.4mEq/L (3.5-5.2) Glucose Level 67mg/dL (60-99) Lab Results Interpretation: Mild anemia Hyperkalemia Hyperglycemia iatrogenic hypoglycemia ECG Interpretation ECG Interpretation: Sinus rhythm, rate 90 CA interval 176, QTC 465. There are perceived tenting T waves and V2 V3 and V4 Interpreted by: ED physician X-Ray Chest Interpretation Chest Xray Interpretation: IMPRESSION: Shallow inspiration and diffuse interstitial prominence. Dictated by: Radha Petty M.D. on 11/18/2016 at 21:14 Interpretation / Wet Read by: Interpret - Radiologist Re-Eval/Medical Decision Med Decision/Clinical Course Patient was found to have pulmonary edema, hyperkalemia, hyperglycemia. Due to the hyperkalemia she was given calcium gluconate, Kayexalate, insulin. Repeat potassium 2 hours later has improved, she had complained of feeling as though her blood sugar was low and indeed it was 67, she was given 50 mL of D50. Due to the need for emergent dialysis, I spoke with the on-call hospitalist and manager business development hospice for [facility] in [facility], they agreed to accept the patient so long she remained stable and responded to treatment, which after repeat potassium evaluation, she has 7.4 to 5.4. She is remained stable, blood pressure slightly improved from 200 to the 170s, she is maintaining in the high 90s O2 saturations without any supplemental O2 Consultation #1: Referral / Consult Name: Zhanna Vasquez MD Consulted With: Nephrology Staff Counselor: Will see patient, Agrees with plan Note: Medically treat hyperkalemia,if stable for transport will dialyze upon arrival at [facility]. Consultation #2: Consulted With: Hospitalist Staff Counselor: Will see patient, Agrees with plan, Accepts admit Note: Spoke with at [facility] in [facility] in regards to accepting the patient transfer. He agrees with nephrology, as long as she is stable she should be transported via ACLS with remote telemetry capabilities. Severity: Serious condition Discharge & Departure Impression: Primary Impression: Hyperkalemia Additional Impressions: Pulmonary edema Chronicity: acute Qualified Code: J81.0 - Acute pulmonary edema Hyperglycemia ESRD (end stage renal disease) Disposition: Transfer, Acute Care Facility Discharge Condition All VS Reviewed: Yes Condition: Improved Referrals: Neelima Dumont (PCP) Attending Statement As attending of record for this patient, I conducted an independent history and physical examination, and I concur with the documentation per the resident note above, and as amended. Mert Moralez DO Nov 18, 2016 21:20 Yohannes Huizar MD Nov 19, 2016 06:38
== END 2016-11-19 02:45 | disposition short-term general hospital (02) ==
LOC: SED 19:46
DX: E87.5 Hyperkalemia (principal); J81.1 Chronic pulmonary edema; E11.65 Type 2 diabetes mellitus with hyperglycemia; I13.0 Hypertensive heart and chronic kidney disease with heart failure and stage 1 through stage 4 chronic kidney disease, or unspecified chronic kidney disease; E11.22 Type 2 diabetes mellitus with diabetic chronic kidney disease; N18.6 End stage renal disease; K21.9 Gastro-esophageal reflux disease without esophagitis; Z99.2 Dependence on renal dialysis; Z79.82 Long term (current) use of aspirin; Z88.5 Allergy status to narcotic agent; Z91.041 Radiographic dye allergy status; Z88.8 Allergy status to other drugs, medicaments and biological substances
CPT/HCPCS: 36415; 71010; 80053; 81000; 82947; 82948; 83880; 84132; 84484; 85025; 93005; 96374; 96375; 99285; J0610; J1815; J1940; J2270; J2405

== ENCOUNTER 2016-12-30 02:06 | Inpatient (IN) | payer MEDICARE, MEDICAID ==
[~2016-12-30] VITALS: Ht 152.4 cm; Wt 69.7 kg
[2016-12-30] VITALS (11 sets, daily range): BP systolic 133–228; BP diastolic 74–120; PULSE 79–104; RESP 14–20; O2SAT 88–98
--- NOTE | 2016-12-30 02:37 | ED.REPORT ---
HPI-Dyspnea / Wheezing Date of Service December 30, 2016 ED Provider: Dr. Cabrera Pt is a 26 year old female with a hx of DM and a kidney transplant on dialysis presenting to the ED complaining of SOB onset 1 hour ago. Associated symptoms include swelling in her left ankle. Pt last had dialysis yesterday. She denies any other symptoms at this time. Nursing Notes Stated Complaint: DIFFICULTY BREATHING Chief Complaint: Respiratory Distress Nursing Notes Reviewed: Yes Allergies: Coded Allergies: Contrast Media (Verified Allergy, Severe, FULL BODY RASH AND HIVES, ) nifedipine (Verified Allergy, Severe, Anaphylaxis, 10/21/16) "Throat closing up; couldn't breathe tramadol (Verified Allergy, Unknown, Rash, 10/21/16) Scheduled Amlodipine (Amlodipine) 10 Mg Tablet 10 MG PO HS Atenolol (Atenolol) 50 Mg Tablet 50 MG PO HS Carvedilol (Carvedilol) 25 Mg Tablet 50 MG PO BID Felodipine ER (Felodipine ER) 10 Mg Tab.er.24h 10 MG PO DAILY Insulin Aspart (NovoLOG U-100 Pen) 100 Unit/Ml Insuln.pen 1-12 UNITS SC ACHS 151-175 take 1unit 176-200 take 2units 201-225 take 3units 226-250 take 4units 251-275 take 5units 276-300 take 6units 301-325 take 7units 326-350 take 8units 351-375 take 9units 376-400 take 10units >400 take 12units Insulin Glargine (Lantus U100 Insulin Vial) 100 Unit/Ml Vial 20 UNIT SUBQ QAM Insulin Glargine (Lantus U100 Insulin Vial) 100 Unit/Ml Vial 40 UNIT SUBQ QPM Loratadine (Claritin) 10 Mg Capsule 10 MG PO DAILY Mycophenolate DR (Mycophenolic DR) 180 Mg Tablet 180 MG PO BID Nortriptyline (Nortriptyline) 25 Mg Capsule 25 MG PO HS Omeprazole (Omeprazole) 40 Mg Capsule.dr 40 MG PO DAILY Prednisone (PredniSONE) 5 Mg Tab 5 MG PO DAILY Ranitidine (Zantac) 150 Mg Tablet 150 MG PO BID Sevelamer Carbonate (Renvela) 800 Mg Tablet 2,400 MG PO TIDWM Tacrolimus (Tacrolimus) 1 Mg Capsule 1 MG PO BID Scheduled PRN Ondansetron (Ondansetron) 4 Mg Tablet 4 MG PO QID PRN PRN For Nausea General Time Seen by MD: 02:36 Chief Complaint Shortness of breath Hx Obtained From: Patient Arrived By: Walk-in Sudden in Onset?: Yes Onset Occurred: 1 - 4 hours ago Symptom Duration: Since onset Severity: Current: No pain currently Severity: Maximum: No pain Recent Healthcare: No recent doctor visit, Recent hospitalization, Previous surgery Similar Sx Previous: Yes Past Medical History Past Medical History Notes: Court Registry Officer: Dr. Ra Dickens and Dr. Mckeon Violent Crimes Detective: Dr. Jc Past Medical History Patient had peritoneal dialysis catheter removed on 11/06/2016. 1. End-stage renal disease--dialysis dependent with poor clearance and chronic uremia, 2. Hypertension with hypertensive heart disease and hypertensive nephrosclerosis. 3. 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 b. Fistula placement in left upper extremity February 2003, with previous attempted failed right-sided fistula. 4. Prednisone-induced diabetes mellitus, insulin requiring, diagnosed in September 2005. a. Admission in 2008 for DKA. 5. G3, P2, with one miscarriage. 6. GERD. 7. Allergic rhinitis. 8. Acute on chronic anemia 9. 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 Lower extremity vascular disease Past Surgical History Renal transplant, [facility], 2004 Fistula placement, 2008 Placement of peritoneal dialysis catheter. Right foot digital disarticulation 1 through 5 and transmetatarsal incision wound closure Reports: Tubal ligation Family History Denies myocardial infarction, stroke, cancer. non-contributory Smoking History Never Smoker Social History Alcohol Use: Denies alcohol use Drug Use: Denies drug use Other Social History: Good social support, Local resident Ambulatory Status Independent Review of Systems Respiratory: Reports: Shortness of breath Cardiovascular: Denies: Chest pain Musculoskeletal: Reports: Extremity swelling Complete sys rev & neg: except as marked. GI: Denies: Vomiting Physical Exam Initial Vital Signs Vital Signs (First) Date Time Temp Pulse Resp B/P Pulse Ox O2 Delivery O2 Flow Rate FiO2 12/30/16 02:10 36.0 104 16 218/114 88 Room Air Initial VS: Reviewed Head / Eyes: Atraumatic, Normocephalic, PERRL ENT: Mucous membranes moist, Conjunctiva normal, No scleral icterus Abdomen / GI: Soft, Non-tender, No guarding, No rebound, No distention Skin: Warm, Dry, No cyanosis Neurologic: Alert, Oriented, Nonfocal Psychiatric: Mood/affect normal, Behavior normal, Normal thought content General/Constitutional: Awake, Alert, No acute distress, Well appearing, Well hydrated Neck: Atraumatic, Supple Respiratory / Chest: Atraumatic, Breath sounds NL, Breath sounds = bilat, No respiratory distress Bibasilar rales Cardiovascular: Heart rate NL, Regular rhythm, Heart sounds NL, Peripheral circulation NL Lower Extremity / Pelvis / MS: Neurologic intact, Vascular intact 1+ pitting edema on the left, none on the right Upper Extremity / MS: Neurologic intact, Vascular intact Dialysis shunt left side appears to be functional. Interpretation & Diagnostics Lab Results Interpretation Result Diagram: 12/30/16 0256 12/30/16 0256 Test 12/30/16 02:56 White Blood Count 7.6th/mm3 (3.8-10.1) Red Blood Count 3.82mil/mm3 (3.90-5.20) Hemoglobin 11.2g/dL (12.0-15.6) Hematocrit 33.3% (35.0-46.0) Mean Corpuscular Volume 87.2fL (81-100) Mean Corpuscular Hemoglobin 29.3pg (27.0-35.0) Mean Corpuscular Hemoglobin Concent 33.6% (32.0-37.0) Red Cell Distribution Width 15.1% (12.3-15.4) Platelet Count 143bil/L (150-400) Neutrophils (%) (Auto) 78.7% (40-74) Lymphocytes (%) (Auto) 12.7% (14-46) Monocytes (%) (Auto) 4.4% (4-12) Eosinophils (%) (Auto) 3.4% (0-5) Basophils (%) (Auto) 0.4% (0-3) Prothrombin Time 10.2sec (8.1-12.5) Prothromb Time International Ratio 0.95ratio Sodium Level 136mEq/L (134-144) Potassium Level 4.5mEq/L (3.5-5.2) Chloride Level 90mEq/L (97-108) Carbon Dioxide Level 24mmol/L (18-29) Blood Urea Nitrogen 64mg/dL (6-20) Creatinine 8.26mg/dL (0.57-1.00) Estimat Glomerular Filtration Rate 8mL/min (>59) Glucose Level 421mg/dL (60-99) Calcium Level 7.6mg/dL (8.5-10.1) Magnesium Level 2.1mg/dL (1.6-2.6) Total Bilirubin 0.4mg/dL (0.0-1.2) Aspartate Amino Transf (AST/SGOT) 21U/L (0-50) Alanine Aminotransferase (ALT/SGPT) 18U/L (0-32) Alkaline Phosphatase 215U/L (25-150) Troponin T 0.169ug/L (0.0-0.011) Pro-B-Type Natriuretic Peptide 95262ak/mL (0-130) Total Protein 7.1g/dL (6.4-8.4) Albumin 4.2g/dL (3.4-5.0) ECG Interpretation Time: 03:13 Interpreted by: ED physician Normal ECG Interpretation: Normal ECG w/ rate of... (93) X-Ray Chest Interpretation Chest Xray Interpretation: Negative Interpretation / Wet Read by: Wet read ED physician Re-Eval/Medical Decision Med Decision/Clinical Course 26-year-old end-stage renal disease on dialysis presents with fluid overload for 24 hours before she supposed to dialyze. She has bibasilar rales and trace edema. She has developing respiratory distress. She is not hyperkalemic. EKG is unremarkable. She does have elevated troponin and elevated BNP consistent with previous visits. Her case was discussed with Dr. Dickens, nephrology. She will be admitted to the hospitalist service for dialysis and further evaluation. Re-Evaluation/Progress : Time of Eval: 05:53 Patient Status: Condition improved Re-Evaluation/Progress Note: Discussed plan for admission. Pt understands and agrees. Consultation #1: Referral / Consult Name: Ra Dickens DO Consulted With: Nephrology Call Returned at: 05:47 Note: Admit the pt. Consultation #2: Referral / Consult Name: Cesilia Johnson DO Consulted With: Hospitalist Call Returned at: 05:58 Car Framer: Will see patient, Agrees with plan, Accepts admit Counseled Regarding: Diagnosis, Lab results, Need for follow-up, When/why to return to ED Discharge & Departure Impression: Primary Impression: Fluid overload Additional Impression: End stage renal disease Disposition: ADMITTED TO HOSPITAL Discharge Condition All VS Reviewed: Yes Condition: Improved Referrals: Neelima Dumont (PCP) Philip Attestation Portions of this note were transcribed by Bonnie Amin. I, Dr. Cabrera personally performed the history, physical exam and medical decision-making; I reviewed and confirmed the accuracy of the information in the transcribed note. Signed by: Philip Sanchez, 12/30/2016 at 0600. copies to: Neelima Dumont Howard L MD December 30, 2016 02:37 BONNIE AMIN December 30, 2016 02:53
[2016-12-30 03:06] LABS: BASOPHILS % (AUTO) 0.4 % (0-3); EOSINOPHILS % (AUTO) 3.4 % (0-5); MONOCYTES % (AUTO) 4.4 % (4-12); Mean Corpuscular Hemoglobin 29.3 pg (27.0-35.0); Mean Corpuscular Volume 87.2 fL (81-100); NEUTROPHILS % (AUTO) 78.7 % (40-74); Platelet Count 143 bil/L (150-400)
[2016-12-30 03:26] LABS: INR 0.95 ratio
[2016-12-30] MEDS ORDERED: Furosemide 10 mg/mL 10 mL Inj IVPUSH ONE (03:40)
[2016-12-30 03:47] LABS: Magnesium 2.1 mg/dL (1.6-2.6)
[2016-12-30 03:55] LABS: TROPONIN T 0.169 ug/L (0.0-0.011)
[2016-12-30] MEDS ORDERED: Felodipine 5 mg ER24 Tablet PO ONE (06:35)
[2016-12-30] MEDS ORDERED: Ondansetron 2 mg/mL 2 mL Inj IVPUSH PRN ×2 (06:55→12:35)
[2016-12-30] MEDS ORDERED: Alum-Mag Hydrox-Simeth 30 mL Suspension PO PRN ×2 (06:55→12:35)
--- NOTE | 2016-12-30 09:20 | DRSVH ---
PROCEDURE: X-RAY CHEST ONE VIEW, PORTABLE ([id number]) INDICATIONS: bibasilar rales, dyspnea TECHNIQUE: One view of the chest was acquired. COMPARISON: [facility], CR, XR CHEST 1VW (PORTABLE), 11/18/2016, 20:46. FINDINGS: Surgical changes and devices: None. Lungs and pleura: Bilateral mostly perihilar interstitial pulmonary opacities. No lobar consolidation . No pneumothorax. Trace left pleural effusion. Mediastinum: Mediastinal contours appear normal. Heart size is normal. Bones and chest wall: No suspicious bony lesions. Overlying soft tissues appear unremarkable. IMPRESSION: Bilateral interstitial pulmonary opacities consistent with infection or fluid imbalance. Dictated by: Nathanael Chavarria M.D. on 12/30/2016 at 9:17 Approved by: Nathanael Chavarria M.D. on 12/30/2016 at 9:19
--- NOTE | 2016-12-30 09:24 | NUR ---
Admit Rm [id number] from ED A&O pt, arrived on unit from ED via wc. Pt c/o ARCHIBALD pain 12/12. Pt oriented to room and hospital. Denies having questions. Admit to be done still. Physician not yet seen pt. IV patent. Bed in low position, upper rails up, call light in reach. Addendum: 12/30/16 at 0990 by DESTINEY FAITH RN Arrived to unit at 0710
[2016-12-30] MEDS ORDERED: INSU100I13 SUBQ ×2 (10:24)
[2016-12-30] MEDS ORDERED: GABA-500 PO (10:28)
--- NOTE | 2016-12-30 11:46 | NUR ---
Transfer to dialysis 1120 Pt transported by primary Urvashi off unit at 1120 to dialysis room 244. Report given to Ivy in [facility]. Pt asleep during transport. VSS prior to leaving. Addendum: 12/30/16 at 1518 by DESTINEY FAITH RN Pt returned to unit at 1515. Denies pain. Lunch provided. BG administered in [facility].
[2016-12-30] MEDS ORDERED: Polyethylene Glycol (PEG) 17 Gm Powder PO PRN (12:35)
[2016-12-30] MEDS ORDERED: INSULIN GLARGINE 35 UNIT SUBQ SCH (12:45)
[2016-12-30] MEDS ORDERED: INSULIN GLARGINE 25 UNIT SUBQ SCH (12:45)
--- NOTE | 2016-12-30 13:09 | PCM.HPMED ---
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 She say she has had prior episodes of shortness of breath but never this sudden and intense. She denies any other associated symptoms other than possible mild chest pain with deep breathing. She does note that she has gained about 20kg over the past couple of months. She also reports coughing up some "pinkish" sputum which is unusual for her. Review of Systems: Constitutional: Negative, except as otherwise mentioned in the history above. Ophthalmologic: Negative, except as otherwise mentioned in the history above. Cardiovascular: Negative, except as otherwise mentioned in the history above. Respiratory: Negative, except as otherwise mentioned in the history above. Gastrointestinal: Negative, except as otherwise mentioned in the history above. Genitourinary: Negative, except as otherwise mentioned in the history above. Musculoskeletal: Negative, except as otherwise mentioned in the history above. Neurological: Negative, except as otherwise mentioned in the history above. Psychiatric: Negative, except as otherwise mentioned in the history above. Hematologic/Lymphatic: Negative, except as otherwise mentioned in the history above. Allergic/Immunologic: Negative, except as otherwise mentioned in the history above. Allergies Coded Allergies: Contrast Media (Verified Allergy, Severe, FULL BODY RASH AND HIVES, ) nifedipine (Verified Allergy, Severe, Anaphylaxis, 12/30/16) "Throat closing up; couldn't breathe tramadol (Verified Allergy, Unknown, Rash, 12/30/16) Home Medications Zofran 4mg PRN Mycophenolate 180mg BID Prograf 1mg BID Prednisone 5mg daily Carvedilol 50mg BID Nortriptyline 25mg BID Ranitidine 150mg BID Omeprazole 40mg daily Loratadine 10mg daily Renvela 800mg TIDAC Felodipine 10mg daily Exam Vital Signs & I/O Vital Sign- Last 8 Hours Date Time Temp Pulse Resp B/P Pulse Ox O2 Delivery O2 Flow Rate FiO2 12/30/16 10:31 36.6 91 16 133/76 96 Room Air 12/30/16 07:33 36.7 92 18 222/120 93 Room Air 12/30/16 06:54 95 20 221/100 98 Room Air 12/30/16 06:01 37.2 99 16 228/102 95 Room Air Lab & Micro Results Laboratory Tests Test 12/30/16 02:56 12/30/16 11:41 White Blood Count 7.6th/mm3 (3.8-10.1) Red Blood Count 3.82mil/mm3 (3.90-5.20) Hemoglobin 11.2g/dL (12.0-15.6) Hematocrit 33.3% (35.0-46.0) Mean Corpuscular Volume 87.2fL (81-100) Mean Corpuscular Hemoglobin 29.3pg (27.0-35.0) Mean Corpuscular Hemoglobin Concent 33.6% (32.0-37.0) Red Cell Distribution Width 15.1% (12.3-15.4) Platelet Count 143bil/L (150-400) Neutrophils (%) (Auto) 78.7% (40-74) Lymphocytes (%) (Auto) 12.7% (14-46) Monocytes (%) (Auto) 4.4% (4-12) Eosinophils (%) (Auto) 3.4% (0-5) Basophils (%) (Auto) 0.4% (0-3) Prothrombin Time 10.2sec (8.1-12.5) Prothromb Time International Ratio 0.95ratio Sodium Level 136mEq/L (134-144) 134mEq/L (134-144) Potassium Level 4.5mEq/L (3.5-5.2) 5.0mEq/L (3.5-5.2) Chloride Level 90mEq/L (97-108) 93mEq/L (97-108) Carbon Dioxide Level 24mmol/L (18-29) 21mmol/L (18-29) Blood Urea Nitrogen 64mg/dL (6-20) 74mg/dL (6-20) Creatinine 8.26mg/dL (0.57-1.00) 9.24mg/dL (0.57-1.00) Estimat Glomerular Filtration Rate 8mL/min (>59) 7mL/min (>59) Glucose Level 421mg/dL (60-99) 431mg/dL (60-99) Calcium Level 7.6mg/dL (8.5-10.1) 7.4mg/dL (8.5-10.1) Magnesium Level 2.1mg/dL (1.6-2.6) Total Bilirubin 0.4mg/dL (0.0-1.2) Aspartate Amino Transf (AST/SGOT) 21U/L (0-50) Alanine Aminotransferase (ALT/SGPT) 18U/L (0-32) Alkaline Phosphatase 215U/L (25-150) Troponin T 0.169ug/L (0.0-0.011) Pro-B-Type Natriuretic Peptide 87150pu/mL (0-130) Total Protein 7.1g/dL (6.4-8.4) Albumin 4.2g/dL (3.4-5.0) Microbiology 12/30/16 MRSA (PCR) - Final, Complete Result Diagram: 12/30/16 0256 12/30/16 1141 PMH 1. End-stage renal disease--dialysis dependent with poor clearance and chronic uremia 2. Hypertension with hypertensive heart disease and hypertensive nephrosclerosis. 3. 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 b. Fistula placement in left upper extremity February 2003, with previous attempted failed right-sided fistula. 4. Prednisone-induced diabetes mellitus, insulin requiring, diagnosed in September 2005. a. Admission in 2008 for DKA. 5. G3, P2, with one miscarriage. 6. GERD. 7. Allergic rhinitis. 8. Acute on chronic anemia 9. Gangrene of left big toe s/p amputation 10. Lower extremity vascular disease Surgical History Renal transplant, [facility], 2004 Fistula placement, 2008 Placement of peritoneal dialysis catheter Bilateral toes amputations Tubal ligation Family History Mother alive with DM2, dyslipidemia Father unknown Social History Hx Alcohol Use: No Hx Substance Use: No Hx Tobacco Use: No Smoking Status: Never Smoker Exam Vital Signs Vital Sign - Last Date Time Temp Pulse Resp B/P Pulse Ox O2 Delivery O2 Flow Rate FiO2 12/30/16 10:31 36.6 91 16 133/76 96 Room Air Exam General: No acute distress, Oriented x 3. HEENT: Normocephalic, atraumatic. Pupils equal, round, and reactive to light. Anicteric sclerae, moist conjunctivae, and no lid lag. Oropharynx free of erythema and cobble stoning with moist mucosa. Neck: Supple. No appreciable thyromegaly. Cardiovascular: Regular rate and rhythm Pulmonary: Clear to auscultation bilaterally with no crackles, wheezes, or rhonchi. Normal respiratory effort with no use of accessory muscles. Abdomen: Bowel tones present. Soft, nondistended. Mild tenderness to palpation in upper quadrants. Extremities: Amputated toes bilaterally with healing incisions. no edema. Skin: Normal temperature, turgor, and texture; no rash, ulcers, or subcutaneous nodules appreciated. Neurological: Cranial nerves grossly intact. Psychiatric: Normal mood and affect. Lab and Diagnostics Result Diagram: 12/30/16 0256 12/30/16 1141 X-Rays, CTs and MRIs Date of Service: 12/30/16 025 PROCEDURE: X-RAY CHEST ONE VIEW, PORTABLE ([id number]) IMPRESSION: Bilateral interstitial pulmonary opacities consistent with infection or fluid imbalance. Dictated by: Nathanael Chavarria M.D. on 12/30/2016 at 9:17 Approved by: Nathanael Chavarria M.D. on 12/30/2016 at 9:19 Assessment & Plan 26-year-old female with hypertension, diabetes, GERD, and ESRD on HD presenting with acute onset of shortness of breath. # Acute hypoxic respiratory failure and dyspnea present on admission. Oxygen was noted to be 88% on RA on presentation. Improved. - Chest x-ray is suggestive of possible pulmonary edema and fluid overload - Plan is for urgent hemodialysis (HD) today. - Check sputum culture and PCR - Check Echo - Followup clinically post dialysis. If symptoms resolve post HD then will likely not pursue any further workup other than noted above. IF on the other hand symptoms still persist will consider checking D-Dimer and possible further imaging like CTA to rule out PE. # Acute hypertensive urgency, present on admission. Active - BP 218/114 on presentation - Continue home antihypertensives - Followup BP after dialysis # End stage renal disease on hemodialysis, present on admission - Regular dialysis on Mon, Wed, Fri - Appreciate Nephrology consult. Will followup with recommendations - Plan for urgent HD today as noted above - Check Tacrolimus level # Insulin-dependent type II diabetes. Present on admission - Continue with home dose insulin including sliding scale. # Elevated Trop. Chronic and at baseline - Likely amplification due to underlying ESRD. - Echo as noted above Expected length of hospital stay is greater than 2 midnights and likely 2 days VTE Prophylaxis: Sub-Q Heparin (Unfractionated) VTE Mechanical Devices: Venous Foot Pump Resuscitation Status: CPR: Attempt Resuscitation (discussed and verified with patient) Time spent 60 min Garland Hickey December 30, 2016 13:09
[2016-12-30] MEDS ORDERED: Dextrose 10% 250 ML IV PRN (14:00)
--- NOTE | 2016-12-30 15:05 | NUR ---
Dialysis note: 2 1/2 hrs PUF 2500 ml net UF JONAS graft, accessed w/ no problems Pls see DTR for VS details Qb 400 Heparin given O2 @ 2L via NC on during tx Tolerated tx, slept at intervals Graft needle sites clotted w/in 10 min Stable condition at end of tx Report given to Ivy KWAN
[2016-12-30] MEDS: Heparin 5,000 Unit/mL Inj SUBQ SCH ×2 (15:36→20:38)
--- NOTE | 2016-12-30 16:36 | CONS ---
[address] [address] CONSULTATION REPORT PATIENT: AMIRA ZALDIVAR : 1990 MR#: [id number] ADMIT: 12/30/2016 JOB ID: [id number] DATE OF SERVICE: 12/30/2016 HISTORY: The patient is a 26-year-old female who was admitted to [facility] for acute pulmonary edema. She has a history of end-stage renal disease and renal consultation is being sought for further evaluation of her end-stage renal disease and acute pulmonary edema. I am quite familiar with the patient as I have followed her on a number of admissions over the last year. She has a longstanding history of end-stage renal disease secondary to membranoproliferative GN. She underwent a renal transplant in 2004 and this failed approximately a year and a half ago. She initially started back on peritoneal dialysis but because of very poor clearances and calciphylaxis, was transitioned over to hemodialysis. She normally dialyzes on Saturday, Saturday, and Saturday and her last dialysis was this past Saturday. She states that she was feeling well yesterday and did not have any problems with chest pain or breathing problems. Earlier this morning about 2 in the morning, she had an abrupt onset of orthopnea, dyspnea at rest and with minimal exertion, some chest tightness, and some nausea. She was seen in the emergency room at that time. Her blood pressure was significantly elevated with systolic blood pressure well over 200 and evidence of pulmonary edema. We were consulted, and I am making arrangements for her to receive an ultrafiltration treatment this morning. At time of my evaluation, she was resting quite comfortably and said that as long as she did not move very much she was not short of breath. She did not have any evidence of any conversational dyspnea at time of my evaluation. PAST MEDICAL HISTORY: Significant for end-stage renal disease, as detailed above, membranoproliferative glomerulonephritis, steroid-induced diabetes, failed renal transplant, calciphylaxis, and severe peripheral vascular disease requiring amputation of several toes. PAST SURGICAL HISTORY: Significant for renal transplant, as detailed above, AV fistula placement, peritoneal dialysis catheter, amputation of multiple toes on the right foot, incision and drainage, and tubal ligation. ALLERGIES: 1. CONTRAST MEDIA. 2. NIFEDIPINE. 3. TRAMADOL. SOCIAL HISTORY: She does not use alcohol, tobacco or illicit drugs and lives with her family. FAMILY HISTORY: Noncontributory. MEDICATIONS: At time of my evaluation included amlodipine, atenolol, carvedilol, Felodipine, insulin, loratadine, mycophenolate, nortriptyline, omeprazole, prednisone, ranitidine, Renvela and tacrolimus. REVIEW OF SYSTEMS: Is detailed above. Otherwise is negative for any severe headache, prior dyspnea, lower extremity edema, or chest pain prior to this episode. She also denies any nausea, vomiting, diarrhea, fever, or chills. PHYSICAL EXAMINATION: Revealed a mildly obese, cushingoid-appearing, 26-year-old, female who was alert and oriented x3, in no distress at time of my evaluation. Her blood pressure is 133/76 with a pulse rate of 90. HEENT examination is remarkable for cushingoid facies and pale sclerae. Neck is supple without adenopathy or thyromegaly, however, jugular venous distention was noted at 90 degrees. Lungs showed bibasilar rales. Heart was regular and rhythmical with a soft systolic murmur. Abdomen is soft, without any tenderness, rebound or guarding noted. There is evidence of hepatomegaly and the liver is mildly pulsatile. Extremities do not show any evidence of any clubbing, cyanosis, or edema. Skin turgor is good. LABORATORY EXAMINATION: This morning, her sodium is 138, potassium 4.5, chloride 90, bicarbonate 24, BUN and creatinine were 84 and 8.26. Hemoglobin was 11.2. PT and INR were normal. IMPRESSION: 1. Acute pulmonary edema. 2. End-stage renal disease-dialysis dependent. 3. Hypertension with hypertensive heart disease and hypertensive nephrosclerosis with congestive heart failure. RECOMMENDATION: The patient is being ultrafiltrated today for 2-1/2 hours on a dialyzer 12 of heparin at 500 an hour and will try to take 2 to 2.5 L of fluid off and make arrangements for her dialysis in the morning. I would like to change some of her blood pressure medications around as her current blood pressure medicines listed in her record are conflicting. Once again, I would like to thank you for allowing me to participate in the care of this most pleasant and interesting patient. I will be following her closely with you.
[2016-12-30] MEDS ORDERED: Insulin Human REGular 300 Unit/3 mL Inj SUBQ SCH (17:00)
[2016-12-30] MEDS ORDERED: INSULIN ASPART SC SCH (17:00)
[2016-12-30] MEDS: Insulin Human REGular 300 Unit/3 mL Inj SUBQ SCH ×2 (17:15→20:18)
--- NOTE | 2016-12-30 17:35 | NUR ---
[facility] signed
[2016-12-30] MEDS: MYCOPHENOLATE 180 MG PO SCH ×2 (20:08→20:30)
[2016-12-30] MEDS: Felodipine 5 mg ER24 Tablet PO SCH (20:18)
[2016-12-30] MEDS ORDERED: FELODIPINE 10 MG PO SCH (20:30)
[2016-12-30] MEDS ORDERED: Non-Formulary Medication (Ranitidine (Zantac) 150 MG) PO SCH (20:30)
[2016-12-30] MEDS ORDERED: Insulin GLARgine 100 Unit/mL Syringe SUBQ SCH (21:00)
[2016-12-30] MEDS ORDERED: NORTRIPTYLINE 25 MG PO SCH (21:00)
[2016-12-30] MEDS ORDERED: Non-Formulary Medication (Amlodipine 10 MG) PO SCH (21:00)
--- NOTE | 2016-12-30 21:27 | NUR ---
Home meds Mycophenolate was sent to pharmacy for verification.
--- NOTE | 2016-12-30 22:10 | NUR ---
BP BP at 2000hrs 180/92, PT refused to take the newly ordered Aldactone 25mg stating the reason her BP was up was because she hadnt take her home meds before coming to hospital. BP rechecked at 2145hrs and it was higher at 199/107. PT sitting up in chair and seems a little agitated, she agreed to take the Aldactone at this time, will check her BP again in an hour after she is lying down and less agitated.
--- NOTE | 2016-12-31 00:30 | NUR ---
BP BP down to 160/90 now, resting quietly in chair.
--- NOTE | 2016-12-31 02:10 | NUR ---
Spilled tea PT asked for some hot tea, she received it then a few minutes later spilled it on her RT lower ABD, no saini noted just a small older bruise. Ice was applied for comfort.
[2016-12-31 05:05] VITALS: BP 150/86; PULSE 76; RESP 16; O2SAT 95
[2016-12-31 06:22] LABS: BASOPHILS % (AUTO) 0.4 % (0-3); EOSINOPHILS % (AUTO) 3.6 % (0-5); MONOCYTES % (AUTO) 6.1 % (4-12); Mean Corpuscular Hemoglobin 30.1 pg (27.0-35.0); Mean Corpuscular Volume 86.5 fL (81-100); NEUTROPHILS % (AUTO) 72.7 % (40-74); Platelet Count 126 bil/L (150-400)
[2016-12-31] MEDS ORDERED: Pantoprazole 40 mg ER24 Tablet PO SCH (06:30)
[2016-12-31] MEDS: Heparin 5,000 Unit/mL Inj SUBQ SCH (08:08)
[2016-12-31] MEDS: MYCOPHENOLATE 180 MG PO SCH (08:11)
[2016-12-31] MEDS: Felodipine 5 mg ER24 Tablet PO SCH (08:11)
[2016-12-31] MEDS: Insulin Human REGular 300 Unit/3 mL Inj SUBQ SCH ×2 (08:14→12:32)
[2016-12-31] MEDS ORDERED: Insulin GLARgine 100 Unit/mL Syringe SUBQ SCH (08:30)
[2016-12-31] MEDS ORDERED: predniSONE 5 mg Tablet PO SCH (08:30)
[2016-12-31 08:51] VITALS: PULSE 81
[2016-12-31 09:06] VITALS: BP 123/67; PULSE 82; RESP 16; O2SAT 97
--- NOTE | 2016-12-31 10:05 | NUR ---
Social Work-initial assessment/ readiness for discharge: Data:See initial assessment. Pt is a 26 y/o female who was admitted on 12/30/16 for fluid overload per H&P. Pt's insurance is [facility] and [facility] and PCP is HARSHA Butcher. EMR Reviewed. Pt's readmission score is 3-high risk. SW met with pt at bedside to discuss discharge planning, SW role explained. Pt is alert and oriented x3. Pt resides at home with her and family where she remains independent with ALDS. Pt has no HH Or SNF history. Pt has no oil heaterman care insurance or VA benefits. Pt does not use any DME and does not drive. SW discussed DPOA/advanced directive, pt confirms she has not completed this and is not interested in any information. Pt's DAVID CM is Susan Obrien, updated clinicals faxed. Pt goes to dialysis M/W/. Per RN notes, pt has been up ambulating in her room. Pt states her mother or will provide transport home at discharge. SW provided phone number and plan on white board in room. No anticipated discharge needs. SW will continue to follow if needs arise. Assessment:pt who is independent at baseline. Plan:Pt to discharge home when medically stable via POV. Pt continue with DAVID at home. No anticipated discharge needs. SW will continue to follow if needs arise. LORENA Gimenez Addendum: 12/31/16 at 1009 by SUSAN GOMEZ SS Amended: Links added.
--- NOTE | 2016-12-31 10:57 | PCM.PNNEPH ---
Subjective Date of Service December 31, 2016 Subjective Patient continues to do well. Her breathing is improved and she denies any headache, chest pain, orthopnea. This morning her BUN and creatinine were 84 and 11.3 with a potassium of 4.3. Exam Vital Signs Vital Sign - Last Date Time Temp Pulse Resp B/P Pulse Ox O2 Delivery O2 Flow Rate FiO2 12/31/16 09:06 36.7 82 16 123/67 97 Room Air Intake and Output 12/30/16 12/30/16 12/31/16 Cumulative From/Thru 15:00 23:00 07:00 12/30/16 02:10 - 12/31/16 05:46 Intake Total 400 ml 500 ml 900 ml Output Total 2500 ml 0 ml 50 ml 2550 ml Balance -2500 ml 400 ml 450 ml -1650 ml Intake Oral 400 ml 500 ml 900 ml Output Urine Total 0 ml 50 ml 50 ml Ultrafiltrate 2500 ml 2500 ml # Voids 0 0 Exam Neck is supple without adenopathy, thyromegaly, venous distention. Lungs are clear to auscultation. Heart was regular and rhythmical with a soft systolic murmur. Abdomen soft without any tenderness rebound or guarding noted. Her abdomen is mildly distended. Extremities show any evidence of any clubbing cyanosis or edema. Lab and Diagnostics Result Diagram: 12/31/16 0610 12/31/16 0610 X-Rays, CTs and MRIs Date of Service: 12/30/16 025 PROCEDURE: X-RAY CHEST ONE VIEW, PORTABLE ([id number]) IMPRESSION: Bilateral interstitial pulmonary opacities consistent with infection or fluid imbalance. Dictated by: Nathanael Chavarria M.D. on 12/30/2016 at 9:17 Approved by: Nathanael Chavarria M.D. on 12/30/2016 at 9:19 Plan Impression Impression #1 acute pulmonary edema which is resolving #2 end-stage renal disease dialysis dependent #3 hypertension with hypertensive heart disease and hypertensive nephrosclerosis with congestive heart failure which is resolving Recommendations #1. She dialyzes for 4 hours on a max dialyzer, 3 potassium bath, 450 blood flow, 600 dialysate flow, 1200 And 500, and We Will Try to Take 2-3 L of Fluid off. Reportedly She Can Be Discharged Later Today Following Dialysis. Ra Dickens DO December 31, 2016 10:57
--- NOTE | 2016-12-31 12:15 | DRSVH ---
[facility] [address] [place] [address] Echocardiogram Report Name: AMIRA ZALDIVAR Study Date: 12/31/2016 Height: 60 in Hospital Exam Location: [facility] Weight: 154 lb Gender: Female BSA: 1.7 m2 : 1990 Age: 26 yrs BP: 150/86 mmHg Reason For Study: SOB History: RENAL FAILURE Ordering Physician: HOSPITALIST [facility] Performed By: Amy Meek Referring Physician: Neelima Dumont Interpretation Summary 1) Mild concentrrc left ventricular hypertrophy with normal size, wall motion, and systolic function (65-70%) 2) Normal right ventricular sizend function. 3) Mildly increased gradients across the aortic and mitral valves, likely due to hyperdynamic state. Valves themselves do not have any significant stenosis or regurgitation. 4) Compared to the Echo done 05/29/2016, no significant change. Procedure: A two-dimensional transthoracic echocardiogram with color flow and Doppler was performed. The study quality was technically adequate. Comparison is made with the echocardiogram of 05-29-2016. The patient was in normal sinus rhythm during the exam. Left Ventricle: The left ventricle is normal in size. There is no echo evidence for significant left ventricular outflow tract obstruction. There is mild concentric left ventricular hypertrophy. There is no ventricular septal defect visualized. Left ventricular systolic function is normal without focal wall motion abnormalities. The ejection fraction is estimated to be 65-70%. Spectral Doppler of the mitral valve shows a normal E/A wave ratio. Mitral Valve: The mitral valve leaflets appear mildly thickened, but open well. The mean mitral valve pressure gradient is 5 mmHg. There is trace mitral regurgitation. Aortic Valve: The aortic valve is trileaflet. The aortic valve opens well. Dynamic flow through aortic valve. There is no aortic valve stenosis. The peak aortic velocity is 2.1 m/sec. The aortic valve mean gradient is 17 mmHg. The peak aortic velocity on the previous exam was 2.1 m/sec. No aortic regurgitation is present. Tricuspid Valve: The tricuspid valve leaflets are thin and pliable. There is mild tricuspid regurgitation. The right ventricular systolic pressure is estimated at 29 mmHg assuming a right atrial pressure of 3 mm Hg. Pulmonic Valve: The pulmonic valve leaflets are thin and pliable; valve motion is normal. There is a trace or physiologic amount of pulmonic regurgitation. Great Vessels: The aortic root is normal size. The dimensions of the ascending aorta are normal. The pulmonary artery is normal size. The IVC is of normal diameter and collapses greater than 50% with a sniff. This suggests a low right atrial pressure of 3 mm Hg. Pericardium/ Pleura There is no pericardial effusion. There is no pleural effusion. MMode/2D Measurements & Calculations LVIDd: 4.8 cm LA dimension: 4.8 cm RA long axis LVOT diam: 2.1 cm LVIDs: 3.2 cm AoV Opening FS: 34.3 % LA A2 area: 23.9 cm RA area EPSS: 0.89 cm LA A4 area: 26.0 cm Ao root diam IVSd: 1.1 cm LA length (vol) : 18.5 cm LVPWd: 1.2 cm RA vol Aortic Jxn: 2.3 cm LA vol: 83.6 ml : 53.4 ml asc Aorta Diam LA vol index RA : 32.0 mm2 Ao Arch Diam (Prox Trans): 2.6 cm IVC diam: 2.0 cm LV alcaraz. diameter/BSA LV sys. diameter/BSA RVD1 (basal) RVD2 (mid): 3.8 cm (cm/m^2): 2.9 (cm/m^2): 1.9 Doppler Measurements & Calculations Ao V2 max MV E max bryant MV E/A: 1.2 TR max bryant : 206.8 cm/sec : 149.0 cm/sec Med Peak E' Bryant : 255.9 cm/sec Ao max P.1 mmHg MV A max bryant TR max PG Ao mean P.2 mmHg : 127.8 cm/sec E/E' med: 28.5 : 26.2 mmHg LVOT Max Bryant Lat Peak E' Bryant PA V2 max : 132.1 cm/sec MVA(VTI): 1.8 cm2 : 130.2 cm/sec E/E' lat: 19.0 PA mean PG LARA(I,D): 2.2 cm E/e' average sev ratio: 0.63 PA Accel Time Pulm A Revs Dur : 0.16 sec MV A dur : 0.13 sec MV V2 mean Ao V2 mean LV V1 max PG PA V2 mean : 109.9 cm/sec : 145.9 cm/sec : 100.1 cm/sec MV mean P.2 mmHg Ao V2 VTI: 37.8 cm LV V1 VTI MV V2 VTI: 45.7 cm : 23.8 cm MV dec time: 0.21 secAVA(V,D): 2.3 cm2 LARA indexed to BSA Pulm A Revs Dur - MV A (cm^2/m^2): 1.3 Dur: 0.01 msec Reading Physician:12:16 PM
[2016-12-31 12:36] VITALS: BP 147/75; PULSE 84; RESP 14; O2SAT 95
--- NOTE | 2016-12-31 14:00 | NUR ---
Off unit for dialysis
[2016-12-31 14:45] VITALS: BP 146/89; PULSE 81
--- NOTE | 2016-12-31 17:41 | PCM.DIMED ---
Discharge Instructions Date of Service December 31, 2016 Dates of Hospitalization December 30, 2016 at 06:40 Discharge Diagnosis Discharge Diagnosis # Acute hypoxic respiratory failure and shortness of breath, present on admission. Resolved - Chest x-ray suggestive of likely pulmonary edema and fluid overload # Acute hypertensive urgency, present on admission. Improved after hemodialysis # End stage renal disease (ESRD) on hemodialysis, present on admission # Insulin-dependent type II diabetes. Present on admission # Elevated Trop. Chronic and at baseline - Likely amplification due to underlying ESRD. - Echocardiogram without any acute changes Medication Instructions Additional med instructions Resume home medications as before Diet Discharge Diet: Heart Healthy, Diabetic, Renal Diet Activity Discharge Activity: No restrictions Call your provider Call your provider for: Fever or Chills, Shortness of breath, Bleeding, Chest pain, Vomitting Patient Instructions Patient Instructions Seek immediate medical attention if any new or worsening signs or symptoms occur. Follow-up plan 1. Followup with your unit clerk and hemodialysis as previously scheduled. 2. Followup with primary care provider in one week Follow-up Provider: Elodia Mckeon MD Provider: Neelima Dumont Masoud December 31, 2016 17:41
--- NOTE | 2016-12-31 17:49 | PCM.DC.MED ---
Discharge Summary Date of Service December 31, 2016 Dates of Hospitalization Date of Hospital Admission December 30, 2016 at 06:40 Date of Discharge: December 31, 2016 Providers: Admitting Physician: Cesilia Johnson DO Primary Care Physician: Neelima Dumont Attending Physician: Cesilia Johnson DO Diagnosis at Time of Discharge Diagnosis at Time of Discharge # Acute hypoxic respiratory failure and shortness of breath, present on admission. Resolved - Chest x-ray suggestive of likely pulmonary edema and fluid overload # Acute hypertensive urgency, present on admission. Improved after hemodialysis # End stage renal disease (ESRD) on hemodialysis, present on admission # Insulin-dependent type II diabetes. Present on admission # Elevated Trop. Chronic and at baseline - Likely amplification due to underlying ESRD. - Echocardiogram without any acute changes Consultations 1. Nephrology (Dr. Dickens) Procedures XRay, CTs & MRIs Date of Service: 12/30/16 0252 PROCEDURE: X-RAY CHEST ONE VIEW, PORTABLE ([id number]) IMPRESSION: Bilateral interstitial pulmonary opacities consistent with infection or fluid imbalance. Dictated by: Nathanael Chavarria M.D. on 12/30/2016 at 9:17 Approved by: Nathanael Chavarria M.D. on 12/30/2016 at 9:19 Cardiac Echo Impression Date of Service: 12/31/16 1402 Echocardiogram Report Interpretation Summary 1) Mild concentrrc left ventricular hypertrophy with normal size, wall motion, and systolic function (65-70%) 2) Normal right ventricular sizend function. 3) Mildly increased gradients across the aortic and mitral valves, likely due to hyperdynamic state. Valves themselves do not have any significant stenosis or regurgitation. 4) Compared to the Echo done 05/29/2016, no significant change. 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 She say she has had prior episodes of shortness of breath but never this sudden and intense. She denies any other associated symptoms other than possible mild chest pain with deep breathing. She does note that she has gained about 20kg over the past couple of months. She also reports coughing up some "pinkish" sputum which is unusual for her. Hospital Course # Acute hypoxic respiratory failure and dyspnea present on admission. Oxygen was noted to be 88% on RA on presentation. Resolved after dialysis - Chest x-ray is suggestive of possible pulmonary edema and fluid overload - Received 2 rounds of dialysis during this hospital - Echo unremarkable and without acute change (as noted above) # Acute hypertensive urgency, present on admission. Resolved after dialysis - BP 218/114 on presentation - Continue home antihypertensives # End stage renal disease on hemodialysis, present on admission - Regular dialysis on Sat, Sat, Sat - Appreciate Nephrology consult. - Urgent HD on Saturday followed by regular dialysis on Saturday - Tacrolimus level is pending by day of discharge and will defer to her digital media sales consultant to followup as outpatient # Insulin-dependent type II diabetes. Present on admission - Continue with home dose insulin including sliding scale. # Elevated Trop. Chronic and at baseline - Likely amplification due to underlying ESRD. - Echo as noted above Patient says wants to go home post dialysis today. cleared for d/c per discussion with nephrology Exam Vital Signs (Last) Date Time Temp Pulse Resp B/P Pulse Ox O2 Delivery O2 Flow Rate FiO2 12/31/16 12:36 36.7 84 14 147/75 95 Room Air Exam General: No acute distress Neck: Supple. Cardiovascular: Regular rate and rhythm Pulmonary: Clear to auscultation bilaterally Abdomen: Bowel tones present. Soft, nondistended. Extremities: Amputated toes bilaterally with healing incisions. no edema. Neurological: Cranial nerves grossly intact. Test 12/30/16 02:56 12/31/16 06:10 Prothrombin Time 10.2sec (8.1-12.5) Prothromb Time International Ratio 0.95ratio Magnesium Level 2.1mg/dL (1.6-2.6) Total Bilirubin 0.4mg/dL (0.0-1.2) Aspartate Amino Transf (AST/SGOT) 21U/L (0-50) Alanine Aminotransferase (ALT/SGPT) 18U/L (0-32) Alkaline Phosphatase 215U/L (25-150) Troponin T 0.169ug/L (0.0-0.011) Pro-B-Type Natriuretic Peptide 84297qc/mL (0-130) Total Protein 7.1g/dL (6.4-8.4) Albumin 4.2g/dL (3.4-5.0) White Blood Count 5.6th/mm3 (3.8-10.1) Red Blood Count 3.55mil/mm3 (3.90-5.20) Hemoglobin 10.7g/dL (12.0-15.6) Hematocrit 30.7% (35.0-46.0) Mean Corpuscular Volume 86.5fL (81-100) Mean Corpuscular Hemoglobin 30.1pg (27.0-35.0) Mean Corpuscular Hemoglobin Concent 34.9% (32.0-37.0) Red Cell Distribution Width 14.7% (12.3-15.4) Platelet Count 126bil/L (150-400) Neutrophils (%) (Auto) 72.7% (40-74) Lymphocytes (%) (Auto) 16.7% (14-46) Monocytes (%) (Auto) 6.1% (4-12) Eosinophils (%) (Auto) 3.6% (0-5) Basophils (%) (Auto) 0.4% (0-3) Sodium Level 136mEq/L (134-144) Potassium Level 4.3mEq/L (3.5-5.2) Chloride Level 91mEq/L (97-108) Carbon Dioxide Level 23mmol/L (18-29) Blood Urea Nitrogen 84mg/dL (6-20) Creatinine 11.32mg/dL (0.57-1.00) Estimat Glomerular Filtration Rate 6mL/min (>59) Glucose Level 218mg/dL (60-99) Calcium Level 8.1mg/dL (8.5-10.1) Discharge Medications Discharge Medications Atenolol (Atenolol) 50 Mg Tablet 50 MG PO HS (Reported) Carvedilol (Carvedilol) 25 Mg Tablet 50 MG PO BID (Reported) Felodipine ER (Felodipine ER) 10 Mg Tab.er.24h 10 MG PO BID (Reported) Gabapentin (Gabapentin) 100 Mg Capsule 200 MG PO BID (Reported) Insulin Aspart (NovoLOG U-100 Pen) 100 Unit/Ml Insuln.pen 1-12 UNITS SC ACHS ( Reported) 151-175 take 1unit 176-200 take 2units 201-225 take 3units 226-250 take 4units 251-275 take 5units 276-300 take 6units 301-325 take 7units 326-350 take 8units 351-375 take 9units 376-400 take 10units >400 take 12units Insulin Glargine (Lantus U100 Solostar Insulin Pen) 100 Unit/1 Ml Insuln.pen 25 UNIT SUBQ QAM (Reported) Insulin Glargine (Lantus U100 Solostar Insulin Pen) 100 Unit/1 Ml Insuln.pen 35 UNIT SUBQ QPM (Reported) Loratadine (Claritin) 10 Mg Capsule 10 MG PO QAM (Reported) Mycophenolate DR (Mycophenolic DR) 180 Mg Tablet 180 MG PO BID (Reported) Nortriptyline (Nortriptyline) 25 Mg Capsule 25 MG PO HS (Reported) Omeprazole (Omeprazole) 40 Mg Capsule.dr 40 MG PO DAILY (Reported) Prednisone (PredniSONE) 5 Mg Tab 5 MG PO DAILY (Reported) Ranitidine (Zantac) 150 Mg Tablet 150 MG PO BID (Reported) Sevelamer Carbonate (Renvela) 800 Mg Tablet 2,400 MG PO TIDWM (Reported) Tacrolimus (Tacrolimus) 1 Mg Capsule 1 MG PO BID (Reported) As needed Ondansetron (Ondansetron) 4 Mg Tablet 4 MG PO QID PRN PRN For Nausea (Reported) Additional med instructions Resume home medications as before Followup Plan Disposition: Home Follow-up plan 1. Followup with your digital media sales consultant and hemodialysis as previously scheduled. 2. Followup with primary care provider in one week Discharge Diet: Heart Healthy, Diabetic, Renal Diet Discharge Activity: No restrictions Patient Instructions Seek immediate medical attention if any new or worsening signs or symptoms occur. Patient expresses clear verbal understanding of mentioned assessment, plan, and recommendations and agrees Follow-up Provider: Elodia cMkeon MD Provider: Neelima Dumont Time spent 35 min copies to: Neelima Dumont; Elodia Mckeon MDjoanneGarland December 31, 2016 17:49
--- NOTE | 2016-12-31 19:10 | NUR ---
Dialysis note: 4 hrs tx 3000 ml net UF JONAS graft Pls see DTR for VS details Qb 450 Heparin given O2 @ 2L via NC on during tx Tolerated tx, slept at intervals Graft needle sites clotted w/in 10 min Stable condition at end of tx Report given to Sera KWAN
[2016-12-31 19:37] VITALS: BP 169/95; PULSE 88; RESP 18; O2SAT 100
--- NOTE | 2016-12-31 19:43 | NUR ---
Discharge: Pt returned from dialysis stable and ready to be discharged home. Home medication and personal belongings home with pt. IV d/c'd intact. Pt ambulated to front door escorted by staff, where mother picked up pt.
== END 2016-12-31 19:51 | disposition home or self-care (01) | DRG 682 ==
LOC: SED 02:06 → MPC 06:40 → OBSVTOIN 06:40
PROVIDERS: ADMIT Internal Medicine; ATTEND Internal Medicine
PROC: 5A1D60Z (ICD-10-PCS; principal; 2016-12-30)
DX: I12.0 Hypertensive chronic kidney disease with stage 5 chronic kidney disease or end stage renal disease (principal); N18.6 End stage renal disease; J96.01 Acute respiratory failure with hypoxia; J81.0 Acute pulmonary edema; T86.12 Kidney transplant failure; I16.0 Hypertensive urgency; E11.9 Type 2 diabetes mellitus without complications; Z79.4 Long term (current) use of insulin; Z99.2 Dependence on renal dialysis